=== PATIENT | male | born 1965 | race Caucasian/White ===

== ENCOUNTER 2016-11-08 09:59 | Emergency (ER) | payer OTHER, BC ==
[~2016-11-08] VITALS: Ht 185.4 cm; Wt 119.7 kg
[~2016-11-08 09:59] MED LIST: ASPI81TA28 PO; B-CO-34 PO; CALC1CAP36 PO; CRS10 PO; INSUINJ12 SC; LBT100 PO; LSX80 PO; NVLGI SC; PHS667 PO; TICA1TAB PO
[2016-11-08 10:12] VITALS: TEMP 36.9; Ht 185.4 cm; Wt 119.7 kg
[2016-11-08] MEDS ORDERED: INSPMPNVLG (10:49)
[2016-11-08] MEDS ORDERED: FURO80TA63 PO (10:49)
--- NOTE | 2016-11-08 11:02 | DIAGNOSTIC IMAGING REPORT ---
RIGHT FOOT 3 VIEWS HISTORY: Right foot pain. COMPARISON: None. FINDINGS: Fracture within the anterior to mid calcaneus which demonstrates inferior displacement of the fragment measuring up to 5 mm. This favors a subacute/healing fracture. The fracture is likely comminuted. Soft tissue swelling within the hindfoot. The Lisfranc joint is intact. Vascular calcifications are noted. Mild dorsal forefoot soft tissue swelling. Small focal erosion within the head of the proximal phalanx of the first toe and head of the third metatarsal demonstrating sclerotic and overhanging edges. Therefore, this is consistent with gouty arthritis. No radiopaque foreign bodies. IMPRESSION: 1. Comminuted and slightly displaced anterior to mid calcaneal fracture. This is age indeterminate but may represent a subacute/partial healing fracture. 2. Focal erosions at the first toe and head of the third metatarsal consistent with gouty arthritis. Electronically signed by: Dmitri Abdalla M.D. 11/08/2016 11:00 AM Dictated Date/Time: 11/08/2016 10:57 AM
--- NOTE | 2016-11-08 11:33 | DIAGNOSTIC IMAGING REPORT ---
AP PELVIS AND RIGHT HIP 4 VIEWS CLINICAL HISTORY: Right hip pain COMPARISON STUDY: No previous studies for comparison. FINDINGS: There are vascular calcifications present. There are no acute fractures. There are no dislocations. There are bilateral femoral head neck junction bumps. This finding has been reported in femoral acetabular impingement syndrome. There are no erosive or destructive changes. IMPRESSION: 1. No acute fractures. No destructive lesions are visualized. 2. Femoral head neck junction bumps. This finding has been reported in femoral acetabular impingement syndrome Electronically signed by: Simone Chauhan M.D. 11/08/2016 11:32 AM Dictated Date/Time: 11/08/2016 11:30 AM
--- NOTE | 2016-11-08 11:54 | EMERGENCY ROOM VISIT NOTE ---
History First contact with patient: 10:43 Chief Complaint: FOOT PAIN Stated Complaint: SWELLING, PAIN TO RIGHT FOOT History of Present Illness The patient is a 51 year old male who presents to the Emergency Room via private vehicle coming by with complaints of "swelling, pain to right foot ". The patient states that last night, around 1 AM/midnight he took 2 steps, and heard a loud crack in his right heel region. He has diabetes, as well as neuropathy and is unsure if he has broken his foot. He also participates in dialysis 3 times a week, with his next episode being tomorrow 5 AM. He also has chronic pain in the right hip and right groin. He does perform lots of walking and is a assistant track and field coach. He has been seeing a chiropractor with some relief. He denies any chest pain, shortness of breath, fevers or chills. He denies any history of blood clot. He does note some swelling in the right leg. Review of Systems A complete 10-point Review of Systems was discussed with the patient, with pertinent positives and negatives listed in the History of Present Illness. All remaining Review of Systems questions can be considered negative unless otherwise specified. Past Medical/Surgical History Diabetes, dialysis, Family History No pertinent. Social History Smoking Status: Never Smoker Marital Status: Housing Status: lives with family Patient lives in [facility]. Current/Historical Medications Scheduled Aspirin (Aspirin Ec), 81 MG PO DAILY Calcitriol (Calcitriol), 0.25 MCG PO Q2D Calcium Acetate (Phoslo 667 Mg), 1,334 MG PO TIDM Furosemide (Lasix), 1 TAB PO DAILY Insulin Aspart (novoLOG INSULIN PUMP ), 1 EA N/A UD Labetalol HCl (Labetalol HCl), 200 MG PO BID Rosuvastatin Calcium (Crestor), 10 MG PO DAILY Physical Exam Vital Signs Date Time Temp Pulse Resp B/P (MAP) Pulse Ox O2 Delivery O2 Flow Rate FiO2 11/08/16 12:24 70 16 93 Room Air 11/08/16 10:23 72 16 179/83 11/08/16 10:12 36.9 75 18 148/80 95 Room Air Physical Exam VITAL SIGNS - Vital signs and nursing notes were reviewed. Patient is afebrile , blood pressure 148/80, non-tachycardic and saturating well on room air 95%. GENERAL -51-year-old male appearing his stated age who is in no acute distress. Communicates well with provider and answers questions appropriately. SKIN - Without rashes. Evidence of surgical change in the right bicep region. HEAD - NC/AT. LUNGS - Chest wall symmetric without accessory muscle use, intercostals retractions, or central cyanosis. Normal vesicular breath sounds CTA B/L. No wheezes, rales, or rhonchi appreciated. CARDIAC - RRR with S1/S2. No murmur, rubs, or gallops appreciated. ABDOMEN - Abdominal contour without pulsations or visible masses. BS normoactive all four quadrants. No tenderness, palpable masses, hepatosplenomegaly, or ascites noted. No hernia in the right inguinal canal noted. EXTREMITIES - No clubbing or peripheral cyanosis. No pretibial edema present. Tenderness to palpation overlying the calcaneal region. Slight edema noted of the right lower extremity. Decreased neurologic sensation, chronic. He is vascularly intact. +5/5 strength noted in UE/LE bilaterally. Medical Decision & Procedures ER Provider Diagnostic Interpretation: BILATERAL LOWER EXTREMITY VENOUS DOPPLER CLINICAL HISTORY: Right calf edema. Pain. COMPARISON STUDY: Bilateral lower extremity venous Doppler September 01 2013. TECHNIQUE: Sonography of the deep venous system of the bilateral lower extremities was performed. Compression and augmentation were evaluated. FINDINGS: The bilateral common femoral, superficial femoral and popliteal veins were compressible. Augmentation was normal. Flow was shown within the deep calf vessels. Note was made of right calf subcutaneous edema. IMPRESSION: No evidence of deep venous thrombus within the bilateral lower extremities. Electronically signed by: Estrada Acosta M.D. 11/08/2016 11:55 AM Dictated Date/Time: 11/08/2016 11:54 AM AP PELVIS AND RIGHT HIP 4 VIEWS CLINICAL HISTORY: Right hip pain COMPARISON STUDY: No previous studies for comparison. FINDINGS: There are vascular calcifications present. There are no acute fractures. There are no dislocations. There are bilateral femoral head neck junction bumps. This finding has been reported in femoral acetabular impingement syndrome. There are no erosive or destructive changes. IMPRESSION: 1. No acute fractures. No destructive lesions are visualized. 2. Femoral head neck junction bumps. This finding has been reported in femoral acetabular impingement syndrome Electronically signed by: Simone Chauhan M.D. 11/08/2016 11:32 AM Dictated Date/Time: 11/08/2016 11:30 AM RIGHT FOOT 3 VIEWS HISTORY: Right foot pain. COMPARISON: None. FINDINGS: Fracture within the anterior to mid calcaneus which demonstrates inferior displacement of the fragment measuring up to 5 mm. This favors a subacute/healing fracture. The fracture is likely comminuted. Soft tissue swelling within the hindfoot. The Lisfranc joint is intact. Vascular calcifications are noted. Mild dorsal forefoot soft tissue swelling. Small focal erosion within the head of the proximal phalanx of the first toe and head of the third metatarsal demonstrating sclerotic and overhanging edges. Therefore, this is consistent with gouty arthritis. No radiopaque foreign bodies. IMPRESSION: 1. Comminuted and slightly displaced anterior to mid calcaneal fracture. This is age indeterminate but may represent a subacute/partial healing fracture. 2. Focal erosions at the first toe and head of the third metatarsal consistent with gouty arthritis. Electronically signed by: Dmitri Abdalla M.D. 11/08/2016 11:00 AM Dictated Date/Time: 11/08/2016 10:57 AM Medical Decision Patient was seen and evaluated as above. After obtaining a thorough history and physical examination radiographs radiographs of the hip, foot and ultrasound of the legs to rule out DVT. Ultrasound negative. Hip reveals concerning finding for femoral acetabular impingement syndrome. No evidence of fracture. Foot reveals calcaneal fracture. The patient is on dialysis, and travels [address] He attends dialysis 3 times a week. I discussed the case with the attending physician, and subsequent to Dr. Mcgregor, who recommended that I have the patient placed in a posterior short leg, make him nonweightbearing and follow-up with him in his office. He does not appear surgical at this time. Patient was offered for us to call for services in regard to transportation to his dialysis. He at this time wishes to go home, make a few phone calls himself to see if he can arrange this. He is to call here feel any difficulties. At this time he appears stable for discharge, is nonweightbearing with crutches, was educated upon use, has excellent fit of the splint and is discharged home in good condition. He was educated upon worrisome symptoms which to return, and had questions answered prior to discharge. Patient was offered prescription strength pain medication, but declined noting that he would take ibuprofen. I informed him that this can harm the kidneys further, and discouraged its use. In the evaluation and treatment of this patient, the following differential diagnoses were considered: Hip Fracture, Hip Dislocation, Greater Trochanteric Bursitis, Musculoskeletal Pain, Lumbar Radiculopathy, Ankle Fracture, Ankle Sprain, Distal Fibula Fracture, Distal Tibia Fracture, Foot Fracture, Maisonneuve Fracture. Impression Primary Impression: Foot pain Additional Impressions: Femoral acetabular impingement Right calcaneal fracture Departure Information Dispostion Home / Self-Care Condition GOOD Referrals Drake Ann M.D. (PCP) Elier Mcgregor, DO Patient Instructions My [facility] Additional Instructions You have been treated in the Emergency Department for a right hip and right foot injury. For pain: - Regular strength (325mg/tab) Tylenol (acetaminophen) 2 tabs every 4-6 hours as needed. Do not exceed 12 tablets in a 24 hour period. Avoid taking more than 3 grams (3000 mg) of Tylenol per day. This includes any other sources of acetaminophen you may take on a regular basis. If this is a recent injury (<24 hrs), ice can be applied to the area of pain for the first 3 days to help decrease pain and inflammation. You have been provided the number for an Orthopaedic Surgeon. You should call this number as soon as possible to establish a follow-up visit from today's Emergency Department visit. Keep the ankle brace/splint in place until cleared by Orthopedics. Use the crutches you have been provided to keep ALL weight off of the ankle until weight bearing is tolerable. Return to the Emergency Department if your current symptoms worsen despite treatment course outlined above, or if you develop any of the following symptoms : intractable pain despite aforementioned treatment course or new onset of numbness or tingling of the foot. Please return to the emergency department with any new/concerning symptoms. If you have any difficulty arranging transportation to dialysis please call and ask for a correctional counselor/case manager.[phone] Problem Qualifiers
[2016-11-08 13:02] VITALS: BP 165/99; PULSE 68; O2SAT 97
== END 2016-11-08 13:02 | disposition home or self-care (01) ==
LOC: C.EDB 10:01 → C.EDA 13:02
DX: S92.001A Unspecified fracture of right calcaneus, initial encounter for closed fracture (principal); X58.XXXA Exposure to other specified factors, initial encounter; M25.859 Other specified joint disorders, unspecified hip; Z79.4 Long term (current) use of insulin; Z79.82 Long term (current) use of aspirin; Z79.899 Other long term (current) drug therapy

== ENCOUNTER → 2017-01-15 | Outpatient (CLI) | payer OTHER, BC ==
[~2017-01-15] MED LIST changes: -B-CO-34 PO; +FURO80TA63 PO; +INSPMPNVLG; -INSUINJ12 SC; -LSX80 PO; -NVLGI SC; -TICA1TAB PO
--- NOTE | 2017-01-15 11:25 | DIAGNOSTIC IMAGING REPORT ---
ULTRASOUND RIGHT LOWER EXTREMITY VENOUS CLINICAL HISTORY: Right leg swelling. Recent surgery. COMPARISON STUDY: Right lower extremity venous ultrasound dated 11/08/2016. TECHNIQUE: Real-time, grayscale, and color Doppler sonography of the deep veins of the right lower extremity was performed from the inguinal crease to the calf. Compression and augmentation were utilized. FINDINGS: There is no sonographic evidence of deep venous thrombosis identified in the right lower extremity. The common femoral, superficial femoral, and popliteal veins are patent and normally compressible. The greater saphenous vein and the profunda femoris vein at the junction with the common femoral vein are clear. The visualized calf veins are patent. Subcutaneous soft tissue edema is seen in the calf. IMPRESSION: There is no sonographic evidence of deep venous thrombosis identified in the right lower extremity. Electronically signed by: Geovanny Frye M.D. 01/15/2017 11:24 AM Dictated Date/Time: 01/15/2017 11:23 AM
== END | disposition home or self-care (01) ==
LOC: C.ULTR 09:59
PROVIDERS: ATTEND Physician Assistant
DX: Z98.890 Other specified postprocedural states (principal)

== ENCOUNTER 2020-10-24 18:55 | Inpatient (IN) ==
[2020-10-24] MEDS ORDERED: ONDANSETRON INJ 2 MG/ML 2 ML VIAL IV STA (21:19)
[2020-10-24] MEDS ORDERED: HYOSCYAMINE SULFATE 0.125 MG TAB SL STA (21:19)
--- NOTE | 2020-10-24 21:26 | Emergency Department Note ---
History of Present Illness General Chief complaint: Illness Stated complaint: VOMITING, NAUSEA, DIARRHEA Time Seen by Provider: 10/24/20 21:08 Source: patient History of Present Illness Provider complaint: Abdominal pain Onset (ago): week(s) Location: abdomen Severity: severe Pain Consistency: + constant Maximum Pain Intensity: 10 Quality: + other (Cramping) Relieved By: + none Associated symptoms: + nausea/vomiting (Nausea without vomiting); no chest pain, no cough, no fever/chills or no shortness of breath This is a 55-year-old male who presents with abdominal pain for the past week. He describes it as a pressure cramping pain. He rates it a 10 out of 10 in [facility]. He states is located in the lower abdomen. No modifying factors. He does state he has diarrhea with it. He is going to the bathroom every 2-3 hours. Initially he was having diarrhea more often but it has slowed down. It is watery without blood. He was vomiting previously but stopped vomiting 2 days ago. He has been nauseated and trying to induce himself to vomit. He denies any fever, cough or cold symptoms, chest pain, or shortness of breath. He has had the Covid vaccination. He did have dialysis today and feels like he is losing weight. He has not eaten over the past 2 days because he is so nauseated. He does get dialyzed 3 times a week. He does make some urine and has been making some urine since his illness started. Home Medications Medication Instructions Recorded Confirmed Type aspirin 81 mg tablet,delayed 81 mg PO DAILY 11/18/18 10/24/20 History release (Adult Aspirin Regimen) calcitriol 0.25 mcg capsule 0.25 mcg PO Q OTHER DAY cap 11/18/18 10/24/20 History cinacalcet 90 mg tablet (Sensipar) 90 mg PO DAILY 03/24/19 10/24/20 History furosemide 80 mg tablet (Lasix) 80 mg PO BID #180 tab 05/25/19 10/24/20 Rx labetalol 100 mg tablet 100 mg PO BID #180 tab 12/28/19 10/24/20 Rx insulin aspart U-100 100 unit/mL 70 unit CONTINUOUS SUBCUTANEOUS 01/11/20 10/24/20 Rx subcutaneous solution (Novolog INFUSION DAILY 90 Days #63 ml U-100 Insulin aspart) rosuvastatin 10 mg tablet 10 mg PO DAILY #90 tab 08/19/20 10/24/20 Rx clopidogrel 75 mg tablet 75 mg PO DAILY 10/23/20 10/24/20 History ondansetron HCl 4 mg tablet 4 mg PO Q6H PRN #10 tab 10/23/20 10/24/20 Rx (Zofran) sevelamer carbonate 800 mg tablet 2,400 mg PO ACHS 10/23/20 10/24/20 History Allergies Allergy/AdvReac Type Severity Reaction Status Date / Time No Known Allergies Allergy Unverified 10/24/20 23:09 Past Med/Surg History Medical History Acquired claw toe of left foot Acquired claw toe of right foot Anemia CAD (coronary artery disease) CAD (coronary atherosclerotic disease) CHF (congestive heart failure) Decreased sensation of foot Diabetes 1.5, 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, uncontrolled Diabetic neuropathy associated with secondary diabetes mellitus ESRD (end stage renal disease) on dialysis Foot ulcer, left Foot ulcer, right Hallux valgus (acquired), right foot HTN (hypertension) HTN, goal to be determined Hyperlipidemia Insulin pump in place Surgical History H/O eye surgery History of cataract surgery History of thoracic surgery S/P arteriovenous (AV) fistula creation S/P coronary artery stent placement Status post right foot surgery Family History Mother History of hip replacement Carpal tunnel syndrome Father Myocardial infarction Cardiac arrest History of hernia repair Stroke Hypertension Dyslipidemia A-fib Brother Hypertension Social History Smoking Status: Never smoker Second Hand Exposure: No; Do You Dip or Chew Tobacco: No; Tobacco Cessation Education Requested by Patient: No Hx Alcohol Use: Yes Alcohol type: beer Hx Substance Use: No Preferred Language: French Communication Ability: Effective Visual Impairment: Limited Hearing Ability: Normal Glass Glazier Required: No Beliefs That Will Affect Care: None marital status: Current Living Situation: Spouse current occupational status: retired and disabled Other Information That Helps Us Care for You: No Feels Safe at Home: Yes Safety Concerns: Feels Safe At This Time Assistive Devices: None Review of Systems See HPI for pertinent positives & negatives. and A total of 10 systems reviewed and were otherwise negative Physical Exam Vital Signs Vital Signs - 24 hr 10/24/20 19:26 10/24/20 21:54 10/24/20 22:00 Temperature 36.6 C Temperature Source Temporal Artery Scan Pulse Rate 76 70 70 Pulse Rate [Finger] Pulse Rate from SpO2 Sensor Respiratory Rate 24 21 21 Respiratory Effort / Characteristics Respiratory Depth Normal Blood Pressure 121/72 Blood Pressure [Left Arm] Blood Pressure Mean 88 Blood Pressure Mean [Left Arm] Pulse Oximetry 96 Oxygen Delivery Method Room Air Room Air Room Air Sepsis New/Unexplained Change in Mental Status N/A Sepsis Action Taken by Nursing No Action Required 10/24/20 22:10 10/24/20 22:29 Temperature Temperature Source Pulse Rate 72 Pulse Rate [Finger] 78 Pulse Rate from SpO2 Sensor 79 Respiratory Rate 18 24 Respiratory Effort / Characteristics Non-Labored Spontaneous Respiratory Depth Normal Blood Pressure Blood Pressure [Left Arm] 110/60 Blood Pressure Mean Blood Pressure Mean [Left Arm] 76 Pulse Oximetry 91 Oxygen Delivery Method Room Air Room Air Sepsis New/Unexplained Change in Mental Status Sepsis Action Taken by Nursing Constitutional: Vital signs reviewed. Eyes: Pupils are equal round reactive to light. Conjunctiva are noninjected. ENT: Pharynx is clear without erythema or exudate. Mucous membranes are dry. Neck supple without meningeal signs. Respiratory: Clear to auscultation bilaterally. Breath sounds are equal b ilaterally. Cardiovascular: Regular rate and rhythm. No rubs or gallops. GI: Soft, nondistended and nontender. Bowel sounds are present. Musculoskeletal: No peripheral edema. No lower extremity tenderness. Integumentary: No cyanosis. or jaundice. Neurological: The patient is awake and alert. No focal deficits. Psychiatric: Anxious. Course Administered Medications Acetaminophen (Acetaminophen 325 Mg Tab) 650 mg PO Q4H PRN PRN Reason: pain/fever Stop: 11/24/20 04:19 Last Admin: 10/25/20 09:41 Dose: 650 mg Documented by: [id number] Aspirin (Aspirin 81 Mg Ectab) 81 mg PO DAILY [facility] Stop: 11/24/20 08:59 Last Admin: 10/26/20 18:27 Dose: 81 mg Documented by: [id number] Admin: 10/25/20 09:42 Dose: 81 mg Documented by: [id number] Calcitriol (Calcitriol 0.25 Mcg Capsule) 0.25 mcg PO Q2D@0900 [facility] Stop: 11/25/20 08:59 Last Admin: 10/26/20 18:26 Dose: Not Given Documented by: [id number] Cinacalcet (Cinacalcet Hcl 90 Mg Tab) 90 mg PO DAILY [facility] Stop: 11/24/20 08:59 Last Admin: 10/26/20 18:30 Dose: 90 mg Documented by: [id number] Admin: 10/25/20 11:37 Dose: Not Given Documented by: [id number] Ciprofloxacin (Ciprofloxacin 500 Mg Tab) 500 mg PO DAILY [facility]; Protocol Stop: 11/05/20 12:44 Last Admin: 10/26/20 18:29 Dose: 500 mg Documented by: [id number] Clopidogrel Bisulfate (Clopidogrel Bisulfate 75 Mg Tab) 75 mg PO DAILY [facility] Stop: 11/24/20 08:59 Last Admin: 10/25/20 09:43 Dose: Not Given Documented by: [id number] Furosemide (Furosemide 80 Mg Tab) 80 mg PO BID17 [facility] Stop: 11/24/20 08:59 Last Admin: 10/26/20 18:29 Dose: 80 mg Documented by: [id number] Admin: 10/26/20 09:21 Dose: Not Given Documented by: [id number] Admin: 10/25/20 17:53 Dose: Not Given Documented by: [id number] Admin: 10/25/20 09:42 Dose: 80 mg Documented by: [id number] Hydromorphone HCl (Hydromorphone Inj 0.5 Mg/0.5 Ml Syr) 0.2 mg IV Q6H PRN PRN Reason: Pain Stop: 11/08/20 15:08 Last Admin: 10/25/20 23:25 Dose: 0.2 mg Documented by: [id number] Admin: 10/25/20 15:41 Dose: 0.2 mg Documented by: [id number] Insulin Aspart (Novolog Insulin Pump) 1 ea N/A Q6 [facility]; Protocol Stop: 11/25/20 05:59 Last Admin: 10/26/20 18:32 Dose: 1 ea Documented by: [id number] Admin: 10/26/20 12:22 Dose: 1 ea Documented by: [id number] Admin: 10/26/20 05:52 Dose: Not Given Documented by: [id number] Cosigned by: [id number] Labetalol HCl (Labetalol Hcl 100 Mg Tab) 100 mg PO BID [facility] Stop: 11/24/20 08:59 Last Admin: 10/26/20 09:21 Dose: Not Given Documented by: [id number] Admin: 10/25/20 20:44 Dose: Not Given Documented by: [id number] Admin: 10/25/20 09:43 Dose: 100 mg Documented by: [id number] Metronidazole (Metronidazole 500 Mg Tab) 500 mg PO TID [facility] Stop: 11/05/20 13:59 Last Admin: 10/26/20 18:29 Dose: 500 mg Documented by: [id number] Rosuvastatin Calcium (Rosuvastatin Calcium 10 Mg Tab) 10 mg PO DAILY [facility] Stop: 11/24/20 08:59 Last Admin: 10/26/20 18:29 Dose: 10 mg Documented by: [id number] Admin: 10/25/20 09:43 Dose: 10 mg Documented by: [id number] Sevelamer HCl (Sevelamer Hcl 800 Mg Tablet) 2,400 mg PO ACHS [facility] Stop: 11/24/20 07:29 Last Admin: 10/26/20 18:27 Dose: Not Given Documented by: [id number] Admin: 10/26/20 18:26 Dose: Not Given Documented by: [id number] Admin: 10/26/20 08:41 Dose: Not Given Documented by: [id number] Admin: 10/25/20 20:45 Dose: Not Given Documented by: [id number] Admin: 10/25/20 17:50 Dose: Not Given Documented by: [id number] Admin: 10/25/20 11:38 Dose: Not Given Documented by: [id number] Admin: 10/25/20 11:37 Dose: Not Given Documented by: [id number] Discontinued Medications Fentanyl Citrate (Fentanyl Citrate 100 Mcg/2 Ml Vial) Confirm Administered Dose 100 mcg .ROUTE .STK-MED ONE Stop: 10/26/20 10:32 Last Admin: 10/26/20 12:03 Dose: Not Given Documented by: [id number] Hydromorphone HCl (Hydromorphone Inj 0.5 Mg/0.5 Ml Syr) 0.5 mg IV NOW STA Stop: 10/24/20 22:31 Last Admin: 10/24/20 22:32 Dose: 0.5 mg Documented by: [id number] Hyoscyamine (Hyoscyamine Sulfate 0.125 Mg Tab) 0.125 mg SL NOW STA Stop: 10/24/20 21:20 Last Admin: 10/24/20 21:45 Dose: 0.125 mg Documented by: [id number] Sodium Chloride (Nss 1000ml) 250 mls @ 999 mls/hr IV .Q16M ONE Stop: 10/24/20 23:25 Last Infusion: 10/25/20 00:20 Dose: 0 mls/hr Documented by: [id number] Admin: 10/24/20 23:21 Dose: 999 mls/hr Documented by: [id number] Insulin Aspart (Novolog Insulin Pump) 1 ea N/A [facility]; Protocol Stop: 11/24/20 11:29 Last Admin: 10/25/20 20:45 Dose: 1 ea Documented by: [id number] Admin: 10/25/20 17:50 Dose: 1 ea Documented by: [id number] Admin: 10/25/20 13:12 Dose: 1 ea Documented by: [id number] Lidocaine HCl (Lidocaine 2% 2 Ml Vial/Amp(20mg/Ml)) Confirm Administered Dose 4 ml INFIL .STK-MED ONE Stop: 10/26/20 09:56 Last Admin: 10/26/20 12:01 Dose: Not Given Documented by: [id number] Miscellaneous (Endoscopic Marker 5 Ml Syr) Confirm Administered Dose 5 ml TOP .STK-MED ONE Stop: 10/26/20 10:27 Last Admin: 10/26/20 12:02 Dose: Not Given Documented by: [id number] Ondansetron HCl (Ondansetron Inj 2 Mg/Ml 2 Ml Vial) 4 mg IV NOW STA Stop: 10/24/20 21:20 Last Admin: 10/24/20 21:45 Dose: 4 mg Documented by: [id number] Ondansetron HCl (Ondansetron Inj 2 Mg/Ml 2 Ml Vial) Confirm Administered Dose 4 mg .ROUTE .STK-MED ONE Stop: 10/26/20 10:32 Last Admin: 10/26/20 12:04 Dose: Not Given Documented by: [id number] Phenylephrine HCl (Phenylephrine 100mcg/Ml 5ml Syr) Confirm Administered Dose 100 mcg .ROUTE .STK-MED ONE Stop: 10/26/20 10:32 Last Admin: 10/26/20 12:05 Dose: Not Given Documented by: [id number] Polyethylene Glycol/Electrolytes (Lavage Solution 4000ml) 8 dose PO UD [facility] Stop: 10/25/20 23:59 Last Admin: 10/25/20 14:49 Dose: 8 dose Documented by: [id number] Propofol (Propofol Iv Emulsion 10 Mg/Ml 20 Ml Vial) Confirm Administered Dose 400 mg IV .STK-MED ONE Stop: 10/26/20 09:56 Last Admin: 10/26/20 12:01 Dose: Not Given Documented by: [id number] Medical Decision Making Differential Diagnosis Acute gastroenteritis, foodborne illness, electrolyte abnormality, colitis, colon mass Medical Records Attestation: I reviewed the patient's medical records. I did perform a limited focused review of portions of the patient's old chart on the electronic medical record. The patient was seen here yesterday for the same symptoms. He had a CT of the abdomen which showed focal thickening of the proximal transverse colon which is concerning for focal colitis versus a colonic mass. He had nondilated loops of bowel with fluid in them consistent with a gastroenteritis. Stool cultures are negative and C. difficile testing was negative as well. Home Medications Current Medication List: was personally reviewed by me Laboratory Data Attestation: I reviewed the patient's lab results. Result diagrams: 10/26/20 07:39 10/26/20 07:39 Lab Results 10/24/20 10/24/20 10/24/20 Range/Units 21:35 21:35 23:13 WBC 16.98 H (4.8-10.8) K/uL RBC 4.04 L (4.7-6.1) M/uL Hgb 12.3 L (14.0-18.0) g/dL Hct 38.9 L (42-52) % MCV 96.3 (80-100) fL MCH 30.4 (25-34) pg MCHC 31.6 L (32-36) g/dL RDW Std Deviation 58.9 H (36.4-46.3) fL RDW Coeff of Tl 16.7 H (11.5-14.5) % Plt Count 353 (130-400) K/uL MPV 9.4 (7.4-10.4) fL Immature Gran % (Auto) 0.7 % Neut % (Auto) 82.3 % Lymph % (Auto) 5.3 % Morrow % (Auto) 11.2 % Eos % (Auto) 0.4 % Baso % (Auto) 0.1 % Neut # (Auto) 13.97 H (1.4-6.5) K/uL Lymph # (Auto) 0.90 L (1.2-3.4) K/uL Morrow # (Auto) 1.91 H (0.11-0.59) K/uL Eos # (Auto) 0.07 (0-0.5) K/uL Baso # (Auto) 0.01 (0-0.2) K/uL Immature Gran # (Auto) 0.12 H (0.00-0.02) K/uL Sodium 134 L (136-145) mmol/L Potassium 4.1 (3.5-5.1) mmol/L Chloride 95 L (98-107) mmol/L Carbon Dioxide 30 (21-32) mmol/L Anion Gap 9.0 (3-11) BUN 22 H (7-18) mg/dl Creatinine 6.74 H* D (0.6-1.4) mg/dl Est Cr Clr Drug Dosing Not Reportable Est GFR ( Amer) 9.7 ml/min Est GFR (Non-Af Amer) 8.4 ml/min BUN/Creatinine Ratio 3.3 L (10-20) Glucose 159 H (70-99) mg/dl POC Glucose (70-99) mg/dl Calcium 9.9 (8.5-10.1) mg/dl Total Bilirubin 0.5 (0.2-1) mg/dl AST 24 (15-37) U/L ALT 13 (12-78) U/L Alkaline Phosphatase 91 (45-117) U/L Total Protein 7.5 (6.4-8.2) gm/dl Albumin 2.7 L (3.4-5.0) gm/dl Globulin 4.8 H (2.5-4.0) gm/dl Albumin/Globulin Ratio 0.6 L (0.9-2) Lipase 28 L (73-393) U/L COVID-19 Eval Order Covid19 IDNow [facility] SARS-CoV-2, RNA, NAAT (NEGATIVE) 10/24/20 10/25/20 Range/Units 23:13 00:33 WBC (4.8-10.8) K/uL RBC (4.7-6.1) M/uL Hgb (14.0-18.0) g/dL Hct (42-52) % MCV (80-100) fL MCH (25-34) pg MCHC (32-36) g/dL RDW Std Deviation (36.4-46.3) fL RDW Coeff of Tl (11.5-14.5) % Plt Count (130-400) K/uL MPV (7.4-10.4) fL Immature Gran % (Auto) % Neut % (Auto) % Lymph % (Auto) % Morrow % (Auto) % Eos % (Auto) % Baso % (Auto) % Neut # (Auto) (1.4-6.5) K/uL Lymph # (Auto) (1.2-3.4) K/uL Morrow # (Auto) (0.11-0.59) K/uL Eos # (Auto) (0-0.5) K/uL Baso # (Auto) (0-0.2) K/uL Immature Gran # (Auto) (0.00-0.02) K/uL Sodium (136-145) mmol/L Potassium (3.5-5.1) mmol/L Chloride (98-107) mmol/L Carbon Dioxide (21-32) mmol/L Anion Gap (3-11) BUN (7-18) mg/dl Creatinine (0.6-1.4) mg/dl Est Cr Clr Drug Dosing Est GFR ( Amer) ml/min Est GFR (Non-Af Amer) ml/min BUN/Creatinine Ratio (10-20) Glucose (70-99) mg/dl POC Glucose 193 H (70-99) mg/dl Calcium (8.5-10.1) mg/dl Total Bilirubin (0.2-1) mg/dl AST (15-37) U/L ALT (12-78) U/L Alkaline Phosphatase (45-117) U/L Total Protein (6.4-8.2) gm/dl Albumin (3.4-5.0) gm/dl Globulin (2.5-4.0) gm/dl Albumin/Globulin Ratio (0.9-2) Lipase (73-393) U/L COVID-19 Eval Order SARS-CoV-2, RNA, NAAT NEGATIVE (NEGATIVE) Imaging Data Attestation: I personally reviewed and interpreted this imaging study as follows: My Impression: Acute abdominal series x-rays per my interpretation shows no acute cardiopulmonary process. There is no evidence of free air or bowel obstruction. MDM Narrative I did evaluate the patient as noted above. The patient is presenting with persistent symptoms. He was seen here yesterday for the same symptoms and had a CT of the abdomen pelvis, blood work and stool tests. His CT was consistent with a enteritis. He is no longer vomiting but still nauseated. On examination he has no tenderness to his abdomen to suggest an acute surgical process. IV access was established. I did treat him with IV Zofran and Levsin sublingually. He was given a small amount of fluids as he does appear dehydrated and has not eaten anything over the past 2 days. I did order and personally reviewed the images of the patient's abdominal and chest x-rays as described above. There is no evidence of free air or acute process. I did order and review the patient's blood work as noted in the electronic medical record. His white blood cell count is still elevated although slightly higher today. Hemoglobin is 12. Electrolytes show a sodium of 134. His creatinine is 6.74 with a potassium of 4.1. Lipase and LFTs are unremarkable. I reassessed the patient. I did discuss the test results with the patient and his . He stated that the Levsin did nothing for his pain and so he was given Dilaudid 0.5 mg IV. On reassessment he is feeling much better. He became slightly hypoventilatory and so he is placed on oxygen briefly. 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 The Covid test came back negative. On reassessment he is awake and states he wants to go home. He was sitting up and taken off of oxygen. He drank diet Sprite. He drank this but fell asleep again and his O2 saturations dropped slightly and so he was kept on the monitor and oxygen for some time. He did not improve and so was hospitalized. Impression & Plan Acute dehydration, ESRD (end stage renal disease), Enteritis, Abdominal pain, lower Discharge Plan Visit Data Chief Complaint: Illness Stated Complaint: VOMITING, NAUSEA, DIARRHEA ED Provider: Neal Holley Discharge Problem: Acute dehydration, ESRD (end stage renal disease), Enteritis, Abdominal pain, lower Patient Disposition: Being Evaluated by Hospitalist Condition: Good Discharge Instructions Interventions: ED Discharge Assessment Last Done: 10/25/20 04:10
[2020-10-24 22:13] LABS: Basophils # (auto) 0.01 K/uL (0-0.2); Basophils % (auto) 0.1 %; Eosinophils # (auto) 0.07 K/uL (0-0.5); Eosinophils % (auto) 0.4 %; Hematocrit (blood only) 38.9 % (42-52); Hemoglobin 12.3 g/dL (14.0-18.0); Immature Granulocytes # (auto) 0.12 K/uL (0.00-0.02); Immature Granulocytes % (auto) 0.7 %; Lymphocytes % (auto) 5.3 %; Mean Corpuscular Hemoglobin 30.4 pg (25-34); Mean Corpuscular Hgb Conc 31.6 g/dL (32-36); Mean Corpuscular Volume 96.3 fL (80-100); Mean Platelet Volume 9.4 fL (7.4-10.4); Monocytes # (auto) 1.91 K/uL (0.11-0.59); Monocytes % (auto) 11.2 %; Neutrophils # (auto) 13.97 K/uL (1.4-6.5); Neutrophils % (auto) 82.3 %; Platelet Count 353 K/uL (130-400); RDW Coefficient of Variation 16.7 % (11.5-14.5); RDW Standard Deviation 58.9 fL (36.4-46.3); Red Blood Count 4.04 M/uL (4.7-6.1); White Blood Count 16.98 K/uL (4.8-10.8)
[2020-10-24 22:28] LABS: Alanine Aminotransferase 13 U/L (12-78); Albumin Globulin Ratio 0.6 (0.9-2); Albumin Level 2.7 gm/dl (3.4-5.0); Alkaline Phosphatase 91 U/L (45-117); Aspartate Aminotransferase 24 U/L (15-37); BUN Creatinine Ratio 3.3 (10-20); Bilirubin,Total 0.5 mg/dl (0.2-1); Blood Urea Nitrogen 22 mg/dl (7-18); Calcium 9.9 mg/dl (8.5-10.1); Carbon Dioxide 30 mmol/L (21-32); Chloride 95 mmol/L (98-107); Est GFR (African American) 9.7 ml/min; Est GFR (Non-African American) 8.4 ml/min; Globulin 4.8 gm/dl (2.5-4.0); Glucose 159 mg/dl (70-99); Lipase 28 U/L (73-393); Potassium 4.1 mmol/L (3.5-5.1); Sodium 134 mmol/L (136-145); Total Protein 7.5 gm/dl (6.4-8.2)
[2020-10-24] MEDS ORDERED: HYDROmorphone INJ 0.5 MG/0.5 ML SYR IV STA (22:30)
[2020-10-24] MEDS ORDERED: SODIUM CHLORIDE 0.9% 1000ML 250 ML IV ONE (23:10)
--- NOTE | 2020-10-25 02:27 | History & Physical Report ---
Date of Service October 25, 2020 Assessment & Plan (1) Abdominal pain: Plan: 55 yo M with Dm1, HFrEF (40%), HTN, HLD, CAD admitted for workup of worsening abd pain/N/V and new hypoxia. 1. Abdominal Pain/N/V - CT abd wo con repeat pending. film from 10/24 showing colitis vs colonic mass? unable to use contrast due to ESRD. if worsening colitis on CT can initiate ABx. - possible gastroparesis 2/2 DM1 - GI consult for gastroparesis/colonic mass workup - zofran, compazine for N/V - gentle rehydration - stool culture negative, cdiff negative. stool ova+parasite pending. - patient is one of multiple associated with recent camping at [address] [place] [address] seen in ER who have had profuse watery diarrhea 2. Hypoxia - aspiration with vomiting? - cxr demonstrating some basilar opacity, unsure if aspiration pneumonitis vs. atelectasis - Chest CT wo con pending - satting 95% on 2L NC ESRD - MWF dialysis - nephro consult - cont sevelamer, cinacalcet, calcitriol DM1 - insulin pump in place - pharmacy glycemic consult HTN - cont labetalol, consider switching to metoprolol CAD - cont statin, aspirin, plavix CHF - continue lasix, see above for metoprolol and CHF medication optimization dvt ppx: lovenox fen/gi: NPO with sips and chips, famotidine. advance diet as tolerated Code status: full code dispo: med/surg (2) Colitis: (3) Diarrhea: (4) Insulin pump in place: (5) HTN (hypertension): (6) CAD (coronary artery disease): (7) ESRD (end stage renal disease): (8) Congestive heart failure: History of Present Illness Primary Care Provider: SYEDA Gonzalez 55 yo M returning to ER after being here yesterday for worsening sx of N/V/D. states it's been going on for 1-1.5 weeks. Was in ER yesterday, had labs and CT abd done showing some colitis, sent home after having zofran and stool sample taken. Today says all symptoms have been worse. 3 large "blow out" episodes of watery diarrhea while in ER, denies bloody stool, melena. Was at [employer] camp in [address] [place] [address] over the weekend where he drank bottled water, but says the symptoms preceded that trip. denies any SOB but does have to take small bursts of fast breaths to breathe through the pain. Describes pain as more of an abdominal discomfort located in lower abdomen, achy, feeling of needing to go to bathroom but not being able to. Mostly has been nauseous without vomiting at this point as he hasn't really eaten anything in 2 days. Denies fever/chills/night sweats. Allergies Allergy/AdvReac Type Severity Reaction Status Date / Time No Known Allergies Allergy Unverified 10/24/20 23:09 Home Medications Medication Instructions Recorded Confirmed Type aspirin 81 mg tablet,delayed 81 mg PO DAILY 11/18/18 10/24/20 History release (Adult Aspirin Regimen) calcitriol 0.25 mcg capsule 0.25 mcg PO Q OTHER DAY cap 11/18/18 10/24/20 History cinacalcet 90 mg tablet (Sensipar) 90 mg PO DAILY 03/24/19 10/24/20 History furosemide 80 mg tablet (Lasix) 80 mg PO BID #180 tab 05/25/19 10/24/20 Rx labetalol 100 mg tablet 100 mg PO BID #180 tab 12/28/19 10/24/20 Rx insulin aspart U-100 100 unit/mL 70 unit CONTINUOUS SUBCUTANEOUS 01/11/20 10/24/20 Rx subcutaneous solution (Novolog INFUSION DAILY 90 Days #63 ml U-100 Insulin aspart) rosuvastatin 10 mg tablet 10 mg PO DAILY #90 tab 08/19/20 10/24/20 Rx clopidogrel 75 mg tablet 75 mg PO DAILY 10/23/20 10/24/20 History ondansetron HCl 4 mg tablet 4 mg PO Q6H PRN #10 tab 10/23/20 10/24/20 Rx (Zofran) sevelamer carbonate 800 mg tablet 2,400 mg PO ACHS 10/23/20 10/24/20 History Past Med/Surg History Medical History Acquired claw toe of left foot Acquired claw toe of right foot Anemia CAD (coronary artery disease) CAD (coronary atherosclerotic disease) CHF (congestive heart failure) Decreased sensation of foot Diabetes 1.5, 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, uncontrolled Diabetic neuropathy associated with secondary diabetes mellitus ESRD (end stage renal disease) on dialysis Foot ulcer, left Foot ulcer, right Hallux valgus (acquired), right foot HTN (hypertension) HTN, goal to be determined Hyperlipidemia Insulin pump in place Surgical History H/O eye surgery History of cataract surgery History of thoracic surgery S/P arteriovenous (AV) fistula creation S/P coronary artery stent placement Status post right foot surgery Family History Mother History of hip replacement Carpal tunnel syndrome Father Myocardial infarction Cardiac arrest History of hernia repair Stroke Hypertension Dyslipidemia A-fib Brother Hypertension Social History Smoking Status: Never smoker Second Hand Exposure: No; Do You Dip or Chew Tobacco: No; Tobacco Cessation Education Requested by Patient: No Hx Alcohol Use: Yes Alcohol type: beer Hx Substance Use: No Preferred Language: Irish Communication Ability: Effective Visual Impairment: Limited Hearing Ability: Normal Animal Surgeon Required: No Beliefs That Will Affect Care: None marital status: Current Living Situation: Spouse current occupational status: retired and disabled Other Information That Helps Us Care for You: No Feels Safe at Home: Yes Safety Concerns: Feels Safe At This Time Assistive Devices: Cane Review of Systems Review of Systems: All systems reviewed & are unremarkable except as noted in Subjective Physical Exam Physical Exam: Constitutional: obese, in no apparent distress, sitting comfortably in bed. Eyes: EOMI, pupils equal and reactive bilaterally, no scleral icterus Cardiac: RRR, no murmurs, gallops or rubs. Normal S1, S2 Pulm: CTA BL, no wheezes, rhonchi, crackles or rubs, moving air well throughout both lungs Abd: soft, distended, normal bowel sounds,diffusely tender. Extremities: 2+ peripheral pulses, no edema Neuro: no focal deficits, moving all 4 limbs, A&Ox3 Results & Data Results & Data ([facility]) Vital Signs (Past 12 Hours) Vital Signs Temp Pulse Pulse Resp BP BP Pulse Ox 10/25/20 01:00 68 26 H 138/74 93 10/25/20 00:30 77 25 H 128/61 100 10/25/20 00:00 83 108/55 L 81 L 10/24/20 23:30 70 27 H 127/64 96 10/24/20 22:29 78 24 110/60 91 10/24/20 22:10 72 18 10/24/20 22:00 70 21 10/24/20 21:54 70 21 10/24/20 19:26 36.6 C 76 24 121/72 96 Laboratory Results Laboratory Results WBC 16.98 K/uL (4.8-10.8) H 10/24/20 21:35 RBC 4.04 M/uL (4.7-6.1) L 10/24/20 21:35 Hgb 12.3 g/dL (14.0-18.0) L 10/24/20 21:35 Hct 38.9 % (42-52) L 10/24/20 21:35 MCV 96.3 fL (80-100) 10/24/20 21:35 MCH 30.4 pg (25-34) 10/24/20 21:35 MCHC 31.6 g/dL (32-36) L 10/24/20 21:35 RDW Std Deviation 58.9 fL (36.4-46.3) H 10/24/20 21:35 RDW Coeff of Tl 16.7 % (11.5-14.5) H 10/24/20 21:35 Plt Count 353 K/uL (130-400) 10/24/20 21:35 MPV 9.4 fL (7.4-10.4) 10/24/20 21:35 Immature Gran % (Auto) 0.7 % 10/24/20 21:35 Neut % (Auto) 82.3 % 10/24/20 21:35 Lymph % (Auto) 5.3 % 10/24/20 21:35 [place] % (Auto) 11.2 % 10/24/20 21:35 Eos % (Auto) 0.4 % 10/24/20 21:35 Baso % (Auto) 0.1 % 10/24/20 21:35 Neut # (Auto) 13.97 K/uL (1.4-6.5) H 10/24/20 21:35 Lymph # (Auto) 0.90 K/uL (1.2-3.4) L 10/24/20 21:35 [place] # (Auto) 1.91 K/uL (0.11-0.59) H 10/24/20 21:35 Eos # (Auto) 0.07 K/uL (0-0.5) 10/24/20 21:35 Baso # (Auto) 0.01 K/uL (0-0.2) 10/24/20 21:35 Immature Gran # (Auto) 0.12 K/uL (0.00-0.02) H 10/24/20 21:35 Sodium 134 mmol/L (136-145) L 10/24/20 21:35 Potassium 4.1 mmol/L (3.5-5.1) 10/24/20 21:35 Chloride 95 mmol/L (98-107) L 10/24/20 21:35 Carbon Dioxide 30 mmol/L (21-32) 10/24/20 21:35 Anion Gap 9.0 (3-11) 10/24/20 21:35 BUN 22 mg/dl (7-18) H 10/24/20 21:35 Creatinine 6.74 mg/dl (0.6-1.4) H* D 10/24/20 21:35 Est Cr Clr Drug Dosing Not Reportable 10/24/20 21:35 Est GFR ( Amer) 9.7 ml/min 10/24/20 21:35 Est GFR (Non-Af Amer) 8.4 ml/min 10/24/20 21:35 BUN/Creatinine Ratio 3.3 (10-20) L 10/24/20 21:35 Glucose 159 mg/dl (70-99) H 10/24/20 21:35 POC Glucose 193 mg/dl (70-99) H 10/25/20 00:33 Calcium 9.9 mg/dl (8.5-10.1) 10/24/20 21:35 Total Bilirubin 0.5 mg/dl (0.2-1) 10/24/20 21:35 AST 24 U/L (15-37) 10/24/20 21:35 ALT 13 U/L (12-78) 10/24/20 21:35 Alkaline Phosphatase 91 U/L (45-117) 10/24/20 21:35 Total Protein 7.5 gm/dl (6.4-8.2) 10/24/20 21:35 Albumin 2.7 gm/dl (3.4-5.0) L 10/24/20 21:35 Globulin 4.8 gm/dl (2.5-4.0) H 10/24/20 21:35 Albumin/Globulin Ratio 0.6 (0.9-2) L 10/24/20 21:35 Lipase 28 U/L (73-393) L 10/24/20 21:35 COVID-19 Eval Order Covid19 [facility] 10/24/20 23:13 SARS-CoV-2, RNA, NAAT NEGATIVE (NEGATIVE) 10/24/20 23:13 Supervising Physician Co-Signing Physician Notes Attending addendum: I have physically seen this patient, have supervised the medical residents activities, and agree with the H&P unless as otherwise noted. Assessment and Plan: Abdominal pain/nausea/vomiting- Second ED visit in [address] pending to compare to 10/24 which showed colitis versus colonic mass Symptoms worsening Suspect underlying gastroparesis associated with diabetes mellitus as a factor Stool culture and C. difficile negative from 10/24 Send stool for O&P Patient was at a gathering over the weekend with recent camping at [address] Therefore, likely a viral process and/or issue with ova and parasites Hold on more aggressive treatment until repeat CT results back ESRD on HD- Status post dialysis earlier in the day Dialysis Saturday Consult nephrology Remaining orders and notations as noted Resident Activity Tracking Resident Involvement: Resident Care Provided Care Provided: Adult Hospital Medicine (1) Diarrhea Diarrhea type: unspecified type Qualified Code(s): R19.7 - Diarrhea, unspecified (2) Abdominal pain Abdominal location: generalized Qualified Code(s): R10.84 - Generalized abdominal pain
[2020-10-25] MEDS ORDERED: ALUMINUM/MAGNESIUM SUSP 30 ML UDC PO PRN (04:20)
[2020-10-25] MEDS ORDERED: MAGNESIUM HYDROXIDE SUSP 30 ML UDC PO PRN (04:20)
[2020-10-25] MEDS ORDERED: ACETAMINOPHEN 325 MG TAB PO PRN (04:20)
[2020-10-25] MEDS ORDERED: ONDANSETRON 4 MG OD TAB PO PRN (04:28)
[2020-10-25 05:20] LABS: Basophils # (auto) 0.03 K/uL (0-0.2); Basophils % (auto) 0.2 %; Eosinophils # (auto) 0.11 K/uL (0-0.5); Eosinophils % (auto) 0.6 %; Hematocrit (blood only) 39.4 % (42-52); Hemoglobin 12.3 g/dL (14.0-18.0); Immature Granulocytes # (auto) 0.09 K/uL (0.00-0.02); Immature Granulocytes % (auto) 0.5 %; Lymphocytes % (auto) 6.2 %; Mean Corpuscular Hemoglobin 30.1 pg (25-34); Mean Corpuscular Hgb Conc 31.2 g/dL (32-36); Mean Corpuscular Volume 96.3 fL (80-100); Mean Platelet Volume 9.5 fL (7.4-10.4); Monocytes # (auto) 1.88 K/uL (0.11-0.59); Monocytes % (auto) 9.7 %; Neutrophils # (auto) 16.14 K/uL (1.4-6.5); Neutrophils % (auto) 82.8 %; Platelet Count 354 K/uL (130-400); RDW Coefficient of Variation 16.8 % (11.5-14.5); RDW Standard Deviation 59.7 fL (36.4-46.3); Red Blood Count 4.09 M/uL (4.7-6.1); White Blood Count 19.45 K/uL (4.8-10.8)
[2020-10-25 06:11] LABS: Albumin Globulin Ratio 0.5 (0.9-2); Albumin Level 2.7 gm/dl (3.4-5.0); BUN Creatinine Ratio 3.7 (10-20); Bilirubin,Total 0.5 mg/dl (0.2-1); C Reactive Protein 21.9 mg/dl (0-0.29); Calcium 9.7 mg/dl (8.5-10.1); Creatinine Clr Calc Pharmacy 15.4 ml/min; Est GFR (Non-African American) 7.7 ml/min; Globulin 5.1 gm/dl (2.5-4.0); Potassium 4.4 mmol/L (3.5-5.1); Total Protein 7.8 gm/dl (6.4-8.2)
[2020-10-25] MEDS ORDERED: INSULIN ASPART PER UNIT SC SCH (09:00)
--- NOTE | 2020-10-25 09:09 | CT Scan Report ---
CT SCAN OF THE CHEST, ABDOMEN, AND PELVIS WITHOUT IV CONTRAST CLINICAL HISTORY: Hypoxia. Nausea and vomiting. Lower abdominal pain. COMPARISON STUDY: Chest x-ray and abdominal radiograph dated 10/24/2020. Abdominal CT dated 10/23/2020 . TECHNIQUE: Unenhanced CT scan of the chest, abdomen, and pelvis was performed from the thoracic inlet to the proximal femora. Images are reviewed in the axial, sagittal, and coronal planes. IV contrast was not administered as per the referring clinician. Note that the examination was performed in subop timal fashion without oral and IV contrast. A dose lowering technique was utilized adhering to the p rinciples of MARK. CT DOSE: 2447.45 mGy.cm FINDINGS: CHEST: Thyroid: Imaged portions of the thyroid gland are normal in size and attenuation. Thoracic aorta: There is atherosclerotic calcification of the thoracic aorta, which is normal in delmar suzan and demonstrates standard 3-vessel arch anatomy. Heart: The heart is enlarged and without pericardial effusion. The coronary arteries are densely calc ified. Lungs and pleural spaces: There is no airspace consolidation or pleural effusion. The trachea and noreen tral airways are clear. Scarring/atelectasis is noted at the lung bases. There are scattered calcifie d granulomas. A 5 mm right upper lobe pulmonary nodule is seen image 119. A 3 mm right middle lobe pu lmonary nodule is seen on image #124, and a 3 mm left upper lobe pulmonary nodule is seen on image #1 16. A 3 mm right lower lobe pulmonary nodule is seen on image #148. Mediastinum: There is no mediastinal lymphadenopathy. Vielka: Not well assessed without IV contrast. Axillae: There is no axillary lymphadenopathy. Bony thorax: The skeletal structures are osteopenic. No lytic or blastic lesions are identified. ABDOMEN AND PELVIS: Liver: The unenhanced liver is normal in size, contour, and attenuation. There is no intrahepatic guy iary ductal dilatation. A 12 mm left lobe hypodensity on image #59 is unchanged. This likely represen ts a hemangioma but cannot be characterized on today's examination. Gallbladder: Vicariously excreted contrast fills the gallbladder. Spleen: Normal in size and attenuation. Pancreas: The unenhanced pancreas is moderately atrophic and grossly unremarkable. Adrenal glands: Unremarkable. Kidneys: The unenhanced kidneys are atrophic and without hydronephrosis. There are extensive bilatera l renovascular calcifications. No renal calculi are clearly identified. A 10 mm exophytic cyst arises from the left lower pole. Abdominal vasculature: The abdominal aorta is normal in course and caliber noting advanced atheroscle rotic calcification. Bowel: Focal narrowing of the transverse colon on image #113 is unchanged. Submucosal fat deposition throughout the colon is nonspecific but has been described in the setting of chronic inflammation. Th ere is no high-grade bowel obstruction. There are mildly distended and gas-filled loops of proximal j ejunum in the upper abdomen which measure up to 3.4 cm. No transition point is identified. The append ix is well-visualized and normal. Peritoneum: There is no intraperitoneal free air or abdominal ascites. Lymphadenopathy: None. Pelvic viscera: The prostate gland is enlarged and heterogeneous noting median lobe hypertrophy. The bladder is decompressed and not evaluated. Excreted IV contrast is present within the bladder lumen. Skeletal structures: The skeletal structures are osteopenic. There is mild lumbosacral spondylosis. B ilateral pars defects are noted at L5. A large posterior disc bulge is seen at L4-L5. No lytic or brown stic lesions are seen. IMPRESSION: 1. Cardiomegaly with no acute cardiopulmonary abnormality. 2. Scattered pulmonary nodules measure up to 5 mm. These are nonspecific and can be followed as per t he Fleischner criteria. See below. 3. No acute infectious or inflammatory findings are identified in the abdomen or pelvis. 4. Focal narrowing is again seen in the transverse colon. This is nonspecific and may be related to s tricture. An underlying mass lesion is not excluded and follow-up with colonoscopy is recommended. 5. There are mildly distended and gas-filled loops of proximal jejunum. This is a nonspecific finding and may represent mild ileus. Low-grade obstruction is considered less likely and clinical correlati on will be required. Consider follow-up KUB in 1-2 days time for reassessment. 6. Advanced atherosclerotic vascular disease. 7. Additional findings as above. Please refer to below summary of Fleischner criteria recommendations for follow-up of incidental CT n odules (Jeffrey Patten, Guidelines for management of small pulmonary nodules detected on CT scans: A sta tement from the Fleischner Society, Radiology 237: [id number].) SOLID NODULES Solitary nodule size: <6 mm * low risk patients: no follow-up needed * high risk patients: optional CT at 12 months Solitary nodule size: 6-8 mm * low risk patients: follow-up at 6-12 months, then consider further follow-up at 18-24 months * high risk patients: initial follow-up CT at 6-12 months and then at 18-24 months if no change Solitary nodule size: >8 mm * either low or high risk patients - consider follow-up CT at 3 months, and/or CT-PET, and/or biopsy Multiple nodules size: <6 mm * low risk patients: no routine follow-up * high risk patients: optional CT at 12 months Multiple nodules size: 6-8 mm * low risk patients: follow-up at 3-6 months, then consider further follow-up at 18-24 months * high risk patients: follow-up at 3-6 months, then at 18-24 months if no change Multiple nodules size: >8 mm * low risk patients: follow-up at 3-6 months, then consider further follow-up at 18-24 months * high risk patients: follow-up at 3-6 months, then at 18-24 months if no change Note: newly detected indeterminate nodule in persons 35 years of age or older. * low risk patients: minimal or absent history of smoking and/or other known risk factors * high risk patients: history of smoking or of other known risk factors (e.g. first degree relative with lung cancer, or exposure to asbestos, radon, uranium) * if a nodule up to 8 mm is partly solid or is ground glass further follow-up is required after 24 m onths to exclude possible slow growing adenocarcinoma (PRINCE) SUBSOLID NODULES Solitary pure ground-glass nodule * nodule size <6 mm - no CT follow-up required * nodule size >=6 mm - follow-up CT at 6-12 months, then every 2 years until 5 years Solitary part-solid nodule * nodule size <6 mm - no CT follow-up required * nodule size >=6 mm - follow-up CT at 3-6 months. If unchanged, and solid component remains <6 mm, then annual follow-up for 5 years Multiple subsolid nodules * nodule size <6 mm - follow-up CT at 3-6 months, consider further follow-up at 2 and 4 years if sta ble * nodule size >=6 mm - follow-up CT at 3-6 months, subsequent management based on the most suspiciou s nodule(s) ACT 112: Negative or not required by law. Electronically signed by: Geovanny Frye M.D. 10/25/2020 9:07 AM
[2020-10-25] MEDS ORDERED: LAVAGE SOLUTION 4000ML PO SCH (09:30)
--- NOTE | 2020-10-25 09:35 | Gastrointestinal Consultation ---
Date of Consultation October 25, 2020 Assessment & Plan (1) Nausea: EGD tomorrow. If no abnormalities on endoscopy, then would consider gastric emptying study. (2) Diarrhea: C-diff was (-). (3) Abdominal pain: See abnormal CT dx for plan. (4) Abnormal CT of the abdomen: Colonoscopy planned for tomorrow. Slow golytely prep starting now. Antiemetics (has ondansetron on board). Will hold the Plavix until colonoscopy. Pt tells me that he last took this on Saturday (to nauseated to take his meds). (5) Leukocytosis: C-diff and GI path w/o cause of leukocytosis. Consider blood cx, w/u for infection from other source. Consider empiric antibiotics. Supervising Physician Co-Signing Physician Notes I saw and evaluated the patient this afternoon. He presented with nausea and vomiting and was found to have a suspicious appearing stricture within his colon on CT scan. The patient does have a history of colonic polyps and last had a colonoscopy approximately 5 to 6 years ago. The patient is presently on dialysis for renal failure and undergoing evaluation for renal transplantation. The patient is passing some stool and flatus and due for dialysis tomorrow. Physical examination Patient fatigued looking, slightly overweight, no scleral icterus Mild abdominal distention without rebound or peritoneal signs Impression: Patient presents with a suspicious appearing region in his transverse colon on CT scan. As the CT is without IV contrast it does have somewhat limited value. Would recommend correlation with colonoscopy to be scheduled tomorrow pending the patient's renal function and dialysis treatment. As the patient is presently having bowel movements and passage of flatus a bowel preparation can be given. Plan Colonoscopy scheduled for tomorrow Colyte bowel preparation to be written Please call with any questions or concerns History of Present Illness Reason for Consultation: intractable n/v, gastroparesis? Requesting Physician: Dr. Wynn Attending Physician: Andi Hemphill MD History of Present Illness Mr. Jayce Terry is a 55 yr old male pt of Radha Alan NP with a hx of ESRD on dialysis, DM 1.5 on insulin, CAD, CHF, HTN who presented to the ED on 10/24 for abdominal pain, nausea, vomiting diarrhea. GI is consulted for these issues. 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 He reports that the vomiting began intermittently, occurring every 1-2 days a few months ago, typically consisting of very acidic liquid though occasionally throwing up the food from his most recent meal. Moderately severe central lower abdomen cramping pain and well as persistent nausea and diarrhea began about 1 1/2 weeks ago. He has had a poor po intake. His most recent formed BM was last Saturday. He has had up to 10 liquid BMs/day. He has had very poor po intake and has lost about 10lbs this week. His most recent emesis was 3 days ago. He denies any other symptoms of illness such as sore throat, joint pain, body aches. On arrival CTAP w/o contrast suggested a transverse colon narrowing and mild jejunal distention. Allergies Allergy/AdvReac Type Severity Reaction Status Date / Time No Known Allergies Allergy Unverified 10/24/20 23:09 Home Medications Medication Instructions Recorded Confirmed Type aspirin 81 mg tablet,delayed 81 mg PO DAILY 11/18/18 10/24/20 History release (Adult Aspirin Regimen) calcitriol 0.25 mcg capsule 0.25 mcg PO Q OTHER DAY cap 11/18/18 10/24/20 History cinacalcet 90 mg tablet (Sensipar) 90 mg PO DAILY 03/24/19 10/24/20 History furosemide 80 mg tablet (Lasix) 80 mg PO BID #180 tab 05/25/19 10/24/20 Rx labetalol 100 mg tablet 100 mg PO BID #180 tab 12/28/19 10/24/20 Rx insulin aspart U-100 100 unit/mL 70 unit CONTINUOUS SUBCUTANEOUS 01/11/20 10/24/20 Rx subcutaneous solution (Novolog INFUSION DAILY 90 Days #63 ml U-100 Insulin aspart) rosuvastatin 10 mg tablet 10 mg PO DAILY #90 tab 08/19/20 10/24/20 Rx clopidogrel 75 mg tablet 75 mg PO DAILY 10/23/20 10/24/20 History ondansetron HCl 4 mg tablet 4 mg PO Q6H PRN #10 tab 10/23/20 10/24/20 Rx (Zofran) sevelamer carbonate 800 mg tablet 2,400 mg PO ACHS 10/23/20 10/24/20 History Patient History Medical History Acquired claw toe of left foot Acquired claw toe of right foot Anemia CAD (coronary artery disease) CAD (coronary atherosclerotic disease) CHF (congestive heart failure) Decreased sensation of foot Diabetes 1.5, 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, uncontrolled Diabetic neuropathy associated with secondary diabetes mellitus ESRD (end stage renal disease) on dialysis Foot ulcer, left Foot ulcer, right Hallux valgus (acquired), right foot HTN (hypertension) HTN, goal to be determined Hyperlipidemia Insulin pump in place Surgical History H/O eye surgery History of cataract surgery History of thoracic surgery S/P arteriovenous (AV) fistula creation S/P coronary artery stent placement Status post right foot surgery Family History Mother History of hip replacement Carpal tunnel syndrome Father Myocardial infarction Cardiac arrest History of hernia repair Stroke Hypertension Dyslipidemia A-fib Brother Hypertension Social History Smoking Status: Never smoker Second Hand Exposure: No; Do You Dip or Chew Tobacco: No; Tobacco Cessation Education Requested by Patient: No Hx Alcohol Use: Yes Alcohol type: beer Hx Substance Use: No Preferred Language: Citizen Of [place] Communication Ability: Effective Visual Impairment: Limited Hearing Ability: Normal Utilization Management Rn Required: No Beliefs That Will Affect Care: None marital status: Current Living Situation: Spouse current occupational status: retired and disabled Other Information That Helps Us Care for You: No Feels Safe at Home: Yes Safety Concerns: Feels Safe At This Time Assistive Devices: Cane Review of Systems Review of Systems: ROS: Gen: + weakness, + chills, + weight loss; no fevers, no dizziness Eyes: No eye redness, or pain, no recent vision changes Resp: No SOB, no cough Cardio: No palpitations/irregular beats, no chest pain GI: + see HPI, otherwise (-) : Denies pain on urination Skin: No jaundice, itching or new rashes Physical Exam Physical Exam: Initially sitting up in bed. AAO, very cooperative, good eye contact. Constitutional: WD/WN, vitals as above Eyes: PERRL, conjunctivae normal, anicteric sclerae ENMT: external ear and nose normal, oropharynx normal Neck: trachea midline, no thyromegaly Respiratory: normal respiratory effort, lungs clear to auscultation Cardiovascular: RRR, no murmur, no edema RRR, no murmur; trace bilat lower leg edema Gastrointestinal (Abdomen): mild suprapubic tenderness with firm palpation; no distention; BS are present throughout Skin: mid lower leg redness/dull skin, otherwise normal w/o any ulcers, rashes or jaundice Neurologic: PERRL, EOMI, accommodation nl, no face palsy, no dysarthria Psychiatric: A+Ox3, euthymic affect Lymphatic: no cervical or axillary lymphadenopathy Results & Data ([facility]) Vital Signs (Past 12 Hours) Vital Signs Temp Pulse Pulse Resp BP BP Pulse Ox 10/25/20 08:54 36.6 C 66 16 112/67 97 10/25/20 04:10 36.7 C 70 16 124/70 98 10/25/20 04:05 36.7 C 70 16 124/70 98 10/25/20 03:00 62 22 127/56 L 99 10/25/20 02:30 66 16 136/62 92 10/25/20 02:00 67 17 134/62 75 L 10/25/20 01:30 66 20 145/74 H 92 10/25/20 01:00 68 26 H 138/74 93 10/25/20 00:30 77 25 H 128/61 100 10/25/20 00:00 83 108/55 L 81 L 10/24/20 23:30 70 27 H 127/64 96 10/24/20 22:29 78 24 110/60 91 10/24/20 22:10 72 18 10/24/20 22:00 70 21 10/24/20 21:54 70 21 Laboratory Results WBC 19, Hb 12.3, Hct 39.4, Plts 354, Na 133, K 4.4, Cl 96, CO2 31, BUN 26, Cr 7.2, glucose 150 C-diff (-) on 10/23/20. Diagnostic Findings CTAP non contrast (10/25/20): 1. Cardiomegaly with no acute cardiopulmonary abnormality. 2. Scattered pulmonary nodules measure up to 5 mm. These are nonspecific and can be followed as per the Fleischner criteria. See below. 3. No acute infectious or inflammatory findings are identified in the abdomen or pelvis. 4. Focal narrowing is again seen in the transverse colon. This is nonspecific and may be related to stricture. An underlying mass lesion is not excluded and follow-up with colonoscopy is recommended. 5. There are mildly distended and gas-filled loops of proximal jejunum. This is a nonspecific finding and may represent mild ileus. Low-grade obstruction is considered less likely and clinical correlation will be required. Consider follow-up KUB in 1-2 days time for reassessment. 6. Advanced atherosclerotic vascular disease. CTAP with IV contrast on 10/23/20: 1. There appears to be focal thickening within the proximal transverse colon measuring 4 cm in length. This raises the possibility of a focal colitis versus a colonic mass. Follow-up nonemergent colonoscopy recommended for further evalua tion. 2. Submucosal fat deposition within the proximal colon suggestive of chronic inflammatory change. 3. Normal appendix. 4. Fluid-filled nondilated loops of large or small bowel seen throughout the abdomen. This can be seen in the setting of a diarrheal illness/gastroenteritis. 5. Moderate bilateral renal atrophy. No hydronephrosis. (1) Diarrhea Diarrhea type: unspecified type Qualified Code(s): R19.7 - Diarrhea, unspecified (2) Abdominal pain Abdominal location: generalized Qualified Code(s): R10.84 - Generalized abdominal pain
[2020-10-25] MEDS: SEVELAMER HCL 800 MG TABLET PO SCH ×5 (09:41→20:45)
[2020-10-25] MEDS: FUROSEMIDE 80 MG TAB PO SCH ×2 (09:42→17:53)
[2020-10-25] MEDS: ASPIRIN 81 MG ECTAB PO SCH (09:42)
[2020-10-25] MEDS: CLOPIDOGREL BISULFATE 75 MG TAB PO SCH (09:43)
[2020-10-25] MEDS: ROSUVASTATIN CALCIUM 10 MG TAB PO SCH (09:43)
[2020-10-25] MEDS: LABETALOL HCL 100 MG TAB PO SCH ×2 (09:43→20:44)
--- NOTE | 2020-10-25 09:43 | XRay Report ---
PA CHEST WITH ABDOMINAL SERIES CLINICAL HISTORY: Generalized abdominal pain. FINDINGS: A PA chest radiograph is compared to study dated 08/31/2013. The heart is enlarged noting atherosclero tic calcification of the thoracic aorta. The pulmonary vasculature is noncongested. A coronary artery stent is suggested. Chronic interstitial thickening is similar to previous. There is bibasilar scarr ing/atelectasis. No airspace consolidation or large pleural effusion is identified. No pneumothorax i s seen. The skeletal structures are osteopenic. The bony thorax is grossly intact. Supine and erect abdominal radiographs are correlated with abdominal CT dated 10/23/2020. There is a n onobstructed abdominal bowel gas pattern. No evidence of intraperitoneal free air is seen. There are no abnormal abdominal calcifications. There is advanced atherosclerotic calcification of the abdomina l aorta at its major branches. Vascular calcifications are also seen in the pelvis. The lumbosacral s pine and bony pelvis appear intact. There is mild lumbosacral spondylosis. IMPRESSION: 1. Cardiomegaly with no active disease in the chest. 2. Nonobstructed abdominal bowel gas pattern. ACT 112: Negative or not required by law. Electronically signed by: Geovanny Frye M.D. 10/25/2020 9:42 AM
[2020-10-25] MEDS ORDERED: PHARMACY GLYCEMIC MGMT CONSULT PRN (09:53)
[2020-10-25] MEDS ORDERED: CARBOHYDRATES FOR HYPOGLYCEMIA PO PRN (10:00)
[2020-10-25] MEDS ORDERED: INSULIN ASPART 100 UNITS/ML VIAL SC PRN (10:00)
[2020-10-25] MEDS ORDERED: GLUCAGON FOR INJ 1 MG VIAL SQ PRN (10:00)
[2020-10-25] MEDS ORDERED: GLUCOSE 10 TABS/TUBE PO PRN (10:00)
[2020-10-25] MEDS ORDERED: DEXTROSE 50% 50 ML SYRINGE IV PRN (10:00)
[2020-10-25] MEDS ORDERED: GLUCOSE 40% GEL 15 GM TUBE PO PRN (10:00)
[2020-10-25] MEDS: CINACALCET HCL 90 MG TAB PO SCH (11:37)
--- NOTE | 2020-10-25 13:11 | Nephrology Consultation ---
Date of Consultation October 25, 2020 Assessment & Plan (1) ESRD (end stage renal disease): HD MWF. Rx: 4 hours 200 optiflux, 450/800, 2K. AVF has been functioning well. EDW 120 kg. Jayce left HD at 117 kg following his last treatment. Tolerating HD well. Will plan for HD tomorrow per MWF schedule coordinated with colonoscopy. Medications appropriate for kidney dysfunction. BP and volume status acceptable. Metabolic profile normal. Calcitriol for sPTH. Sevelamer QA while taking PO. (2) Abnormal CT of the abdomen: Colonoscopy planned for tomorrow. Golytely prep per GI. GI consult reviewed. (3) Abdominal pain, lower: Symptoms persist. (4) Diabetes type 1, controlled: History of Present Illness Reason for Consultation: ESRD on HD Requesting Physician: Andi Hemphill MD Attending Physician: Andi Hemphill MD History of Present Illness Mr. Jayce Terry is a 55-year-old male with ESRD due to presumed diabetic nephropathy. He is on maintenance HD at [facility]. Jayce was a patient of Dr. Parham but recently transitioned over to my care. He is in the process of being evaluated for kidney transplant. Medical history notable for obesity, DMI, hypertension, calcaneal fracture, presumed SHAHEEN untreated, and CAD. Jayce presented to the ER on Saturday with lower GI discomfort and significant abdominal bloating. He has had ~1.5 weeks of symptoms including poor appetite, intermittent vomiting and watery diarrhea. He has experienced persistent lower abdominal discomfort. He denies melena or hematochezia. Oral intake has been poor. Jayce was discharged home and completed his outpatient HD treatment on Saturday without complications. Net UF 2.6 L. Jayce left dialysis ~3 kg below his EDW. He has been losing weight for several weeks. Initially, weight loss was intentional but more recently unintentional weight loss has persisted. GI evaluation complcated today. CT reviewed. Scheduled for colonoscopy tomorrow. Allergies Allergy/AdvReac Type Severity Reaction Status Date / Time No Known Allergies Allergy Unverified 10/24/20 23:09 Home Medications Medication Instructions Recorded Confirmed Type aspirin 81 mg tablet,delayed 81 mg PO DAILY 11/18/18 10/24/20 History release (Adult Aspirin Regimen) calcitriol 0.25 mcg capsule 0.25 mcg PO Q OTHER DAY cap 11/18/18 10/24/20 History cinacalcet 90 mg tablet (Sensipar) 90 mg PO DAILY 03/24/19 10/24/20 History furosemide 80 mg tablet (Lasix) 80 mg PO BID #180 tab 05/25/19 10/24/20 Rx labetalol 100 mg tablet 100 mg PO BID #180 tab 12/28/19 10/24/20 Rx insulin aspart U-100 100 unit/mL 70 unit CONTINUOUS SUBCUTANEOUS 01/11/20 10/24/20 Rx subcutaneous solution (Novolog INFUSION DAILY 90 Days #63 ml U-100 Insulin aspart) rosuvastatin 10 mg tablet 10 mg PO DAILY #90 tab 08/19/20 10/24/20 Rx clopidogrel 75 mg tablet 75 mg PO DAILY 10/23/20 10/24/20 History ondansetron HCl 4 mg tablet 4 mg PO Q6H PRN #10 tab 10/23/20 10/24/20 Rx (Zofran) sevelamer carbonate 800 mg tablet 2,400 mg PO ACHS 10/23/20 10/24/20 History Patient History Medical History Acquired claw toe of left foot Acquired claw toe of right foot Anemia CAD (coronary artery disease) CAD (coronary atherosclerotic disease) CHF (congestive heart failure) Decreased sensation of foot Diabetes 1.5, 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, uncontrolled Diabetic neuropathy associated with secondary diabetes mellitus ESRD (end stage renal disease) on dialysis Foot ulcer, left Foot ulcer, right Hallux valgus (acquired), right foot HTN (hypertension) HTN, goal to be determined Hyperlipidemia Insulin pump in place Surgical History H/O eye surgery History of cataract surgery History of thoracic surgery S/P arteriovenous (AV) fistula creation S/P coronary artery stent placement Status post right foot surgery Family History Mother History of hip replacement Carpal tunnel syndrome Father Myocardial infarction Cardiac arrest History of hernia repair Stroke Hypertension Dyslipidemia A-fib Brother Hypertension Social History Smoking Status: Never smoker Second Hand Exposure: No; Do You Dip or Chew Tobacco: No; Tobacco Cessation Education Requested by Patient: No Hx Alcohol Use: Yes Alcohol type: beer Hx Substance Use: No Preferred Language: [place] Communication Ability: Effective Visual Impairment: Limited Hearing Ability: Normal Resort Manager Required: No Beliefs That Will Affect Care: None marital status: Current Living Situation: Spouse current occupational status: retired and disabled Other Information That Helps Us Care for You: No Feels Safe at Home: Yes Safety Concerns: Feels Safe At This Time Assistive Devices: Cane Review of Systems Review of Systems: All systems reviewed & are unremarkable except as noted in HPI & below Physical Exam Constitutional: well developed; no acute distress Eyes: no scleral abnormality and no corneal abnormality ENMT: Mouth: no oral mucosal abnormality and oral mucous membranes not dry Neck: normal visual inspection and trachea midline Respiratory: normal respiratory effort Auscultation: lungs clear to auscultation bilaterally Cardiovascular: Rate/Rhythm: regular rate Heart Sounds: normal S1, normal S2 and + murmur Extremities: + AV fistula; no edema Musculoskeletal: Extremities: no cyanosis and no clubbing Skin: normal turgor; no lesions Neurologic: Motor/Sensory: no tremor and no asterixis Psychiatric: Orientation: alert and oriented x 3 Results & Data ([facility]) Vital Signs (Past 12 Hours) Vital Signs Temp Pulse Pulse Resp BP BP Pulse Ox 10/25/20 08:54 36.6 C 66 16 112/67 97 10/25/20 04:10 36.7 C 70 16 124/70 98 10/25/20 04:05 36.7 C 70 16 124/70 98 10/25/20 03:00 62 22 127/56 L 99 10/25/20 02:30 66 16 136/62 92 10/25/20 02:00 67 17 134/62 75 L 10/25/20 01:30 66 20 145/74 H 92 Laboratory Results Laboratory Results - last 24 hr 10/24/20 10/24/20 10/24/20 21:35 21:35 23:13 WBC 16.98 H RBC 4.04 L Hgb 12.3 L Hct 38.9 L MCV 96.3 MCH 30.4 MCHC 31.6 L RDW Std Deviation 58.9 H RDW Coeff of Tl 16.7 H Plt Count 353 MPV 9.4 Immature Gran % (Auto) 0.7 Neut % (Auto) 82.3 Lymph % (Auto) 5.3 [place] % (Auto) 11.2 Eos % (Auto) 0.4 Baso % (Auto) 0.1 Neut # (Auto) 13.97 H Lymph # (Auto) 0.90 L [place] # (Auto) 1.91 H Eos # (Auto) 0.07 Baso # (Auto) 0.01 Immature Gran # (Auto) 0.12 H Sodium 134 L Potassium 4.1 Chloride 95 L Carbon Dioxide 30 Anion Gap 9.0 BUN 22 H Creatinine 6.74 H* D Est Cr Clr Drug Dosing Not Reportable Est GFR ( Amer) 9.7 Est GFR (Non-Af Amer) 8.4 BUN/Creatinine Ratio 3.3 L Glucose 159 H POC Glucose Calcium 9.9 Total Bilirubin 0.5 AST 24 ALT 13 Alkaline Phosphatase 91 C-Reactive Protein Total Protein 7.5 Albumin 2.7 L Globulin 4.8 H Albumin/Globulin Ratio 0.6 L Lipase 28 L Nasal Screen MRSA (PCR) COVID-19 Eval Order Covid19 IDNow [facility] SARS-CoV-2, RNA, NAAT 10/24/20 10/25/20 10/25/20 23:13 00:33 05:07 WBC RBC Hgb Hct MCV MCH MCHC RDW Std Deviation RDW Coeff of Tl Plt Count MPV Immature Gran % (Auto) Neut % (Auto) Lymph % (Auto) [place] % (Auto) Eos % (Auto) Baso % (Auto) Neut # (Auto) Lymph # (Auto) [place] # (Auto) Eos # (Auto) Baso # (Auto) Immature Gran # (Auto) Sodium 133 L Potassium 4.4 Chloride 96 L Carbon Dioxide 31 Anion Gap 6.0 BUN 26 H Creatinine 7.22 H* D Est Cr Clr Drug Dosing 15.4 Est GFR ( Amer) 9.0 Est GFR (Non-Af Amer) 7.7 BUN/Creatinine Ratio 3.7 L Glucose 150 H POC Glucose 193 H Calcium 9.7 Total Bilirubin 0.5 AST 21 ALT 11 L Alkaline Phosphatase 98 C-Reactive Protein 21.90 H Total Protein 7.8 Albumin 2.7 L Globulin 5.1 H Albumin/Globulin Ratio 0.5 L Lipase Nasal Screen MRSA (PCR) COVID-19 Eval Order SARS-CoV-2, RNA, NAAT NEGATIVE 10/25/20 10/25/20 10/25/20 05:07 06:16 08:12 WBC 19.45 H RBC 4.09 L Hgb 12.3 L Hct 39.4 L MCV 96.3 MCH 30.1 MCHC 31.2 L RDW Std Deviation 59.7 H RDW Coeff of Tl 16.8 H Plt Count 354 MPV 9.5 Immature Gran % (Auto) 0.5 Neut % (Auto) 82.8 Lymph % (Auto) 6.2 [place] % (Auto) 9.7 Eos % (Auto) 0.6 Baso % (Auto) 0.2 Neut # (Auto) 16.14 H Lymph # (Auto) 1.20 [place] # (Auto) 1.88 H Eos # (Auto) 0.11 Baso # (Auto) 0.03 Immature Gran # (Auto) 0.09 H Sodium Potassium Chloride Carbon Dioxide Anion Gap BUN Creatinine Est Cr Clr Drug Dosing Est GFR ( Amer) Est GFR (Non-Af Amer) BUN/Creatinine Ratio Glucose POC Glucose 101 H Calcium Total Bilirubin AST ALT Alkaline Phosphatase C-Reactive Protein Total Protein Albumin Globulin Albumin/Globulin Ratio Lipase Nasal Screen MRSA (PCR) Negative COVID-19 Eval Order SARS-CoV-2, RNA, NAAT PG Care Time/CCT Total # of Minutes Spent Total Time Spent with Patient: Total time spent is greater than 50% in coordination of care (as documented) at patient's floor/unit and/or counseling patient: Coding Level of Care Code 40560 Inpt Consult Level 4 Diagnoses ESRD (end stage renal disease) N18.[address] of the abdomen R93.5 Abdominal pain, lower R10.30 Diabetes type 1, controlled E10.9
[2020-10-25] MEDS: NovoLOG INSULIN PUMP SCH ×3 (13:12→20:45)
--- NOTE | 2020-10-25 14:12 | Pharmacy Report ---
Pharmacy Glycemic Short Note 2 - Date of Service October 25, 2020 - Glycemic Short BSG Results (Last 24 hours): 10/24/20 10/25/20 10/25/20 21:35 00:33 05:07 Glucose 159 H 150 H POC Glucose 193 H 10/25/20 08:12 Glucose POC Glucose 101 H OUTPATIENT ANTIDIABETIC REGIMEN: * Novolog Insulin Pump * Basal: * 00:00- 1.45 units/hr * 07:30- 1.35 units/hr * 12:00- 1.45 units/hr * ICR: 6.3 * SF: 28 * ESRD will not get new A1c ASSESSMENT: * Patient admitted with intractable nausea, recent weight loss, plans for colonoscopy, HD tomorrow per schedule * Patient continues on insulin pump, per Managing Manager patient currently has 59 units in pump- contacting to bring in supplies to change, will need to transition to SQ basal/bolus if unable to obtain new supplies before change * BSGs 101-193 mg/dL continue to monitor, currently on clears PLAN FOR INPATIENT GLYCEMIC CONTROL: * Patient managing home insulin pump
[2020-10-25] MEDS: HYDROmorphone INJ 0.5 MG/0.5 ML SYR IV PRN ×2 (15:41→23:25)
[2020-10-25 17:12] LABS: Hepatitis B Surface Ab Quant 55.91 mIU/mL (>or=10mIU/mL Immune); Hepatitis B Surface Antibody Immune
--- NOTE | 2020-10-25 17:19 | Communication Note ---
Date of Service: October 25, 2020 Patient seen; chart reviewed; presentation with primarily GI symptomatologylot of nausea, abdominal pain, diarrhea CT scan abdomen:1. Cardiomegaly with no acute cardiopulmonary abnormality. 2. Scattered pulmonary nodules measure up to 5 mm. These are nonspecific and can be followed as per the Fleischner criteria. See below. 3. No acute infectious or inflammatory findings are identified in the abdomen or pelvis. 4. Focal narrowing is again seen in the transverse colon. This is nonspecific and may be related to stricture. An underlying mass lesion is not excluded and follow-up with colonoscopy is recommended. 5. There are mildly distended and gas-filled loops of proximal jejunum. This is a nonspecific finding and may represent mild ileus. Low-grade obstruction is considered less likely and clinical correlation will be required. Consider follow-up KUB in 1-2 days time for reassessment. 6. Advanced atherosclerotic vascular disease. GI input noted and appreciatednoted plan for upper and lower endoscopy tomorrow Abdomen nonacutelow-dose hydromorphone for pain Noted leukocytosis but no fever, C. difficile negative, stool studies no pathogen detected-improving; at present inclined to follow
[2020-10-25 17:23] LABS: Hepatitis B Surf Ag Rflx Conf Neg (Neg)
--- NOTE | 2020-10-25 19:56 | Billing Data ---
Date of Service October 25, 2020 Coding Level of Care Code 49886 Initial Inpt Care Lvl 3
[2020-10-26] MEDS ORDERED: Nursing to Pharmacy Communication SCH ×2 (03:45→23:00)
[2020-10-26] MEDS: NovoLOG INSULIN PUMP SCH ×4 (05:52→23:56)
--- NOTE | 2020-10-26 08:00 | Hospitalist Progress Note ---
Date of Service October 26, 2020 Assessment & Plan (1) Abdominal pain: Plan: 55 yo M with Dm1, HFrEF (40%), HTN, HLD, CAD admitted for workup of worsening abd pain/N/V and new hypoxia. 1. Abdominal Pain/N/V/Diarrhea - CT abd showing nonspecific findings such as focal narrowing transverse colon (often spasm) some dilated bowel loopsupper and lower endoscopy today Addendum: Colonoscopysevere ischemic colitisGI recommended 2 weeks Flagyl plus Cipro to prevent transmigration of bacteria EGD 2. ESRD - MWF dialysis - nephro consult - cont sevelamer, cinacalcet, calcitriol 3.DM1 - insulin pump in place - pharmacy glycemic consult 4. HTN - Pressures acceptable; At discharge consider switch to metoprolol succinateCan even be done as outpatient 5. CAD-No current angina; follow clinically - cont statin, aspirin, plavix 6. 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% with grade 2 diastolic dysfunctionclinically well compensated; follow Present on admission dvt ppx:SCDs at present (2) Diarrhea: Plan: See above (3) Insulin pump in place: Plan: Sugars acceptable; pharmacy glycemic consult in place (4) HTN (hypertension): Plan: As above (5) CAD (coronary artery disease): Plan: As above (6) ESRD (end stage renal disease): Plan: Continue Saturday dialysis (7) Congestive heart failure: Plan: Present on admission, chronic combined systolic and diastolicwell compensated; Follow clinically and as above; volume removal with dialysis Admission and Anticipated Discharge Date Admission Date: October 25, 2020 Subjective Follow-up of presentation of nausea, vomiting, abdominal paindoing better; endoscopy today Physical Exam Physical Exam: Constitutional and general: No acute distress, looks biologic age Head and face: No puffiness, atraumatic Eyes: No scleral icterus, extraocular movements normal Neck: Supple, no JVD Musculoskeletal: No acute joint swelling, no bony abnormalities Skin/dermatologic/integument: No rash, no purpura Hematologic and lymphatic: pallor +-Mild, no petechia Gastrointestinal/abdomen: Mildly distended, soft, nonacute Neurologic: Cranial nerves intact, nonfocal Psychiatry: Awake, alert, pleasant, communicative Cardiovascular: Heart rhythm regular, no rub, ESM at base soft, no gallop Respiratory: Chest movements equal, no use of accessory muscles, no adventitious sounds Extremities: No significant edema, no cyanosis Results & Data Results & Data ([facility]) Vital Signs (Past 12 Hours) Vital Signs Temp Pulse Resp BP BP Pulse Ox 10/26/20 07:15 36.8 C 71 22 105/64 93 10/25/20 22:40 37.3 C 73 24 111/63 93 10/25/20 20:43 70 113/61 Laboratory Results Laboratory Results - last 24 hr 10/25/20 10/25/20 10/25/20 08:12 15:50 20:39 POC Glucose 101 H 118 H Stool Comments Hep Bs Antigen Neg Hep Bs Antibody Immune Hep Bs Antibody, Quant 55.91 10/25/20 10/26/20 Unknown 05:46 POC Glucose 111 H Stool Comments Pending Hep Bs Antigen Hep Bs Antibody Hep Bs Antibody, Quant Diagnostic Findings Chest/Abdomen X-ray 10/24/20 21:19 PA CHEST WITH ABDOMINAL SERIES CLINICAL HISTORY: Generalized abdominal pain. FINDINGS: A PA chest radiograph is compared to study dated 08/31/2013. The heart is enlarged noting atherosclerotic calcification of the thoracic aorta. The pulmonary vasculature is noncongested. A coronary artery stent is suggested. Chronic interstitial thickening is similar to previous. There is bibasilar scarring/atelectasis. No airspace consolidation or large pleural effusion is i dentified. No pneumothorax is seen. The skeletal structures are osteopenic. The bony thorax is grossly intact. Supine and erect abdominal radiographs are correlated with abdominal CT dated 10/23/2020. There is a nonobstructed abdominal bowel gas pattern. No evidence of intraperitoneal free air is seen. There are no abnormal abdominal calcifications. There is advanced atherosclerotic calcification of the abdominal aorta at its major branches. Vascular calcifications are also seen in the pelvis. The lumbosacral spine and bony pelvis appear intact. There is mild lumbosacral spondylosis. IMPRESSION: 1. Cardiomegaly with no active disease in the chest. 2. Nonobstructed abdominal bowel gas pattern. ACT 112: Negative or not required by law. Electronically signed by: Geovanny Frye M.D. 10/25/2020 9:42 AM Abdomen/Pelvis CT 10/25/20 02:41 CT SCAN OF THE CHEST, ABDOMEN, AND PELVIS WITHOUT IV CONTRAST CLINICAL HISTORY: Hypoxia. Nausea and vomiting. Lower abdominal pain. COMPARISON STUDY: Chest x-ray and abdominal radiograph dated 10/24/2020. Abdominal CT dated 10/23/2020. TECHNIQUE: Unenhanced CT scan of the chest, abdomen, and pelvis was performed from the thoracic inlet to the proximal femora. Images are reviewed in the axial, sagittal, and coronal planes. IV contrast was not administered as per the referring clinician. Note that the examination was performed in suboptimal fashion without oral and IV contrast. A dose lowering technique was utilized adhering to the principles of ALARA. CT DOSE: 2447.45 mGy.cm FINDINGS: CHEST: Thyroid: Imaged portions of the thyroid gland are normal in size and attenuation. Thoracic aorta: There is atherosclerotic calcification of the thoracic aorta, which is normal in caliber and demonstrates standard 3-vessel arch anatomy. Heart: The heart is enlarged and without pericardial effusion. The coronary arteries are densely calcified. Lungs and pleural spaces: There is no airspace consolidation or pleural effusion. The trachea and central airways are clear. Scarring/atelectasis is noted at the lung bases. There are scattered calcified granulomas. A 5 mm right upper lobe pulmonary nodule is seen image 119. A 3 mm right middle lobe pulmonary nodule is seen on image #124, and a 3 mm left upper lobe pulmonary nodule is seen on image #116. A 3 mm right lower lobe pulmonary nodule is seen on image #148. Mediastinum: There is no mediastinal lymphadenopathy. Vielka: Not well assessed without IV contrast. Axillae: There is no axillary lymphadenopathy. Bony thorax: The skeletal structures are osteopenic. No lytic or blastic lesions are identified. ABDOMEN AND PELVIS: Liver: The unenhanced liver is normal in size, contour, and attenuation. There is no intrahepatic biliary ductal dilatation. A 12 mm left lobe hypodensity on image #59 is unchanged. This likely represents a hemangioma but cannot be characterized on today's examination. Gallbladder: Vicariously excreted contrast fills the gallbladder. Spleen: Normal in size and attenuation. Pancreas: The unenhanced pancreas is moderately atrophic and grossly unremarkable. Adrenal glands: Unremarkable. Kidneys: The unenhanced kidneys are atrophic and without hydronephrosis. There are extensive bilateral renovascular calcifications. No renal calculi are clearly identified. A 10 mm exophytic cyst arises from the left lower pole. Abdominal vasculature: The abdominal aorta is normal in course and caliber noting advanced atherosclerotic calcification. Bowel: Focal narrowing of the transverse colon on image #113 is unchanged. Submucosal fat deposition throughout the colon is nonspecific but has been described in the setting of chronic inflammation. There is no high-grade bowel obstruction. There are mildly distended and gas-filled loops of proximal jejunum in the upper abdomen which measure up to 3.4 cm. No transition point is identified. The appendix is well-visualized and normal. Peritoneum: There is no intraperitoneal free air or abdominal ascites. Lymphadenopathy: None. Pelvic viscera: The prostate gland is enlarged and heterogeneous noting median lobe hypertrophy. The bladder is decompressed and not evaluated. Excreted IV contrast is present within the bladder lumen. Skeletal structures: The skeletal structures are osteopenic. There is mild lumbosacral spondylosis. Bilateral pars defects are noted at L5. A large posterior disc bulge is seen at L4-L5. No lytic or blastic lesions are seen. IMPRESSION: 1. Cardiomegaly with no acute cardiopulmonary abnormality. 2. Scattered pulmonary nodules measure up to 5 mm. These are nonspecific and can be followed as per the Fleischner criteria. See below. 3. No acute infectious or inflammatory findings are identified in the abdomen or pelvis. 4. Focal narrowing is again seen in the transverse colon. This is nonspecific and may be related to stricture. An underlying mass lesion is not excluded and follow-up with colonoscopy is recommended. 5. There are mildly distended and gas-filled loops of proximal jejunum. This is a nonspecific finding and may represent mild ileus. Low-grade obstruction is considered less likely and clinical correlation will be required. Consider follow-up KUB in 1-2 days time for reassessment. 6. Advanced atherosclerotic vascular disease. 7. Additional findings as above. Please refer to below summary of Fleischner criteria recommendations for follow- up of incidental CT nodules (Jeffrey Patten, Guidelines for management of small pulmonary nodules detected on CT scans: A statement from the Fleischner Society, Radiology 237: [id number].) SOLID NODULES Solitary nodule size: <6 mm * low risk patients: no follow-up needed * high risk patients: optional CT at 12 months Solitary nodule size: 6-8 mm * low risk patients: follow-up at 6-12 months, then consider further follow-up at 18-24 months * high risk patients: initial follow-up CT at 6-12 months and then at 18-24 months if no change Solitary nodule size: >8 mm * either low or high risk patients - consider follow-up CT at 3 months, and/or CT-PET, and/or biopsy Multiple nodules size: <6 mm * low risk patients: no routine follow-up * high risk patients: optional CT at 12 months Multiple nodules size: 6-8 mm * low risk patients: follow-up at 3-6 months, then consider further follow-up at 18-24 months * high risk patients: follow-up at 3-6 months, then at 18-24 months if no change Multiple nodules size: >8 mm * low risk patients: follow-up at 3-6 months, then consider further follow-up at 18-24 months * high risk patients: follow-up at 3-6 months, then at 18-24 months if no change Note: newly detected indeterminate nodule in persons 35 years of age or older. * low risk patients: minimal or absent history of smoking and/or other known risk factors * high risk patients: history of smoking or of other known risk factors (e.g. first degree relative with lung cancer, or exposure to asbestos, radon, uranium) * if a nodule up to 8 mm is partly solid or is ground glass further follow-up is required after 24 months to exclude possible slow growing adenocarcinoma (PRINCE) SUBSOLID NODULES Solitary pure ground-glass nodule * nodule size <6 mm - no CT follow-up required * nodule size >=6 mm - follow-up CT at 6-12 months, then every 2 years until 5 years Solitary part-solid nodule * nodule size <6 mm - no CT follow-up required * nodule size >=6 mm - follow-up CT at 3-6 months. If unchanged, and solid component remains <6 mm, then annual follow-up for 5 years Multiple subsolid nodules * nodule size <6 mm - follow-up CT at 3-6 months, consider further follow-up at 2 and 4 years if stable * nodule size >=6 mm - follow-up CT at 3-6 months, subsequent management based on the most suspicious nodule(s) ACT 112: Negative or not required by law. Electronically signed by: Geovanny Frye M.D. 10/25/2020 9:[address] 10/25/20 02:43 CT SCAN OF THE CHEST, ABDOMEN, AND PELVIS WITHOUT IV CONTRAST CLINICAL HISTORY: Hypoxia. Nausea and vomiting. Lower abdominal pain. COMPARISON STUDY: Chest x-ray and abdominal radiograph dated 10/24/2020. Abdominal CT dated 10/23/2020. TECHNIQUE: Unenhanced CT scan of the chest, abdomen, and pelvis was performed from the thoracic inlet to the proximal femora. Images are reviewed in the axial, sagittal, and coronal planes. IV contrast was not administered as per the referring clinician. Note that the examination was performed in [facility] on without oral and IV contrast. A dose lowering technique was utilized adhering to the principles of ALARA. CT DOSE: 2447.45 mGy.cm FINDINGS: CHEST: Thyroid: Imaged portions of the thyroid gland are normal in size and attenuation. Thoracic aorta: There is atherosclerotic calcification of the thoracic aorta, which is normal in caliber and demonstrates standard 3-vessel arch anatomy. Heart: The heart is enlarged and without pericardial effusion. The coronary arteries are densely calcified. Lungs and pleural spaces: There is no airspace consolidation or pleural effusion. The trachea and central airways are clear. Scarring/atelectasis is noted at the lung bases. There are scattered calcified granulomas. A 5 mm right upper lobe pulmonary nodule is seen image 119. A 3 mm right middle lobe pulmonary nodule is seen on image #124, and a 3 mm left upper lobe pulmonary nodule is seen on image #116. A 3 mm right lower lobe pulmonary nodule is seen on image #148. Mediastinum: There is no mediastinal lymphadenopathy. Vielka: Not well assessed without IV contrast. Axillae: There is no axillary lymphadenopathy. Bony thorax: The skeletal structures are osteopenic. No lytic or blastic lesions are identified. ABDOMEN AND PELVIS: Liver: The unenhanced liver is normal in size, contour, and attenuation. There is no intrahepatic biliary ductal dilatation. A 12 mm left lobe hypodensity on image #59 is unchanged. This likely represents a hemangioma but cannot be characterized on today's examination. Gallbladder: Vicariously excreted contrast fills the gallbladder. Spleen: Normal in size and attenuation. Pancreas: The unenhanced pancreas is moderately atrophic and grossly unremarkable. Adrenal glands: Unremarkable. Kidneys: The unenhanced kidneys are atrophic and without hydronephrosis. There are extensive bilateral renovascular calcifications. No renal calculi are clearly identified. A 10 mm exophytic cyst arises from the left lower pole. Abdominal vasculature: The abdominal aorta is normal in course and caliber noting advanced atherosclerotic calcification. Bowel: Focal narrowing of the transverse colon on image #113 is unchanged. Submucosal fat deposition throughout the colon is nonspecific but has been described in the setting of chronic inflammation. There is no high-grade bowel obstruction. There are mildly distended and gas-filled loops of proximal jejunum in the upper abdomen which measure up to 3.4 cm. No transition point is identified. The appendix is well-visualized and normal. Peritoneum: There is no intraperitoneal free air or abdominal ascites. Lymphadenopathy: None. Pelvic viscera: The prostate gland is enlarged and heterogeneous noting median lobe hypertrophy. The bladder is decompressed and not evaluated. Excreted IV contrast is present within the bladder lumen. Skeletal structures: The skeletal structures are osteopenic. There is mild lumbosacral spondylosis. Bilateral pars defects are noted at L5. A large posterior disc bulge is seen at L4-L5. No lytic or blastic lesions are seen. IMPRESSION: 1. Cardiomegaly with no acute cardiopulmonary abnormality. 2. Scattered pulmonary nodules measure up to 5 mm. These are nonspecific and can be followed as per the Fleischner criteria. See below. 3. No acute infectious or inflammatory findings are identified in the abdomen or pelvis. 4. Focal narrowing is again seen in the transverse colon. This is nonspecific and may be related to stricture. An underlying mass lesion is not excluded and follow-up with colonoscopy is recommended. 5. There are mildly distended and gas-filled loops of proximal jejunum. This is a nonspecific finding and may represent mild ileus. Low-grade obstruction is considered less likely and clinical correlation will be required. Consider follow-up KUB in 1-2 days time for reassessment. 6. Advanced atherosclerotic vascular disease. 7. Additional findings as above. Please refer to below summary of Fleischner criteria recommendations for follow- up of incidental CT nodules (Jeffrey Patten, Guidelines for management of small pulmonary nodules detected on CT scans: A statement from the Fleischner Society, Radiology 237: [phone].) SOLID NODULES Solitary nodule size: <6 mm * low risk patients: no follow-up needed * high risk patients: optional CT at 12 months Solitary nodule size: 6-8 mm * low risk patients: follow-up at 6-12 months, then consider further follow-up at 18-24 months * high risk patients: initial follow-up CT at 6-12 months and then at 18-24 months if no change Solitary nodule size: >8 mm * either low or high risk patients - consider follow-up CT at 3 months, and/or CT-PET, and/or biopsy Multiple nodules size: <6 mm * low risk patients: no routine follow-up * high risk patients: optional CT at 12 months Multiple nodules size: 6-8 mm * low risk patients: follow-up at 3-6 months, then consider further follow-up at 18-24 months * high risk patients: follow-up at 3-6 months, then at 18-24 months if no change Multiple nodules size: >8 mm * low risk patients: follow-up at 3-6 months, then consider further follow-up at 18-24 months * high risk patients: follow-up at 3-6 months, then at 18-24 months if no change Note: newly detected indeterminate nodule in persons 35 years of age or older. * low risk patients: minimal or absent history of smoking and/or other known risk factors * high risk patients: history of smoking or of other known risk factors (e.g. first degree relative with lung cancer, or exposure to asbestos, radon, uranium) * if a nodule up to 8 mm is partly solid or is ground glass further follow-up is required after 24 months to exclude possible slow growing adenocarcinoma (PRINCE) SUBSOLID NODULES Solitary pure ground-glass nodule * nodule size <6 mm - no CT follow-up required * nodule size >=6 mm - follow-up CT at 6-12 months, then every 2 years until 5 years Solitary part-solid nodule * nodule size <6 mm - no CT follow-up required * nodule size >=6 mm - follow-up CT at 3-6 months. If unchanged, and solid component remains <6 mm, then annual follow-up for 5 years Multiple subsolid nodules * nodule size <6 mm - follow-up CT at 3-6 months, consider further follow-up at 2 and 4 years if stable * nodule size >=6 mm - follow-up CT at 3-6 months, subsequent management based on the most suspicious nodule(s) ACT 112: Negative or not required by law. Electronically signed by: Geovanny Frye M.D. 10/25/2020 9:07 AM PG Care Time/CCT Total # of Minutes Spent Total Time Spent with Patient: Total time spent is greater than 50% in coordination of care (as documented) at patient's floor/unit and/or counseling patient: Coding Level of Care Code 67169 Subseq Hosp Care Lvl 2 Diagnoses Abdominal pain R10.84 Abdominal location: generalized Diarrhea R19.7 Diarrhea type: unspecified type Insulin pump in place Z96.41 HTN (hypertension) I10 CAD (coronary artery disease) I25.10 ESRD (end stage renal disease) N18.6 Congestive heart failure I50.9 (1) Diarrhea Diarrhea type: unspecified type Qualified Code(s): R19.7 - Diarrhea, unspecified (2) Abdominal pain Abdominal location: generalized Qualified Code(s): R10.84 - Generalized abdominal pain
[2020-10-26 08:07] LABS: Basophils # (auto) 0.03 K/uL (0-0.2); Basophils % (auto) 0.2 %; Eosinophils # (auto) 0.18 K/uL (0-0.5); Hematocrit (blood only) 36.5 % (42-52); Hemoglobin 11.3 g/dL (14.0-18.0); Immature Granulocytes # (auto) 0.17 K/uL (0.00-0.02); Immature Granulocytes % (auto) 0.9 %; Lymphocytes # (auto) 1.24 K/uL (1.2-3.4); Lymphocytes % (auto) 6.9 %; Mean Corpuscular Hemoglobin 29.6 pg (25-34); Mean Corpuscular Volume 95.5 fL (80-100); Mean Platelet Volume 9.5 fL (7.4-10.4); Monocytes # (auto) 1.32 K/uL (0.11-0.59); Monocytes % (auto) 7.3 %; Neutrophils # (auto) 15.11 K/uL (1.4-6.5); Neutrophils % (auto) 83.7 %; Platelet Count 345 K/uL (130-400); RDW Coefficient of Variation 16.8 % (11.5-14.5); RDW Standard Deviation 59.3 fL (36.4-46.3); Red Blood Count 3.82 M/uL (4.7-6.1); White Blood Count 18.05 K/uL (4.8-10.8)
[2020-10-26] MEDS: SEVELAMER HCL 800 MG TABLET PO SCH ×4 (08:41→21:55)
[2020-10-26 08:56] LABS: Albumin Globulin Ratio 0.6 (0.9-2); Albumin Level 2.5 gm/dl (3.4-5.0); BUN Creatinine Ratio 3.8 (10-20); Bilirubin,Total 0.6 mg/dl (0.2-1); Calcium 10.1 mg/dl (8.5-10.1); Creatinine Clr Calc Pharmacy 11.9 ml/min; Est GFR (African American) 6.5 ml/min; Est GFR (Non-African American) 5.6 ml/min; Globulin 4.5 gm/dl (2.5-4.0); Phosphorus 7.8 mg/dl (2.5-4.9); Potassium 4.3 mmol/L (3.5-5.1)
--- NOTE | 2020-10-26 08:56 | Anesthesiology Consultation ---
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 Consults Requested none History Surgery Operation Date: 10/26/20 16:30 Proposed Procedures p Colonoscopy Dr Wu Washburn, s Esophagogastroduodenoscopy Dr Wu Washburn, Height/Weight Height: 6 ft 1 in Weight: 116.3 kg Allergies Allergy/AdvReac Type Severity Reaction Status Date / Time No Known Allergies Allergy Unverified 10/24/20 23:09 Medications Home Medications Medication Instructions Recorded Confirmed Last Taken aspirin 81 mg tablet,delayed 81 mg PO DAILY 11/18/18 10/24/20 10/22/20 release (Adult Aspirin Regimen) calcitriol 0.25 mcg capsule 0.25 mcg PO Q OTHER DAY cap 11/18/18 10/24/20 10/21/20 cinacalcet 90 mg tablet (Sensipar) 90 mg PO DAILY 03/24/19 10/24/20 10/22/20 furosemide 80 mg tablet (Lasix) 80 mg PO BID #180 tab 05/25/19 10/24/20 10/22/20 labetalol 100 mg tablet 100 mg PO BID #180 tab 12/28/19 10/24/20 10/22/20 insulin aspart U-100 100 unit/mL 70 unit CONTINUOUS SUBCUTANEOUS 01/11/20 10/24/20 10/23/20 subcutaneous solution (Novolog INFUSION DAILY 90 Days #63 ml U-100 Insulin aspart) rosuvastatin 10 mg tablet 10 mg PO DAILY #90 tab 08/19/20 10/24/20 10/22/20 clopidogrel 75 mg tablet 75 mg PO DAILY 10/23/20 10/24/20 10/22/20 ondansetron HCl 4 mg tablet 4 mg PO Q6H PRN #10 tab 10/23/20 10/24/20 Unknown (Zofran) sevelamer carbonate 800 mg tablet 2,400 mg PO ACHS 10/23/20 10/24/20 10/22/20 Active Medications Generic Name Dose Route Start Last Admin Trade Name Freq PRN Reason Stop Dose Admin Acetaminophen 650 mg 10/25/20 04:20 10/25/20 09:41 Acetaminophen 325 Mg Tab PO 11/24/20 04:19 650 mg Q4H PRN Administration pain/fever Aspirin 81 mg 10/25/20 09:00 10/25/20 09:42 Aspirin 81 Mg Ectab PO 11/24/20 08:59 81 mg DAILY CHANA Administration Cinacalcet 90 mg 10/25/20 09:00 10/25/20 11:37 Cinacalcet Hcl 90 Mg Tab PO 11/24/20 08:59 Not Given DAILY CHANA Clopidogrel Bisulfate 75 mg 10/25/20 09:00 10/25/20 09:43 Clopidogrel Bisulfate 75 Mg Tab PO 11/24/20 08:59 Not Given DAILY CHANA Furosemide 80 mg 10/25/20 09:00 10/25/20 17:53 Furosemide 80 Mg Tab PO 11/24/20 08:59 Not Given BID17 CHANA Hydromorphone HCl 0.2 mg 10/25/20 15:09 10/25/20 23:25 Hydromorphone Inj 0.5 Mg/0.5 Ml Syr IV 11/08/20 15:08 0.2 mg Q6H PRN Administration Pain Insulin Aspart 1 ea 10/26/20 06:00 10/26/20 05:52 Novolog Insulin Pump N/A 11/25/20 05:59 Not Given Q6 CHANA Protocol Labetalol HCl 100 mg 10/25/20 09:00 10/25/20 20:44 Labetalol Hcl 100 Mg Tab PO 11/24/20 08:59 Not Given BID CHANA Rosuvastatin Calcium 10 mg 10/25/20 09:00 10/25/20 09:43 Rosuvastatin Calcium 10 Mg Tab PO 11/24/20 08:59 10 mg DAILY CHANA Administration Sevelamer HCl 2,400 mg 10/25/20 07:30 10/26/20 08:41 Sevelamer Hcl 800 Mg Tablet PO 11/24/20 07:29 Not Given ACHS CHANA NPO Date Last Intake of Fluids: 10/25/20 Time Last Intake of Fluids: 04:05 Date Last Intake of Solids: 10/25/20 Time Last Intake of Solids: 04:05 Past Medical History Medical History Acquired claw toe of left foot Acquired claw toe of right foot Anemia CAD (coronary artery disease) CAD (coronary atherosclerotic disease) CHF (congestive heart failure) Decreased sensation of foot Diabetes 1.5, 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, uncontrolled Diabetic neuropathy associated with secondary diabetes mellitus ESRD (end stage renal disease) on dialysis Foot ulcer, left Foot ulcer, right Hallux valgus (acquired), right foot HTN (hypertension) HTN, goal to be determined Hyperlipidemia Insulin pump in place Past Family History Family History Mother History of hip replacement Carpal tunnel syndrome Father Myocardial infarction Cardiac arrest History of hernia repair Stroke Hypertension Dyslipidemia A-fib Brother Hypertension Past Surgical History Surgical History H/O eye surgery History of cataract surgery History of thoracic surgery S/P arteriovenous (AV) fistula creation S/P coronary artery stent placement Status post right foot surgery Social History Smoking Status: Never smoker Do You Dip or Chew Tobacco: No Hx Alcohol Use: Yes Alcohol type: beer alcohol intake frequency: holidays/special occasions only Hx Substance Use: No Physical Exam Vital Signs Last Vital Signs Temp 36.8 C 10/26/20 07:15 Pulse 71 10/26/20 07:15 Resp 22 10/26/20 07:15 BP 105/64 10/26/20 07:15 Pulse Ox 93 10/26/20 07:15 Testing Laboratory Results 10/26/20 07:39 10/26/20 05:46 POC Glucose 111 H Echocardiogram Date: 01/21/20 EF: 35-40% RWMA: + akinetic and + hypokinetic Other Findings: + RVH (Right ventricle mildly dilated) and + LVH (Moderate LVH)
--- NOTE | 2020-10-26 09:20 | History & Physical Bridge Note ---
Date of Service October 26, 2020 History & Physical Bridge Note I have examined the patient, reviewed the History & Physical and in the interval since the performance of the History & Physical I have noted the following changes of clinical significance: no changes noted. We are planning to do an upper endoscopy due to history of nausea and vomiting in addition to a colonoscopy due to suspicious findings on a recent CT scan within the transverse colon. We have discussed the risks of the procedures to include bleeding, infection, perforation and need for follow-up examinations.
[2020-10-26] MEDS: LABETALOL HCL 100 MG TAB PO SCH ×2 (09:21→21:22)
[2020-10-26] MEDS: FUROSEMIDE 80 MG TAB PO SCH ×2 (09:21→18:29)
--- NOTE | 2020-10-26 09:23 | Gastroenterology Progress Note ---
Date of Service October 26, 2020 Assessment & Plan (1) Abnormal CT of the abdomen: Plan: EGD, colonoscopy today. Plan for dialysis after endoscopy. Keep NPO until procedures. Plavix is being held, last dose Sat October 22. (2) Nausea: Plan: Antiemetics: zofran, phenergan are ordered prn. Admission and Anticipated Discharge Date Admission Date: October 25, 2020 Supervising Physician Co-Signing Physician Notes I saw and evaluated the patient. We are planning to perform an upper endoscopy for evaluation of his nausea in addition to a colonoscopy for evaluation of the changes seen on his recent CT scan. We have discussed the risks of the pr ocedures to include bleeding, infection, perforation, pain and need for follow- up studies. Subjective Mr. Jayce Terry is a 55 yr old male admitted with abd pain on 10/24. Weight loss and nausea/vomiting for approx [address] with transverse colon stricture. Prepped yesterday/last night. This mornings BMs yellow, liquid, flecks of solid. Plan is colonoscopy today. Review of Systems Review of Systems: ROS: Gen: + weakness, + weight loss Eyes: No eye redness, or pain, no recent vision changes Resp: No SOB, no cough Cardio: No palpitations/irregular beats, no chest pain GI: See HPI, otherwise (-) : Denies pain on urination Skin: No jaundice, itching or new rashes Physical Exam Constitutional: WD/WN, vitals as above (appears tired. Obese) Eyes: PERRL, conjunctivae normal, anicteric sclerae ENMT: external ear and nose normal, oropharynx normal Respiratory: normal respiratory effort, lungs clear to auscultation Cardiovascular: RRR, no murmur, no edema Gastrointestinal (Abdomen): normal bowel sounds, soft, nontender, no hepatosplenomegaly Skin: no rashes, warm and dry Neurologic: PERRL, EOMI, accommodation nl, no face palsy, no dysarthria Psychiatric: A+Ox3, euthymic affect Results & Data ([facility]) Vital Signs (Past 12 Hours) Vital Signs Temp Pulse Resp BP BP Pulse Ox 10/26/20 09:08 36.8 C 79 22 140/36 L 98 10/26/20 07:15 36.8 C 71 22 105/64 93 10/25/20 22:40 37.3 C 73 24 111/63 93 Laboratory Results WBC 18, Hb 11.3, Hct 26.5, glucose 345, Na 130, K 4.3, BUN 36, Cr 9.36, glucose 111. Diagnostic Findings CTAP non contrast 10/25/20: 1. Cardiomegaly with no acute cardiopulmonary abnormality. 2. Scattered pulmonary nodules measure up to 5 mm. These are nonspecific and can be followed as per the Fleischner criteria. See below. 3. No acute infectious or inflammatory findings are identified in the abdomen or pelvis. 4. Focal narrowing is again seen in the transverse colon. This is nonspecific and may be related to stricture. An underlying mass lesion is not excluded and follow-up with colonoscopy is recommended. 5. There are mildly distended and gas-filled loops of proximal jejunum. This is a nonspecific finding and may represent mild ileus. Low-grade obstruction is considered less likely and clinical correlation will be required. Consider follow-up KUB in 1-2 days time for reassessment. 6. Advanced atherosclerotic vascular disease. 7. Additional findings as above.
[2020-10-26] MEDS ORDERED: LIDOCAINE 2% 2 ML VIAL/AMP(20MG/ML) INFIL ONE (09:55)
[2020-10-26] MEDS ORDERED: PROPOFOL IV EMULSION 10 MG/ML 20 ML VIAL IV ONE (09:55)
[2020-10-26] MEDS ORDERED: ENDOSCOPIC MARKER 5 ML SYR TOP ONE (10:26)
[2020-10-26] MEDS ORDERED: ONDANSETRON INJ 2 MG/ML 2 ML VIAL ONE (10:31)
[2020-10-26] MEDS ORDERED: PHENYLEPHRINE 100MCG/ML 5ML SYR ONE (10:31)
[2020-10-26] MEDS ORDERED: fentaNYL citrate 100 MCG/2 ML VIAL ONE (10:31)
--- NOTE | 2020-10-26 10:51 | GI REPORT ---
Patient Name: Jayce Terry Procedure Date: 10/26/2020 10:00 AM Date of : 1965 Admit Type: Inpatient Age: 55 Gender: Male Attending MD: Yuni Washburn DO Procedure: Upper GI endoscopy Providers: Yuni Washburn DO Referring MD: Oswaldo Gonzalez Indications: Nausea with vomiting Medicines: Monitored Anesthesia Care Complications: No immediate complications. Estimated blood loss: Minimal. Estimated Blood Loss: Estimated blood loss was minimal. Procedure: Pre-Anesthesia Assessment: - Prior to the procedure, a History and Physical was performed, and patient medications, allergies and sensitivities were reviewed. The patient's tolerance of previous anesthesia was reviewed. - The risks and benefits of the procedure and the sedation options and risks were discussed with the patient. All questions were answered and informed consent was obtained. - Patient identification and proposed procedure were verified prior to the procedure by the physician, the nurse and the first calender worker. The procedure was verified in the procedure room. - Pre-procedure physical examination revealed no contraindications to sedation. - ASA Grade Assessment: III - A patient with severe systemic disease. - After reviewing the risks and benefits, the patient was deemed in satisfactory condition to undergo the procedure. - The anesthesia plan was to use monitored anesthesia care (MAC). - Immediately prior to administration of medications, the patient was re-assessed for adequacy to receive sedatives. - The heart rate, respiratory rate, oxygen saturations, blood pressure, adequacy of pulmonary ventilation, and response to care were monitored throughout the procedure. - The physical status of the patient was re-assessed after the procedure. After obtaining informed consent, the endoscope was passed under direct vision. Throughout the procedure, the patient's blood pressure, pulse, and oxygen saturations were monitored continuously. The scope was introduced through the mouth, and advanced to the third part of duodenum. The upper GI endoscopy was accomplished without difficulty. The patient tolerated the procedure well. Findings: The examined esophagus was normal. Diffuse mild inflammation characterized by congestion (edema), erythema and granularity was found in the entire examined stomach. Biopsies were taken with a cold forceps for histology. The pathology specimen was placed into Bottle B. Estimated blood loss was minimal. A few 4 to 6 mm semi-sessile polyps with no bleeding and no stigmata of recent bleeding were found in the gastric body. Biopsies were taken with a cold forceps for histology. The pathology specimen was placed into Bottle C. Estimated blood loss was minimal. The examined duodenum was normal. Biopsies were taken with a cold forceps for histology. The pathology specimen was placed into Bottle A. Estimated blood loss was minimal. Impression: - Normal esophagus. - Gastritis. Biopsied. - A few gastric polyps. Biopsied. - Normal examined duodenum. Biopsied. Recommendation: - Perform a colonoscopy today. - Await pathology results. Yuni Washburn D.O. Yuni Washburn, 10/26/2020 10:50:55 AM This report has been signed electronically. Note Initiated On: 10/26/2020 10:00 AM Number of Addenda: 0 I attest to the content of the Intraoperative Record and orders documented therein, exceptions below {[id number]}
--- NOTE | 2020-10-26 10:58 | GI REPORT ---
Patient Name: Jayce Terry Procedure Date: 10/26/2020 9:59 AM Date of : 1965 Admit Type: Inpatient Age: 55 Gender: Male Attending MD: Yuni Washburn DO Procedure: Colonoscopy Providers: Yuni Washburn DO Referring MD: Oswaldo Gonzalez Indications: Epigastric abdominal pain, Abnormal CT of the GI tract Medicines: Monitored Anesthesia Care Complications: No immediate complications. Estimated blood loss: Minimal. Estimated Blood Loss: Estimated blood loss was minimal. Procedure: Pre-Anesthesia Assessment: - Prior to the procedure, a History and Physical was performed, and patient medications, allergies and sensitivities were reviewed. The patient's tolerance of previous anesthesia was reviewed. - The risks and benefits of the procedure and the sedation options and risks were discussed with the patient. All questions were answered and informed consent was obtained. - Patient identification and proposed procedure were verified prior to the procedure by the physician, the nurse and the child care attendant. The procedure was verified in the procedure room. - Pre-procedure physical examination revealed no contraindications to sedation. - ASA Grade Assessment: III - A patient with severe systemic disease. - Pre-procedure physical examination revealed no contraindications to sedation. - The anesthesia plan was to use monitored anesthesia care (MAC). - Immediately prior to administration of medications, the patient was re-assessed for adequacy to receive sedatives. - The heart rate, respiratory rate, oxygen saturations, blood pressure, adequacy of pulmonary ventilation, and response to care were monitored throughout the procedure. - The physical status of the patient was re-assessed after the procedure. After I obtained informed consent, the scope was passed under direct vision. Throughout the procedure, the patient's blood pressure, pulse, and oxygen saturations were monitored continuously. The scope was introduced through the anus and advanced to the cecum, identified by appendiceal orifice and ileocecal valve. The colonoscopy was performed without difficulty. The patient tolerated the procedure well. The quality of the bowel preparation was fair. Findings: The perianal and digital rectal examinations were normal. Pertinent negatives include normal sphincter tone. Internal hemorrhoids were found during retroflexion. The hemorrhoids were mild. A 5 mm polyp was found in the ascending colon. The polyp was sessile. The polyp was removed with a cold snare. Resection and retrieval were complete. The pathology specimen was placed into Bottle D. Estimated blood loss was minimal. Segmental severe inflammation characterized by congestion (edema) and deep ulcerations was found in the cecum. Biopsies were taken with a cold forceps for histology. Estimated blood loss was minimal. The pathology specimen was placed into Bottle E. Segmental severe inflammation characterized by altered vascularity, congestion (edema), erythema and deep ulcerations was found in the mid transverse colon. Biopsies were taken with a cold forceps for histology. The pathology specimen was placed into Bottle F. Area was tattooed with an injection of 2 mL of Spot (carbon black). Estimated blood loss was minimal. Impression: - Preparation of the colon was fair. - Internal hemorrhoids. - One 5 mm polyp in the ascending colon, removed with a cold snare. Resected and retrieved. - Segmental severe inflammation was found in the cecum secondary to ischemic colitis. Biopsied. - Segmental severe inflammation was found in the mid transverse colon secondary to ischemic colitis. Biopsied. Tattooed. Recommendation: - [facility]. - Clear liquid diet today. - Use broad spectrum antibiotics for 2 weeks. -If patient develops worsening symptoms or peritoneal signs would recommend surgical consultation or referral to a tertiary center. -We will suggest a repeat colonoscopy in 8 to 12 weeks to ensure mucosal healing. Yuni Washburn D.O. Yuni Washburn, 10/26/2020 10:57:56 AM This report has been signed electronically. Note Initiated On: 10/26/2020 9:59 AM Number of Addenda: 0 I attest to the content of the Intraoperative Record and orders documented therein, exceptions below {[id number]}
--- NOTE | 2020-10-26 10:59 | Communication Note ---
Date of Service: October 26, 2020 The patient underwent upper endoscopy and colonoscopy this morning. The upper endoscopy was notable for mild gastritis and several small polyps. The co lonoscopy was notable for evidence of ischemic colitis in the transverse colon and in the region of the cecum. Several biopsies were obtained to help establish the diagnosis. Recommendations Clear liquid diet Continue with IV hydration please Continue with broad-spectrum antibiotic coverage for total of 2 weeks If patient develops worsening symptoms or peritoneal signs general surgery should be consulted
[2020-10-26] MEDS: CALCITRIOL 0.25 MCG CAPSULE PO SCH (18:26)
[2020-10-26] MEDS: ASPIRIN 81 MG ECTAB PO SCH (18:27)
[2020-10-26] MEDS: CIPROFLOXACIN 500 MG TAB PO SCH (18:29)
[2020-10-26] MEDS: ROSUVASTATIN CALCIUM 10 MG TAB PO SCH (18:29)
[2020-10-26] MEDS: metroNIDAZOLE 500 MG TAB PO SCH (18:29)
[2020-10-26] MEDS: CINACALCET HCL 90 MG TAB PO SCH (18:30)
--- NOTE | 2020-10-26 18:42 | Nephrology Progress Note ---
Date of Service October 26, 2020 Assessment & Plan (1) ESRD (end stage renal disease): Plan: HD MWF. Rx: 4 hours 200 optiflux, 450/800, 2K. AVF functioning well. EDW 120 kg. No complications with treatment today. Medications appropriate for kidney dysfunction. BP and volume status acceptable. Metabolic profile normal. Calcitriol for sPTH. Sevelamer QAC while taking PO. (2) Abnormal CT of the abdomen: Plan: Colonoscopy completed this AM. Admission and Anticipated Discharge Date Admission Date: October 25, 2020 Subjective No acute events overnight. Seen and evaluated during and post HD. Tolerated HD well without complications. BP acceptable. Review of Systems Review of Systems: All systems reviewed & are unremarkable except as noted in HPI & below Physical Exam Constitutional: well developed; no acute distress Eyes: no scleral abnormality and no corneal abnormality ENMT: Mouth: no oral mucosal abnormality and oral mucous membranes not dry Neck: normal visual inspection and trachea midline Respiratory: normal respiratory effort Auscultation: lungs clear to auscultation bilaterally Cardiovascular: Rate/Rhythm: regular rate Heart Sounds: normal S1, normal S2 and + murmur Extremities: + AV fistula; no edema Musculoskeletal: Extremities: no cyanosis and no clubbing Skin: normal turgor; no lesions Neurologic: Motor/Sensory: no tremor and no asterixis Psychiatric: Orientation: alert and oriented x 3 Results & Data ([facility]) Vital Signs (Past 12 Hours) Vital Signs Temp Pulse Pulse Pulse Resp BP BP 10/26/20 17:56 36.8 C 78 22 10/26/20 17:20 36.5 C 66 138/71 10/26/20 16:40 70 151/82 H 10/26/20 16:20 71 149/84 H 10/26/20 16:00 71 135/71 10/26/20 15:40 62 138/73 10/26/20 15:20 63 141/77 H 10/26/20 15:00 67 128/68 10/26/20 14:40 64 133/73 10/26/20 14:20 63 140/66 10/26/20 14:00 63 137/69 10/26/20 13:40 62 122/64 10/26/20 13:20 64 128/64 10/26/20 13:07 37.0 C 63 10/26/20 13:00 63 141/71 H 10/26/20 12:25 67 18 10/26/20 11:40 36.6 C 68 18 122/78 10/26/20 11:15 68 16 123/59 L 10/26/20 11:00 78 16 113/47 L 10/26/20 10:45 78 16 103/51 L 10/26/20 09:08 36.8 C 79 22 140/36 L 10/26/20 07:15 36.8 C 71 22 BP Pulse Ox 10/26/20 17:56 133/62 92 10/26/20 17:20 10/26/20 16:40 10/26/20 16:20 10/26/20 16:00 10/26/20 15:40 10/26/20 15:20 10/26/20 15:00 10/26/20 14:40 10/26/20 14:20 10/26/20 14:00 10/26/20 13:40 10/26/20 13:20 10/26/20 13:07 10/26/20 13:00 10/26/20 12:25 123/72 92 10/26/20 11:40 97 10/26/20 11:15 96 10/26/20 11:00 97 10/26/20 10:45 94 10/26/20 09:08 98 10/26/20 07:15 105/64 93 Laboratory Results Laboratory Results - last 24 hr 10/25/20 10/26/20 10/26/20 20:39 05:46 07:39 WBC 18.05 H RBC 3.82 L Hgb 11.3 L Hct 36.5 L MCV 95.5 MCH 29.6 MCHC 31.0 L RDW Std Deviation 59.3 H RDW Coeff of Tl 16.8 H Plt Count 345 MPV 9.5 Immature Gran % (Auto) 0.9 Neut % (Auto) 83.7 Lymph % (Auto) 6.9 [place] % (Auto) 7.3 Eos % (Auto) 1.0 Baso % (Auto) 0.2 Neut # (Auto) 15.11 H Lymph # (Auto) 1.24 [place] # (Auto) 1.32 H Eos # (Auto) 0.18 Baso # (Auto) 0.03 Immature Gran # (Auto) 0.17 H Sodium Potassium Chloride Carbon Dioxide Anion Gap BUN Creatinine Est Cr Clr Drug Dosing Est GFR ( Amer) Est GFR (Non-Af Amer) BUN/Creatinine Ratio Glucose POC Glucose 118 H 111 H Calcium Phosphorus Total Bilirubin AST ALT Alkaline Phosphatase Total Protein Albumin Globulin Albumin/Globulin Ratio 10/26/20 07:39 WBC RBC Hgb Hct MCV MCH MCHC RDW Std Deviation RDW Coeff of Tl Plt Count MPV Immature Gran % (Auto) Neut % (Auto) Lymph % (Auto) [place] % (Auto) Eos % (Auto) Baso % (Auto) Neut # (Auto) Lymph # (Auto) [place] # (Auto) Eos # (Auto) Baso # (Auto) Immature Gran # (Auto) Sodium 130 L Potassium 4.3 Chloride 93 L Carbon Dioxide 25 Anion Gap 12.0 H BUN 36 H Creatinine 9.39 H* D Est Cr Clr Drug Dosing 11.9 Est GFR ( Amer) 6.5 Est GFR (Non-Af Amer) 5.6 BUN/Creatinine Ratio 3.8 L Glucose 123 H POC Glucose Calcium 10.1 Phosphorus 7.8 H Total Bilirubin 0.6 AST 17 ALT 15 Alkaline Phosphatase 110 Total Protein 7.0 Albumin 2.5 L Globulin 4.5 H Albumin/Globulin Ratio 0.6 L PG Care Time/CCT Total # of Minutes Spent Total Time Spent with Patient: Total time spent is greater than 50% in coordination of care (as documented) at patient's floor/unit and/or counseling patient: Coding Level of Care Code 09955 Subseq Hosp Care Lvl 2 Diagnoses ESRD (end stage renal disease) N18.[address] of the abdomen R93.5
[2020-10-26] MEDS: PANTOprazole 40 MG TAB PO SCH (21:20)
[2020-10-26] MEDS: PROCHLORPERAZINE MALEATE 5 MG TAB PO PRN (21:23)
[2020-10-26] MEDS: HYDROmorphone INJ 0.5 MG/0.5 ML SYR IV PRN (23:43)
[2020-10-27] MEDS: metroNIDAZOLE 500 MG TAB PO SCH ×2 (00:11→07:54)
[2020-10-27] MEDS: HYDROmorphone INJ 0.5 MG/0.5 ML SYR IV PRN (05:44)
[2020-10-27 06:54] LABS: Basophils # (auto) 0.05 K/uL (0-0.2); Basophils % (auto) 0.3 %; Eosinophils % (auto) 0.5 %; Hematocrit (blood only) 37.5 % (42-52); Hemoglobin 11.8 g/dL (14.0-18.0); Immature Granulocytes # (auto) 0.24 K/uL (0.00-0.02); Immature Granulocytes % (auto) 1.3 %; Lymphocytes # (auto) 1.17 K/uL (1.2-3.4); Lymphocytes % (auto) 6.3 %; Mean Corpuscular Hemoglobin 29.7 pg (25-34); Mean Corpuscular Hgb Conc 31.5 g/dL (32-36); Mean Corpuscular Volume 94.5 fL (80-100); Mean Platelet Volume 9.7 fL (7.4-10.4); Monocytes # (auto) 1.31 K/uL (0.11-0.59); Monocytes % (auto) 7.1 %; Neutrophils # (auto) 15.59 K/uL (1.4-6.5); Neutrophils % (auto) 84.5 %; Nucleated RBC # (auto) 0.03 K/uL (0-0); Nucleated RBC % (auto) 0.2 %; Platelet Count 334 K/uL (130-400); RDW Coefficient of Variation 16.9 % (11.5-14.5); RDW Standard Deviation 57.7 fL (36.4-46.3); Red Blood Count 3.97 M/uL (4.7-6.1); White Blood Count 18.46 K/uL (4.8-10.8)
[2020-10-27 07:35] LABS: Albumin Globulin Ratio 0.5 (0.9-2); Albumin Level 2.5 gm/dl (3.4-5.0); Bilirubin,Total 0.5 mg/dl (0.2-1); Creatinine Clr Calc Pharmacy 16.5 ml/min; Est GFR (African American) 9.8 ml/min; Est GFR (Non-African American) 8.4 ml/min; Potassium 4.5 mmol/L (3.5-5.1); Total Protein 7.5 gm/dl (6.4-8.2)
[2020-10-27] MEDS: PANTOprazole 40 MG TAB PO SCH ×2 (07:50→20:39)
[2020-10-27] MEDS: CALCITRIOL 0.25 MCG CAPSULE PO SCH (07:50)
[2020-10-27] MEDS: SEVELAMER HCL 800 MG TABLET PO SCH ×4 (07:51→20:31)
[2020-10-27] MEDS: PROCHLORPERAZINE MALEATE 5 MG TAB PO PRN (07:51)
[2020-10-27] MEDS: LABETALOL HCL 100 MG TAB PO SCH (07:51)
[2020-10-27] MEDS: CINACALCET HCL 90 MG TAB PO SCH (07:52)
[2020-10-27] MEDS: ASPIRIN 81 MG ECTAB PO SCH (07:53)
[2020-10-27] MEDS: FUROSEMIDE 80 MG TAB PO SCH ×2 (07:53→17:34)
[2020-10-27] MEDS: CIPROFLOXACIN 500 MG TAB PO SCH (07:53)
[2020-10-27] MEDS: ROSUVASTATIN CALCIUM 10 MG TAB PO SCH (07:54)
--- NOTE | 2020-10-27 07:57 | Hospitalist Progress Note ---
Date of Service October 27, 2020 Assessment & Plan (1) Abdominal pain: Plan: 1. Abdominal paincolonoscopypretty severe ischemic colitis Persistent symptoms; persistent leukocytosis Surgery inputat present not at the point of needing surgery (colectomy) but keep an open mind Keep clear liquids for now 2. Gastritis on EGDPPI This is not a primary problemit is #1 3 ESRD - MWF dialysis Management per nephrology 4..DM1 - insulin pump in place - pharmacy glycemic consulted 5. HTN - Pressures acceptable; switch to metoprolol succinate 6. CAD-No current angina; follow clinically - cont statin, aspirin, plavix 7. 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% with grade 2 diastolic dysfunctionclinically well compensated; follow Present on admission Subcutaneous heparin for DVT prevention (2) Insulin pump in place: Plan: Sugars acceptable; pharmacy glycemic consult in place (3) HTN (hypertension): Plan: As above (4) CAD (coronary artery disease): Plan: As above (5) ESRD (end stage renal disease): Plan: Continue Saturday dialysis (6) Congestive heart failure: Plan: Present on admission, chronic combined systolic and diastolicwell compensated; Follow clinically and as above; volume removal with dialysis (7) Ischemic colitis: Plan: As above Admission and Anticipated Discharge Date Admission Date: October 25, 2020 Subjective Persistent painhe thinks no different than yesterday; lot of nausea but no vomiting; did have bowel movement yesterday Physical Exam Physical Exam: Constitutional and general: No acute distress, looks biologic age Head and face: No puffiness, atraumatic Eyes: No scleral icterus, extraocular movements normal Neck: Supple, no JVD Musculoskeletal: No acute joint swelling, no bony abnormalities Skin/dermatologic/integument: No rash, no purpura Hematologic and lymphatic: pallor +-Mild, no petechia Gastrointestinal/abdomen: Mildly distended, soft, nonacute Neurologic: Cranial nerves intact, nonfocal Psychiatry: Awake, alert, pleasant, communicative Cardiovascular: Heart rhythm regular, no rub, ESM at base soft, no gallop Respiratory: Chest movements equal, no use of accessory muscles, no adventitious sounds Extremities: No significant edema, no cyanosis Results & Data Results & Data ([facility]) Vital Signs (Past 12 Hours) Vital Signs Temp Pulse Resp BP Pulse Ox 10/27/20 04:30 36.7 C 71 24 119/67 92 10/26/20 23:05 36.9 C 68 20 121/64 93 Coding Level of Care Code 11907 Subseq Hosp Care Lvl 2 Diagnoses Abdominal pain R10.84 Abdominal location: generalized Insulin pump in place Z96.41 HTN (hypertension) I10 CAD (coronary artery disease) I25.10 ESRD (end stage renal disease) N18.6 Congestive heart failure I50.9 Ischemic colitis K55.9 (1) Abdominal pain Abdominal location: generalized Qualified Code(s): R10.84 - Generalized abdominal pain
[2020-10-27] MEDS ORDERED: METOPROLOL SUCC 25MG EXT REL TAB PO SCH (09:00)
[2020-10-27] MEDS: NovoLOG INSULIN PUMP SCH ×4 (09:06→20:39)
--- NOTE | 2020-10-27 09:48 | Surgery Consultation ---
Date of Consultation October 27, 2020 Assessment & Plan (1) Ischemic colitis: Patient with relatively severe ischemic colitis involving the cecum and proximal transverse colon Colonoscopy does show necrosis in these 2 areas, there is no significant dilatation of the colon Patient does not have peritoneal signs It is concerning he has persistent pain, I would not necessarily restrict his diet He is extremely high risk for major surgery I really do not favor watching him in our hospital and then attempting transfer to a tertiary care center if he becomes worse I have discussed with him the possibility of transfer to tertiary care center including possibly [facility] I am currently trying to discuss his case with the colorectal surgeons in [place], he could be considered a hospitalist transfer History of Present Illness Reason for Consultation: Ischemic colitis Attending Physician: Ivonne Hall MD History of Present Illness Patient 55-year-old male with end-stage renal disease on hemodialysis who was admitted to the hospital on 10/23/2020 through the emergency room His complaint was abdominal pain mostly central cramping and intermittent He did have some changes on his CAT scan showing narrowing in the proximal transverse colon On 10/26/2020 Dr. Washburn performed colonoscopy showing 2 areas of relatively severe necrosis involving the cecum and proximal transverse colon Which appear to be from ischemic colitis He does not have a significantly dilated colon, but he does have persistent pain which is not changed over the last 48 hours His white blood cell count is 18.4 Other comorbidityend-stage renal disease,HD, CAD, stents- asa/plavix, htn, chf, DM Allergies Allergy/AdvReac Type Severity Reaction Status Date / Time No Known Allergies Allergy Unverified 10/24/20 23:09 Home Medications Medication Instructions Recorded Confirmed Type aspirin 81 mg tablet,delayed 81 mg PO DAILY 11/18/18 10/24/20 History release (Adult Aspirin Regimen) calcitriol 0.25 mcg capsule 0.25 mcg PO Q OTHER DAY cap 11/18/18 10/24/20 History cinacalcet 90 mg tablet (Sensipar) 90 mg PO DAILY 03/24/19 10/24/20 History furosemide 80 mg tablet (Lasix) 80 mg PO BID #180 tab 05/25/19 10/24/20 Rx labetalol 100 mg tablet 100 mg PO BID #180 tab 12/28/19 10/24/20 Rx insulin aspart U-100 100 unit/mL 70 unit CONTINUOUS SUBCUTANEOUS 01/11/20 10/24/20 Rx subcutaneous solution (Novolog INFUSION DAILY 90 Days #63 ml U-100 Insulin aspart) rosuvastatin 10 mg tablet 10 mg PO DAILY #90 tab 08/19/20 10/24/20 Rx clopidogrel 75 mg tablet 75 mg PO DAILY 10/23/20 10/24/20 History ondansetron HCl 4 mg tablet 4 mg PO Q6H PRN #10 tab 10/23/20 10/24/20 Rx (Zofran) sevelamer carbonate 800 mg tablet 2,400 mg PO ACHS 10/23/20 10/24/20 History Patient History Medical History Acquired claw toe of left foot Acquired claw toe of right foot Anemia CAD (coronary artery disease) CAD (coronary atherosclerotic disease) CHF (congestive heart failure) Decreased sensation of foot Diabetes 1.5, 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, uncontrolled Diabetic neuropathy associated with secondary diabetes mellitus ESRD (end stage renal disease) on dialysis Foot ulcer, left Foot ulcer, right Hallux valgus (acquired), right foot HTN (hypertension) HTN, goal to be determined Hyperlipidemia Insulin pump in place Surgical History H/O eye surgery History of cataract surgery History of thoracic surgery S/P arteriovenous (AV) fistula creation S/P coronary artery stent placement Status post right foot surgery Family History Mother History of hip replacement Carpal tunnel syndrome Father Myocardial infarction Cardiac arrest History of hernia repair Stroke Hypertension Dyslipidemia A-fib Brother Hypertension Social History Smoking Status: Never smoker Second Hand Exposure: No; Do You Dip or Chew Tobacco: No; Tobacco Cessation Education Requested by Patient: No Hx Alcohol Use: Yes Alcohol type: beer Hx Substance Use: No Preferred Language: [place]an Communication Ability: Effective Visual Impairment: Limited Hearing Ability: Normal Facility Maintenance Helper Required: No Beliefs That Will Affect Care: None marital status: Current Living Situation: Spouse current occupational status: retired and disabled Other Information That Helps Us Care for You: No Feels Safe at Home: Yes Safety Concerns: Feels Safe At This Time Assistive Devices: None Review of Systems Review of Systems: All systems reviewed & are unremarkable except as noted in HPI & below Physical Exam Physical Exam: Patient is awake and alert He is no distress-he does not have any significant pain to palpation and no peritoneal signs His abdomen is soft and nondistended Constitutional: well nourished; no acute distress Eyes: + anicteric sclerae Respiratory: normal respiratory effort; no respiratory distress Cardiovascular: Rate/Rhythm: regular rate Gastrointestinal (Abdomen): Inspection/Auscultation: normal bowel sounds; abdomen not distended Musculoskeletal: Head/Neck/Chest: + evidence of head trauma Skin: no rashes, warm and dry Psychiatric: Orientation: alert Results & Data ([facility]) Vital Signs (Past 12 Hours) Vital Signs Temp Pulse Resp BP Pulse Ox 10/27/20 07:12 36.5 C 75 18 130/78 93 10/27/20 04:30 36.7 C 71 24 119/67 92 10/26/20 23:05 36.9 C 68 20 121/64 93 Laboratory Results I reviewed his laboratories Diagnostic Findings I reviewed his CAT scan and colonoscopy PG Care Time/CCT Total # of Minutes Spent Total Time Spent with Patient: Total time spent is greater than 50% in coordination of care (as documented) at patient's floor/unit and/or counseling patient: Coding Level of Care Code 98508 Inpt Consult Level 4 Diagnoses Ischemic colitis K55.9
[2020-10-27] MEDS ORDERED: HYDROmorphone INJ 0.5 MG/0.5 ML SYR IV PRN ×2 (09:54→21:47)
[2020-10-27] MEDS: HEPARIN SOD 5,000 UNIT/0.5 ML VIAL SQ SCH ×2 (10:18→20:38)
--- NOTE | 2020-10-27 11:25 | Pharmacy Report ---
Pharmacy Glycemic Short Note 2 - Date of Service October 27, 2020 - Glycemic Short BSG Results (Last 24 hours): 10/26/20 10/27/20 10/27/20 21:16 06:27 09:04 Glucose 143 H POC Glucose 212 H 147 H OUTPATIENT ANTIDIABETIC REGIMEN: * Novolog Insulin Pump * Basal: * 00:00- 1.45 units/hr * 07:30- 1.35 units/hr * 12:00- 1.45 units/hr * ICR: 6.3 * SF: 28 * ESRD will not get new A1c ASSESSMENT: 10/27/20 * Patient's blood sugar control acceptable on his own insulin pump, patient's brought in supplies, continue at this time 10/25/20 * Patient admitted with intractable nausea, recent weight loss, plans for c olonoscopy, HD tomorrow per schedule * Patient continues on insulin pump, per [employer] patient currently has 59 units in pump- contacting to bring in supplies to change, will need to transition to SQ basal/bolus if unable to obtain new supplies before change * BSGs 101-193 mg/dL continue to monitor, currently on clears PLAN FOR INPATIENT GLYCEMIC CONTROL: * Patient managing home insulin pump
--- NOTE | 2020-10-27 12:49 | Nephrology Progress Note ---
Date of Service October 27, 2020 Assessment & Plan (1) ESRD (end stage renal disease): Plan: HD MWF. Rx: 4 hours 200 optiflux, 450/800, 2K. AVF functioning well. EDW 120 kg. Due to continued weight loss, Jayce is well below his EDW. No complications with treatment yesterday. Medications appropriate for kidney dysfunction. BP and volume status acceptable. Metabolic profile normal. Calcitriol for sPTH. Sevelamer QAC while taking PO. (2) Abnormal CT of the abdomen: Plan: Colonoscopy completed yesterday colonoscopy showing 2 areas of relatively severe necrosis involving the cecum and proximal transverse colon consistent with ischemic colitis. Surgical consultation reviewed. No immediate intervention planned. Admission and Anticipated Discharge Date Admission Date: October 25, 2020 Subjective Persistent abdominal pain. Some improvement. Tolerating clear liquids. Passing liquid stool and flatus. Tolerated HD yesterday without complications. UF 2 L. Review of Systems Review of Systems: All systems reviewed & are unremarkable except as noted in HPI & below Physical Exam Constitutional: well developed; no acute distress Eyes: no scleral abnormality and no corneal abnormality ENMT: Mouth: no oral mucosal abnormality and oral mucous membranes not dry Neck: normal visual inspection and trachea midline Respiratory: normal respiratory effort Auscultation: lungs clear to auscultation bilaterally Cardiovascular: Rate/Rhythm: regular rate Heart Sounds: normal S1, normal S2 and + murmur Extremities: + AV fistula; no edema Musculoskeletal: Extremities: no cyanosis and no clubbing Skin: normal turgor; no lesions Neurologic: Motor/Sensory: no tremor and no asterixis Psychiatric: Orientation: alert and oriented x 3 Results & Data ([facility]) Vital Signs (Past 12 Hours) Vital Signs Temp Pulse Resp BP Pulse Ox 10/27/20 07:12 36.5 C 75 18 130/78 93 10/27/20 04:30 36.7 C 71 24 119/67 92 Laboratory Results Laboratory Results - last 24 hr 10/26/20 10/27/20 10/27/20 21:16 06:27 06:27 WBC 18.46 H RBC 3.97 L Hgb 11.8 L Hct 37.5 L MCV 94.5 MCH 29.7 MCHC 31.5 L RDW Std Deviation 57.7 H RDW Coeff of Tl 16.9 H Plt Count 334 MPV 9.7 Immature Gran % (Auto) 1.3 Neut % (Auto) 84.5 Lymph % (Auto) 6.3 [place] % (Auto) 7.1 Eos % (Auto) 0.5 Baso % (Auto) 0.3 Neut # (Auto) 15.59 H Lymph # (Auto) 1.17 L [place] # (Auto) 1.31 H Eos # (Auto) 0.10 Baso # (Auto) 0.05 Immature Gran # (Auto) 0.24 H Absolute Nucleated RBC 0.03 H Nucleated RBC % (auto) 0.2 Sodium 132 L Potassium 4.5 Chloride 98 Carbon Dioxide 25 Anion Gap 9.0 BUN 20 H Creatinine 6.71 H* D Est Cr Clr Drug Dosing 16.5 Est GFR ( Amer) 9.8 Est GFR (Non-Af Amer) 8.4 BUN/Creatinine Ratio 3.0 L Glucose 143 H POC Glucose 212 H Calcium 10.0 Total Bilirubin 0.5 AST 18 ALT 21 Alkaline Phosphatase 115 Total Protein 7.5 Albumin 2.5 L Globulin 5.0 H Albumin/Globulin Ratio 0.5 L 10/27/20 10/27/20 09:04 11:53 WBC RBC Hgb Hct MCV MCH MCHC RDW Std Deviation RDW Coeff of Tl Plt Count MPV Immature Gran % (Auto) Neut % (Auto) Lymph % (Auto) [place] % (Auto) Eos % (Auto) Baso % (Auto) Neut # (Auto) Lymph # (Auto) [place] # (Auto) Eos # (Auto) Baso # (Auto) Immature Gran # (Auto) Absolute Nucleated RBC Nucleated RBC % (auto) Sodium Potassium Chloride Carbon Dioxide Anion Gap BUN Creatinine Est Cr Clr Drug Dosing Est GFR ( Amer) Est GFR (Non-Af Amer) BUN/Creatinine Ratio Glucose POC Glucose 147 H 131 H Calcium Total Bilirubin AST ALT Alkaline Phosphatase Total Protein Albumin Globulin Albumin/Globulin Ratio PG Care Time/CCT Total # of Minutes Spent Total Time Spent with Patient: Total time spent is greater than 50% in coordination of care (as documented) at patient's floor/unit and/or counseling patient: Coding Level of Care Code 10602 Subseq Hosp Care Lvl 3 Diagnoses ESRD (end stage renal disease) N18.[address] of the abdomen R93.5
[2020-10-27] MEDS ORDERED: DICYCLOMINE HCL 10 MG CAP PO PRN (15:07)
--- NOTE | 2020-10-27 15:07 | Gastroenterology Progress Note ---
Date of Service October 27, 2020 Assessment & Plan (1) Abnormal CT of the abdomen: Plan: Colonoscopy with ischemic colitis - see below. (2) Nausea: Plan: Antiemetics: zofran, phenergan are ordered prn. (3) Ischemic colitis: Plan: Agree with surgery opinion to consider transfer as pt may need colon resection if does not improve. Will add dicyclomine prn. Admission and Anticipated Discharge Date Admission Date: October 25, 2020 Supervising Physician Co-Signing Physician Notes I saw and evaluated the patient. He presented with abdominal discomfort and an abnormal CT. The findings during colonoscopy were most consistent with ischemic colitis likely related to history of hemodialysis and renal insufficiency. Typically the cornerstone of therapy for ischemic colitis is IV hydration in addition to antibiotics when the white blood cell count is greater than 15. Unfortunately due to the patient's renal status IV hydration has not been easy. Appreciate the insight from the internal medicine and nephrology services with regard to the patient's fluid status. Recommendations Continue antibiotic coverage for total of 2 weeks If symptoms persist would recommend a general surgery consultation Consider use of an antispasmodic at bedtime Repeat colonoscopy in 8 to 12 weeks to ensure healing. Subjective 5 yr old male with ESRD admitted on 10/26/20 for abd pain. Colonoscopy yesterday with ischemic colitis in the cecum and transverse colon. Pt sitting up in a chair at bedside. Continues with considerable pain - worse at night. Review of Systems Review of Systems: ROS: Gen: + weakness, + weight loss Eyes: No eye redness, or pain, no recent vision changes Resp: No SOB, no cough Cardio: No palpitations/irregular beats, no chest pain GI: See HPI, otherwise (-) : Denies pain on urination Skin: No jaundice, itching or new rashes Physical Exam Physical Exam: Initially sitting up in bed. AAO, very cooperative, good eye contact. Constitutional: WD/WN, vitals as above (appears tired. Obese) Eyes: PERRL, conjunctivae normal, anicteric sclerae ENMT: external ear and nose normal, oropharynx normal Neck: trachea midline, no thyromegaly Respiratory: normal respiratory effort, lungs clear to auscultation Cardiovascular: RRR, no murmur, no edema Gastrointestinal (Abdomen): Inspection/Auscultation: abdomen normal to inspection obese, + lower abd tenderness Skin: no rashes, warm and dry Neurologic: PERRL, EOMI, accommodation nl, no face palsy, no dysarthria Psychiatric: A+Ox3, euthymic affect Lymphatic: no cervical or axillary lymphadenopathy Results & Data ([facility]) Vital Signs (Past 12 Hours) Vital Signs Temp Pulse Resp BP Pulse Ox 10/27/20 07:12 36.5 C 75 18 130/78 93 10/27/20 04:30 36.7 C 71 24 119/67 92 Diagnostic Findings Colonoscopy yesterday by Dr. Washburn with segmental severe colitis in the cecum and mid transverse colon consistent with ischemic colitis.
[2020-10-27] MEDS: metroNIDAZOLE 500 MG/100 ML BAG IV SCH ×2 (17:35→22:46)
[2020-10-27] MEDS ORDERED: HYDROmorphone INJ 0.5 MG/0.5 ML SYR IV STA (20:08)
[2020-10-27] MEDS: PROMETHAZINE HCL 25 MG/20 ML UDP PO PRN (20:30)
[2020-10-27] MEDS ORDERED: fentaNYL citrate 100 MCG/2 ML VIAL IV PRN ×2 (21:04)
[2020-10-27] MEDS: ACETAMINOPHEN 1,000 MG/100 ML VIAL IV SCH (22:10)
[2020-10-27] MEDS: DICYCLOMINE HCL 10 MG CAP PO SCH (22:10)
[2020-10-28] MEDS: HYDROmorphone INJ 0.5 MG/0.5 ML SYR IV PRN ×3 (04:24→18:04)
[2020-10-28] MEDS: ACETAMINOPHEN 1,000 MG/100 ML VIAL IV SCH ×3 (06:06→20:53)
[2020-10-28 07:30] LABS: Basophils # (auto) 0.03 K/uL (0-0.2); Basophils % (auto) 0.2 %; Eosinophils # (auto) 0.25 K/uL (0-0.5); Eosinophils % (auto) 1.3 %; Hematocrit (blood only) 38.6 % (42-52); Immature Granulocytes # (auto) 0.21 K/uL (0.00-0.02); Immature Granulocytes % (auto) 1.1 %; Lymphocytes # (auto) 1.05 K/uL (1.2-3.4); Lymphocytes % (auto) 5.6 %; Mean Corpuscular Hemoglobin 29.6 pg (25-34); Mean Corpuscular Hgb Conc 31.1 g/dL (32-36); Mean Corpuscular Volume 95.3 fL (80-100); Mean Platelet Volume 9.5 fL (7.4-10.4); Monocytes # (auto) 1.88 K/uL (0.11-0.59); Neutrophils # (auto) 15.29 K/uL (1.4-6.5); Neutrophils % (auto) 81.8 %; Platelet Count 354 K/uL (130-400); RDW Coefficient of Variation 16.7 % (11.5-14.5); RDW Standard Deviation 58.6 fL (36.4-46.3); Red Blood Count 4.05 M/uL (4.7-6.1); White Blood Count 18.71 K/uL (4.8-10.8)
[2020-10-28 08:22] LABS: Albumin Globulin Ratio 0.6 (0.9-2); Albumin Level 2.5 gm/dl (3.4-5.0); BUN Creatinine Ratio 3.5 (10-20); Bilirubin,Total 0.5 mg/dl (0.2-1); Calcium 9.9 mg/dl (8.5-10.1); Creatinine Clr Calc Pharmacy 12.6 ml/min; Est GFR (African American) 7.1 ml/min; Est GFR (Non-African American) 6.1 ml/min; Globulin 4.5 gm/dl (2.5-4.0); Potassium 3.9 mmol/L (3.5-5.1)
--- NOTE | 2020-10-28 08:27 | Hospitalist Progress Note ---
Date of Service October 28, 2020 Assessment & Plan (1) Abdominal pain: Plan: 1. Acute ischemic colitis Surgery input appreciated; they called and was not accepted at [facility] At present stable to may be slightly better On IV antibiotics per discussion with surgery Diet being advanceddefer to surgery/GI abdominal paincolonoscopypretty severe ischemic colitis Persistent symptoms; persistent leukocyt 2. Gastritis on EGDPPI This is not a primary problemit is #1 3 ESRD - MWF dialysis Management per nephrology 4..DM1 - insulin pump in place - pharmacy glycemic consulted Sugars doing reasonable 5. HTN - Pressures acceptable; he refused metoprolol succinateswitch back to labetalol 6. CAD-No current angina; follow clinically - cont statin, aspirin, plavix 7. 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% with grade 2 diastolic dysfunctionclinically well compensated; follow Present on admission Will defer readdressing evidence-based beta-coral to PCP Subcutaneous heparin for DVT prevention (2) Acute ischemic colitis: Plan: As above (3) Insulin pump in place: Plan: Sugars acceptable; pharmacy glycemic consult in place (4) HTN (hypertension): Plan: As above (5) CAD (coronary artery disease): Plan: As above (6) ESRD (end stage renal disease): Plan: Continue Saturday dialysis (7) Congestive heart failure: Plan: Present on admission, chronic combined systolic and diastolicwell compensated; Follow clinically and as above; volume removal with dialysis Admission and Anticipated Discharge Date Admission Date: October 25, 2020 Subjective Follow-up of abdominal paindoing better according to him Physical Exam Physical Exam: Constitutional and general: No acute distress, looks biologic age Head and face: No puffiness, atraumatic Eyes: No scleral icterus, extraocular movements normal Neck: Supple, no JVD Musculoskeletal: No acute joint swelling, no bony abnormalities Skin/dermatologic/integument: No rash, no purpura Hematologic and lymphatic: pallor +-Mild, no petechia Gastrointestinal/abdomen: Mildly distended, soft, nonacute Neurologic: Cranial nerves intact, nonfocal Psychiatry: Awake, alert, pleasant, communicative Cardiovascular: Heart rhythm regular, no rub, ESM at base soft, no gallop Respiratory: Chest movements equal, no use of accessory muscles, no adventitious sounds Extremities: No significant edema, no cyanosis Results & Data Results & Data ([facility]) Vital Signs (Past 12 Hours) Vital Signs Temp Pulse Pulse Resp BP Pulse Ox 10/28/20 07:30 36.6 C 59 L 19 120/82 92 10/27/20 23:08 36.4 C L 55 L 17 110/63 92 Laboratory Results Laboratory Results - last 24 hr 10/27/20 10/27/20 10/27/20 09:04 11:53 17:13 WBC RBC Hgb Hct MCV MCH MCHC RDW Std Deviation RDW Coeff of Tl Plt Count MPV Immature Gran % (Auto) Neut % (Auto) Lymph % (Auto) [place] % (Auto) Eos % (Auto) Baso % (Auto) Neut # (Auto) Lymph # (Auto) [place] # (Auto) Eos # (Auto) Baso # (Auto) Immature Gran # (Auto) Sodium Potassium Chloride Carbon Dioxide Anion Gap BUN Creatinine Est Cr Clr Drug Dosing Est GFR ( Amer) Est GFR (Non-Af Amer) BUN/Creatinine Ratio Glucose POC Glucose 147 H 131 H 114 H Calcium Total Bilirubin AST ALT Alkaline Phosphatase Total Protein Albumin Globulin Albumin/Globulin Ratio 10/28/20 10/28/20 06:43 06:43 WBC 18.71 H RBC 4.05 L Hgb 12.0 L Hct 38.6 L MCV 95.3 MCH 29.6 MCHC 31.1 L RDW Std Deviation 58.6 H RDW Coeff of Tl 16.7 H Plt Count 354 MPV 9.5 Immature Gran % (Auto) 1.1 Neut % (Auto) 81.8 Lymph % (Auto) 5.6 [place] % (Auto) 10.0 Eos % (Auto) 1.3 Baso % (Auto) 0.2 Neut # (Auto) 15.29 H Lymph # (Auto) 1.05 L [place] # (Auto) 1.88 H Eos # (Auto) 0.25 Baso # (Auto) 0.03 Immature Gran # (Auto) 0.21 H Sodium 132 L Potassium 3.9 Chloride 98 Carbon Dioxide 27 Anion Gap 7.0 BUN 31 H D Creatinine 8.80 H* D Est Cr Clr Drug Dosing 12.6 Est GFR ( Amer) 7.1 Est GFR (Non-Af Amer) 6.1 BUN/Creatinine Ratio 3.5 L Glucose 159 H POC Glucose Calcium 9.9 Total Bilirubin 0.5 AST 7 L ALT 18 Alkaline Phosphatase 107 Total Protein 7.0 Albumin 2.5 L Globulin 4.5 H Albumin/Globulin Ratio 0.6 L PG Care Time/CCT Total # of Minutes Spent Total Time Spent with Patient: Total time spent is greater than 50% in coordination of care (as documented) at patient's floor/unit and/or counseling patient: Coding Level of Care Code 00360 Subseq Hosp Care Lvl 2 Diagnoses Abdominal pain R10.84 Abdominal location: generalized Insulin pump in place Z96.41 HTN (hypertension) I10 CAD (coronary artery disease) I25.10 ESRD (end stage renal disease) N18.6 Congestive heart failure I50.9 Acute ischemic colitis K55.039 (1) Abdominal pain Abdominal location: generalized Qualified Code(s): R10.84 - Generalized ab dominal pain
[2020-10-28] MEDS: NovoLOG INSULIN PUMP SCH ×4 (08:31→20:51)
[2020-10-28] MEDS: SEVELAMER HCL 800 MG TABLET PO SCH ×4 (08:31→20:50)
[2020-10-28] MEDS: metroNIDAZOLE 500 MG/100 ML BAG IV SCH ×3 (08:32→23:16)
[2020-10-28] MEDS: PANTOprazole 40 MG TAB PO SCH ×2 (08:32→20:50)
[2020-10-28] MEDS: ROSUVASTATIN CALCIUM 10 MG TAB PO SCH (08:33)
[2020-10-28] MEDS: CIPROFLOXACIN / D5W 400 MG/200 ML BAG IV SCH (08:34)
[2020-10-28] MEDS: ASPIRIN 81 MG ECTAB PO SCH (08:34)
[2020-10-28] MEDS: FUROSEMIDE 80 MG TAB PO SCH ×2 (08:34→18:06)
[2020-10-28] MEDS: CINACALCET HCL 90 MG TAB PO SCH (08:35)
[2020-10-28] MEDS: DICYCLOMINE HCL 10 MG CAP PO SCH ×4 (08:42→20:49)
[2020-10-28] MEDS: HEPARIN SOD 5,000 UNIT/0.5 ML VIAL SQ SCH ×2 (08:45→20:49)
[2020-10-28] MEDS: LABETALOL HCL 100 MG TAB PO SCH ×2 (09:29→20:49)
--- NOTE | 2020-10-28 10:49 | Nephrology Progress Note ---
Date of Service October 28, 2020 Assessment & Plan (1) ESRD (end stage renal disease): Plan: HD MWF. Rx: 4 hours 200 optiflux, 450/800, 2K. AVF functioning well. EDW 120 kg. Due to continued weight loss, Jayce is well below his EDW. Minimal UF today to encourage intravascular volume expansion. Orders for HD reviewed with nurse. 3 K bath. Medications appropriate for kidney dysfunction. BP and volume status acceptable. Metabolic profile normal. Calcitriol for sPTH. Sevelamer QAC while taking PO. (2) Abnormal CT of the abdomen: Plan: Colonoscopy showing 2 areas of relatively severe necrosis involving the cecum and proximal transverse colon consistent with ischemic colitis. Surgical consultation reviewed. No immediate intervention planned. Limited UF with HD to encourage intravascular volume expansion. Admission and Anticipated Discharge Date Admission Date: October 25, 2020 Subjective No acute events overnight. Jayce was seen and evaluated during HD today. Abdominal pain persists. N/V. Breathing comfortably. Review of Systems Review of Systems: All systems reviewed & are unremarkable except as noted in HPI & below Physical Exam Constitutional: well developed; no acute distress Eyes: no scleral abnormality and no corneal abnormality ENMT: Mouth: no oral mucosal abnormality and oral mucous membranes not dry Neck: normal visual inspection and trachea midline Respiratory: normal respiratory effort Auscultation: lungs clear to auscultation bilaterally Cardiovascular: Rate/Rhythm: regular rate Heart Sounds: normal S1, normal S2 and + murmur Extremities: + AV fistula; no edema Gastrointestinal (Abdomen): Inspection/Auscultation: + abdomen distended Percussion/Palpation: + guarding Musculoskeletal: Extremities: no cyanosis and no clubbing Skin: normal turgor; no lesions Neurologic: Motor/Sensory: no tremor and no asterixis Psychiatric: Orientation: alert and oriented x 3 Results & Data ([facility]) Vital Signs (Past 12 Hours) Vital Signs Temp Pulse Pulse Resp BP Pulse Ox 10/28/20 07:30 36.6 C 59 L 19 120/82 92 10/27/20 23:08 36.4 C L 55 L 17 110/63 92 Laboratory Results Laboratory Results - last 24 hr 10/27/20 10/27/20 10/28/20 11:53 17:13 06:43 WBC 18.71 H RBC 4.05 L Hgb 12.0 L Hct 38.6 L MCV 95.3 MCH 29.6 MCHC 31.1 L RDW Std Deviation 58.6 H RDW Coeff of Tl 16.7 H Plt Count 354 MPV 9.5 Immature Gran % (Auto) 1.1 Neut % (Auto) 81.8 Lymph % (Auto) 5.6 [place] % (Auto) 10.0 Eos % (Auto) 1.3 Baso % (Auto) 0.2 Neut # (Auto) 15.29 H Lymph # (Auto) 1.05 L [place] # (Auto) 1.88 H Eos # (Auto) 0.25 Baso # (Auto) 0.03 Immature Gran # (Auto) 0.21 H Sodium Potassium Chloride Carbon Dioxide Anion Gap BUN Creatinine Est Cr Clr Drug Dosing Est GFR ( Amer) Est GFR (Non-Af Amer) BUN/Creatinine Ratio Glucose POC Glucose 131 H 114 H Calcium Total Bilirubin AST ALT Alkaline Phosphatase Total Protein Albumin Globulin Albumin/Globulin Ratio 10/28/20 06:43 WBC RBC Hgb Hct MCV MCH MCHC RDW Std Deviation RDW Coeff of Tl Plt Count MPV Immature Gran % (Auto) Neut % (Auto) Lymph % (Auto) [place] % (Auto) Eos % (Auto) Baso % (Auto) Neut # (Auto) Lymph # (Auto) [place] # (Auto) Eos # (Auto) Baso # (Auto) Immature Gran # (Auto) Sodium 132 L Potassium 3.9 Chloride 98 Carbon Dioxide 27 Anion Gap 7.0 BUN 31 H D Creatinine 8.80 H* D Est Cr Clr Drug Dosing 12.6 Est GFR ( Amer) 7.1 Est GFR (Non-Af Amer) 6.1 BUN/Creatinine Ratio 3.5 L Glucose 159 H POC Glucose Calcium 9.9 Total Bilirubin 0.5 AST 7 L ALT 18 Alkaline Phosphatase 107 Total Protein 7.0 Albumin 2.5 L Globulin 4.5 H Albumin/Globulin Ratio 0.6 L PG Care Time/CCT Total # of Minutes Spent Total Time Spent with Patient: Total time spent is greater than 50% in coordination of care (as documented) at patient's floor/unit and/or counseling patient: Coding Level of Care Code 69088 Subseq Hosp Care Lvl 3 Diagnoses ESRD (end stage renal disease) N18.[address] of the abdomen R93.5
--- NOTE | 2020-10-28 11:43 | Gastroenterology Progress Note ---
Date of Service October 28, 2020 Assessment & Plan (1) Ischemic colitis: Plan: Continue narcotic analgesics for pain relief. Clear liquids po only. Continue broad spectrum antibiotics x total 2 wks. Agree with surgery opinion to consider transfer as pt may need colon resection if does not improve. No further GI procedures or tests planned. Would defer management of ischemic colitis to surgery. Admission and Anticipated Discharge Date Admission Date: October 25, 2020 Supervising Physician Co-Signing Physician Notes I saw and evaluated the patient. His pathology did show evidence of ischemic changes consistent with the initial diagnosis of ischemic colitis. Unfortunately given his comorbidities he has been slow to recover and notes having continued discomfort in his right side. Unfortunately he does not appear to be improving with antibiotic coverage alone and due to his renal failure and dialysis dependency IV hydration has been difficult. Recommendations Continue broad-spectrum antibiotic coverage Consider IV hydration as patient may be dehydrated Consider referral to a tertiary center if patient not a candidate for surgery at [facility] Please call with any additional questions concerns, Subjective No acute events overnight. Jayce was seen and evaluated during HD today. Abdominal pain persists. N/V. Breathing comfortably. Review of Systems Review of Systems: ROS: Gen: + weakness, + weight loss Eyes: No eye redness, or pain, no recent vision changes Resp: No SOB, no cough Cardio: No palpitations/irregular beats, no chest pain GI: See HPI, otherwise (-) : Denies pain on urination Skin: No jaundice, itching or new rashes Physical Exam Physical Exam: Initially sitting up in bed. AAO, very cooperative, good eye contact. When asked how he is emotionally, replied, "disgusted." Main concern is abdomen pain. Constitutional: WD/WN, vitals as above (appears tired. very uncomfortable currently.) Eyes: PERRL, conjunctivae normal, anicteric sclerae ENMT: external ear and nose normal, oropharynx normal Neck: trachea midline, no thyromegaly Respiratory: normal respiratory effort, lungs clear to auscultation Cardiovascular: RRR, no murmur, no edema Gastrointestinal (Abdomen): Inspection/Auscultation: abdomen normal to inspection Very tender over the entire abd; soft; obese but no clear distention. Hypoactive BS present Skin: no rashes, warm and dry Neurologic: PERRL, EOMI, accommodation nl, no face palsy, no dysarthria Psychiatric: A+Ox3, euthymic affect Lymphatic: no cervical or axillary lymphadenopathy Results & Data ([facility]) Vital Signs (Past 12 Hours) Vital Signs Temp Pulse Pulse Resp BP BP Pulse Ox 10/28/20 11:20 56 L 126/64 10/28/20 11:00 59 L 142/72 H 10/28/20 10:40 58 L 130/63 10/28/20 10:19 70 151/82 H 10/28/20 10:15 36.6 C 58 L 10/28/20 07:30 36.6 C 59 L 19 120/82 92 Laboratory Results WBC 18, Hb 12, Hct 38, Plts 354, Na 132, K 3.9, BUN 31, Cr 8.8. Diagnostic Findings CT with transverse colon narrowing. Colonoscopy with severe ischemic colitis at the Cecum and transverse colon.
--- NOTE | 2020-10-28 11:58 | Surgery Progress Note ---
Date of Service October 28, 2020 Assessment & Plan Admission and Anticipated Discharge Date Admission Date: October 25, 2020 Subjective Patient is currently on dialysis He continues to complain of lower abdominal pain and nausea This does not seem to be related to his right colon or transverse colon He is receiving IV pain medication His vital signs are stable with normal heart rate His white blood cell count continues to be elevated He does not have significant tenderness over the areas of colitis I did review his CT scan with vascular surgery-he has relatively diffuse severe peripheral vascular disease Unfortunately the only thing we can offer the patient is an emergency operation if he develops peritonitis There is some consideration of discussing his case with [facility] Review of Systems Review of Systems: All systems reviewed & are unremarkable except as noted in HPI & below Physical Exam Constitutional: well nourished; no acute distress Eyes: + anicteric sclerae Respiratory: normal respiratory effort; no respiratory distress Cardiovascular: Rate/Rhythm: regular rate Gastrointestinal (Abdomen): Inspection/Auscultation: abdomen not distended Percussion/Palpation: abdomen nontender Musculoskeletal: Head/Neck/Chest: head atraumatic Skin: no rashes, warm and dry Neurologic: awake Psychiatric: Orientation: alert Results & Data ([facility]) Vital Signs (Past 12 Hours) Vital Signs Temp Pulse Pulse Resp BP BP Pulse Ox 10/28/20 11:20 56 L 126/64 10/28/20 11:00 59 L 142/72 H 10/28/20 10:40 58 L 130/63 10/28/20 10:19 70 151/82 H 10/28/20 10:15 36.6 C 58 L 10/28/20 07:30 36.6 C 59 L 19 120/82 92 PG Care Time/CCT Total # of Minutes Spent Total Time Spent with Patient: Total time spent is greater than 50% in coordination of care (as documented) at patient's floor/unit and/or counseling patient: Coding Level of Care Code 74480 Inpt Consult Level 4
[2020-10-28] MEDS: PROMETHAZINE HCL 25 MG/20 ML UDP PO PRN (17:41)
[2020-10-28] MEDS ORDERED: HYDROmorphone INJ 0.5 MG/0.5 ML SYR IV PRN (17:50)
[2020-10-29] MEDS ORDERED: HYDROmorphone INJ 0.5 MG/0.5 ML SYR IV PRN (03:03)
[2020-10-29] MEDS: HYDROmorphone INJ 0.5 MG/0.5 ML SYR IV PRN ×2 (03:12→14:13)
[2020-10-29] MEDS: ACETAMINOPHEN 1,000 MG/100 ML VIAL IV SCH ×3 (05:33→21:07)
[2020-10-29 08:55] LABS: Basophils # (auto) 0.03 K/uL (0-0.2); Basophils % (auto) 0.2 %; Eosinophils # (auto) 0.35 K/uL (0-0.5); Hematocrit (blood only) 39.8 % (42-52); Hemoglobin 12.4 g/dL (14.0-18.0); Immature Granulocytes # (auto) 0.33 K/uL (0.00-0.02); Immature Granulocytes % (auto) 1.8 %; Lymphocytes # (auto) 1.34 K/uL (1.2-3.4); Lymphocytes % (auto) 7.5 %; Mean Corpuscular Hemoglobin 29.5 pg (25-34); Mean Corpuscular Hgb Conc 31.2 g/dL (32-36); Mean Corpuscular Volume 94.8 fL (80-100); Mean Platelet Volume 9.5 fL (7.4-10.4); Monocytes # (auto) 1.62 K/uL (0.11-0.59); Neutrophils # (auto) 14.25 K/uL (1.4-6.5); Neutrophils % (auto) 79.5 %; Nucleated RBC # (auto) 0.06 K/uL (0-0); Nucleated RBC % (auto) 0.4 %; Platelet Count 334 K/uL (130-400); RDW Coefficient of Variation 17.1 % (11.5-14.5); RDW Standard Deviation 58.7 fL (36.4-46.3); White Blood Count 17.92 K/uL (4.8-10.8)
[2020-10-29] MEDS: SEVELAMER HCL 800 MG TABLET PO SCH ×4 (09:30→21:09)
[2020-10-29] MEDS: DICYCLOMINE HCL 10 MG CAP PO SCH ×4 (09:31→21:09)
[2020-10-29] MEDS: HEPARIN SOD 5,000 UNIT/0.5 ML VIAL SQ SCH ×2 (09:31→21:10)
[2020-10-29] MEDS: PANTOprazole 40 MG TAB PO SCH ×2 (09:31→21:10)
[2020-10-29] MEDS: LABETALOL HCL 100 MG TAB PO SCH ×2 (09:31→21:10)
[2020-10-29 09:32] LABS: Albumin Globulin Ratio 0.5 (0.9-2); Albumin Level 2.4 gm/dl (3.4-5.0); BUN Creatinine Ratio 2.6 (10-20); Bilirubin,Total 0.5 mg/dl (0.2-1); Calcium 9.6 mg/dl (8.5-10.1); Creatinine Clr Calc Pharmacy 16.8 ml/min; Est GFR (Non-African American) 8.6 ml/min; Globulin 4.9 gm/dl (2.5-4.0); Potassium 4.2 mmol/L (3.5-5.1); Total Protein 7.3 gm/dl (6.4-8.2)
[2020-10-29] MEDS: ROSUVASTATIN CALCIUM 10 MG TAB PO SCH (09:32)
[2020-10-29] MEDS: ASPIRIN 81 MG ECTAB PO SCH (09:32)
[2020-10-29] MEDS: NovoLOG INSULIN PUMP SCH ×4 (09:33→21:06)
[2020-10-29] MEDS: FUROSEMIDE 80 MG TAB PO SCH ×2 (09:33→17:14)
[2020-10-29] MEDS: CINACALCET HCL 90 MG TAB PO SCH (09:33)
[2020-10-29] MEDS: CIPROFLOXACIN / D5W 400 MG/200 ML BAG IV SCH (09:34)
[2020-10-29] MEDS: metroNIDAZOLE 500 MG/100 ML BAG IV SCH ×2 (09:34→16:10)
--- NOTE | 2020-10-29 09:41 | Hospitalist Progress Note ---
Date of Service October 29, 2020 Assessment & Plan (1) Acute ischemic colitis: Plan: Symptomatically more or less the same; noted white cell count better which is some positive sign; as noted by surgery was not accepted by [facility] At present cautious watchful management; surgery follow-up greatly appreciated; defer diet advance to them (2) Insulin pump in place: Plan: In general sugars acceptable, no overt hypoglycemia (3) HTN (hypertension): Plan: Acceptable (4) CAD (coronary artery disease): Plan: No current anginafollow clinically (5) ESRD (end stage renal disease): Plan: Nephrology following, Saturday dialysis (6) Congestive heart failure: Plan: 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; clinically well compensatedfluid removal with dialysis otherwise no change Admission and Anticipated Discharge Date Admission Date: October 25, 2020 Subjective Follow-up of abdominal painno change compared to yesterday; in the morning during morning rounds he seems to be doing better; tends to be worse later during the day Physical Exam Physical Exam: Constitutional and general: No acute distress, looks biologic age Head and face: No puffiness, atraumatic Eyes: No scleral icterus, extraocular movements normal Neck: Supple, no JVD Musculoskeletal: No acute joint swelling, no bony abnormalities Skin/dermatologic/integument: No rash, no purpura Hematologic and lymphatic: pallor +-Mild, no petechia Gastrointestinal/abdomen: Mildly distended, soft-continues to be non peritoneal by my evaluation Neurologic: Cranial nerves intact, nonfocal Psychiatry: Awake, alert, pleasant, communicative Cardiovascular: Heart rhythm regular, no rub, ESM at base soft, no gallop Respiratory: Chest movements equal, no use of accessory muscles, no adventitious sounds Extremities: No significant edema, no cyanosis Results & Data Results & Data ([facility]) Vital Signs (Past 12 Hours) Vital Signs Temp Pulse Pulse Resp BP BP Pulse Ox 10/29/20 07:29 36.5 C 56 L 16 108/60 97 10/28/20 23:19 36.3 C L 57 L 18 125/71 95 Laboratory Results Laboratory Results - last 24 hr 10/28/20 10/28/20 10/29/20 11:50 17:24 05:59 WBC RBC Hgb Hct MCV MCH MCHC RDW Std Deviation RDW Coeff of Tl Plt Count MPV Immature Gran % (Auto) Neut % (Auto) Lymph % (Auto) [place] % (Auto) Eos % (Auto) Baso % (Auto) Neut # (Auto) Lymph # (Auto) [place] # (Auto) Eos # (Auto) Baso # (Auto) Immature Gran # (Auto) Absolute Nucleated RBC Nucleated RBC % (auto) Sodium Potassium Chloride Carbon Dioxide Anion Gap BUN Creatinine Est Cr Clr Drug Dosing Est GFR ( Amer) Est GFR (Non-Af Amer) BUN/Creatinine Ratio Glucose POC Glucose 89 161 H 115 H Calcium Total Bilirubin AST ALT Alkaline Phosphatase Total Protein Albumin Globulin Albumin/Globulin Ratio 10/29/20 10/29/20 10/29/20 08:06 08:37 08:37 WBC 17.92 H RBC 4.20 L Hgb 12.4 L Hct 39.8 L MCV 94.8 MCH 29.5 MCHC 31.2 L RDW Std Deviation 58.7 H RDW Coeff of Tl 17.1 H Plt Count 334 MPV 9.5 Immature Gran % (Auto) 1.8 Neut % (Auto) 79.5 Lymph % (Auto) 7.5 [place] % (Auto) 9.0 Eos % (Auto) 2.0 Baso % (Auto) 0.2 Neut # (Auto) 14.25 H Lymph # (Auto) 1.34 [place] # (Auto) 1.62 H Eos # (Auto) 0.35 Baso # (Auto) 0.03 Immature Gran # (Auto) 0.33 H Absolute Nucleated RBC 0.06 H Nucleated RBC % (auto) 0.4 Sodium 133 L Potassium 4.2 Chloride 101 Carbon Dioxide 25 Anion Gap 7.0 BUN 17 Creatinine 6.60 H* D Est Cr Clr Drug Dosing 16.8 Est GFR ( Amer) 10.0 Est GFR (Non-Af Amer) 8.6 BUN/Creatinine Ratio 2.6 L Glucose 115 H POC Glucose 109 H Calcium 9.6 Total Bilirubin 0.5 AST 5 L ALT 16 Alkaline Phosphatase 117 Total Protein 7.3 Albumin 2.4 L Globulin 4.9 H Albumin/Globulin Ratio 0.5 L PG Care Time/CCT Total # of Minutes Spent Total Time Spent with Patient: Total time spent is greater than 50% in coordination of care (as documented) at patient's floor/unit and/or counseling patient: Coding Level of Care Code 60376 Subseq Hosp Care Lvl 3 Diagnoses Acute ischemic colitis K55.[address] Z96.41 HTN (hypertension) I10 CAD (coronary artery disease) I25.10 ESRD (end stage renal disease) N18.6 Congestive heart failure I50.42 Heart failure type: combined systolic and diastolic Heart failure chronicity: chronic (1) Congestive heart failure Heart failure type: combined systolic and diastolic Heart failure chronicity: chronic Qualified Code(s): I50.42 - Chronic combined systolic (congestive) and diastolic (congestive) heart failure
--- NOTE | 2020-10-29 12:09 | Nephrology Progress Note ---
Date of Service October 29, 2020 Assessment & Plan (1) ESRD (end stage renal disease): Plan: HD MWF. Rx: 4 hours 200 optiflux, 450/800, 2K. AVF functioning well. EDW 120 kg. Jayce has remained well below EDW. Minimal UF with HD yesterday to encourage intravascular volume expansion. Volume status acceptable. Clearance acceptable with HD. Electrolytes normal. No additional HD today. Medications appropriate for kidney dysfunction. Calcitriol for sPTH. Sevelamer QAC while taking PO. (2) Abnormal CT of the abdomen: Plan: Colonoscopy showing 2 areas of relatively severe necrosis involving the cecum and proximal transverse colon consistent with ischemic colitis. Surgical consultation reviewed. No immediate intervention planned. Limited UF with HD to encourage intravascular volume expansion. (3) Ischemic colitis: Plan: Mid transverse colon suggestive of SMA distribution. Consider benefit of angiography and vascular intervention if no improvement with conservative management. Some improvement in symptoms noted this AM. Minimal UF with HD to encourage volume expansion. IV cipro and flagyl are being provided. Surgery following. Admission and Anticipated Discharge Date Admission Date: October 25, 2020 Subjective No acute events overnight. Resting comfortably in bedside chair this AM. Abdominal discomfort improved. Tolerated HD yesterday without complications. Taking liquids diet by mouth. +BM. Review of Systems Review of Systems: All systems reviewed & are unremarkable except as noted in HPI & below Physical Exam Constitutional: well developed; no acute distress Eyes: no scleral abnormality and no corneal abnormality ENMT: Mouth: no oral mucosal abnormality and oral mucous membranes not dry Neck: normal visual inspection and trachea midline Respiratory: normal respiratory effort Auscultation: lungs clear to auscultation bilaterally Cardiovascular: Rate/Rhythm: regular rate Heart Sounds: normal S1, normal S2 and + murmur Extremities: + AV fistula; no edema Gastrointestinal (Abdomen): Inspection/Auscultation: + abdomen distended Percussion/Palpation: + guarding Musculoskeletal: Extremities: no cyanosis and no clubbing Skin: normal turgor; no lesions Neurologic: Motor/Sensory: no tremor and no asterixis Psychiatric: Orientation: alert and oriented x 3 Results & Data ([facility]) Vital Signs (Past 12 Hours) Vital Signs Temp Pulse Resp BP Pulse Ox 10/29/20 07:29 36.5 C 56 L 16 108/60 97 Laboratory Results Laboratory Results - last 24 hr 08/10/29/20 10/29/20 17:24 05:59 08:06 WBC RBC Hgb Hct MCV MCH MCHC RDW Std Deviation RDW Coeff of Tl Plt Count MPV Immature Gran % (Auto) Neut % (Auto) Lymph % (Auto) [place] % (Auto) Eos % (Auto) Baso % (Auto) Neut # (Auto) Lymph # (Auto) [place] # (Auto) Eos # (Auto) Baso # (Auto) Immature Gran # (Auto) Absolute Nucleated RBC Nucleated RBC % (auto) Sodium Potassium Chloride Carbon Dioxide Anion Gap BUN Creatinine Est Cr Clr Drug Dosing Est GFR ( Amer) Est GFR (Non-Af Amer) BUN/Creatinine Ratio Glucose POC Glucose 161 H 115 H 109 H Calcium Total Bilirubin AST ALT Alkaline Phosphatase Total Protein Albumin Globulin Albumin/Globulin Ratio 10/29/20 10/29/20 08:37 08:37 WBC 17.92 H RBC 4.20 L Hgb 12.4 L Hct 39.8 L MCV 94.8 MCH 29.5 MCHC 31.2 L RDW Std Deviation 58.7 H RDW Coeff of Tl 17.1 H Plt Count 334 MPV 9.5 Immature Gran % (Auto) 1.8 Neut % (Auto) 79.5 Lymph % (Auto) 7.5 [place] % (Auto) 9.0 Eos % (Auto) 2.0 Baso % (Auto) 0.2 Neut # (Auto) 14.25 H Lymph # (Auto) 1.34 [place] # (Auto) 1.62 H Eos # (Auto) 0.35 Baso # (Auto) 0.03 Immature Gran # (Auto) 0.33 H Absolute Nucleated RBC 0.06 H Nucleated RBC % (auto) 0.4 Sodium 133 L Potassium 4.2 Chloride 101 Carbon Dioxide 25 Anion Gap 7.0 BUN 17 Creatinine 6.60 H* D Est Cr Clr Drug Dosing 16.8 Est GFR ( Amer) 10.0 Est GFR (Non-Af Amer) 8.6 BUN/Creatinine Ratio 2.6 L Glucose 115 H POC Glucose Calcium 9.6 Total Bilirubin 0.5 AST 5 L ALT 16 Alkaline Phosphatase 117 Total Protein 7.3 Albumin 2.4 L Globulin 4.9 H Albumin/Globulin Ratio 0.5 L PG Care Time/CCT Total # of Minutes Spent Total Time Spent with Patient: Total time spent is greater than 50% in coordination of care (as documented) at patient's floor/unit and/or counseling patient: Coding Level of Care Code 86278 Subseq Hosp Care Lvl 3 Diagnoses ESRD (end stage renal disease) N18.[address] of the abdomen R93.5 Ischemic colitis K55.9
--- NOTE | 2020-10-29 12:15 | Surgery Progress Note ---
Date of Service October 29, 2020 Assessment & Plan (1) Acute ischemic colitis: Plan: Improved on antibiotics and resuscitation Abdomen benign Loose stools c/w ischemic colitis Will follow Admission and Anticipated Discharge Date Admission Date: October 25, 2020 Subjective Hospital Day #5 Feeling better today Pain improved WBC slightly improved No fevers or chills HD M/W/F Review of Systems Constitutional: + weakness; no fever, no chills and no anorexia Respiratory: no dyspnea Cardiovascular: no chest pain Gastrointestinal: + abdominal pain and + change in bowel habits (diarrhea); no nausea and no vomiting Genitourinary: no dysuria Integumentary: + rash Neurologic: no localized weakness Physical Exam Constitutional: well developed and well nourished; no acute distress Neck: trachea midline Respiratory: normal respiratory effort, lungs clear to auscultation no respiratory distress Cardiovascular: RRR, no murmur, no edema Gastrointestinal (Abdomen): Inspection/Auscultation: abdomen normal to inspection, normal bowel sounds and + significant pannus; no visible herniation Percussion/Palpation: abdomen soft; abdomen nontender, no guarding and abdomen not rigid Musculoskeletal: Head/Neck/Chest: normocephalic and head atraumatic Skin: no rashes, warm and dry Psychiatric: Orientation: alert and oriented x 3 Results & Data ([facility]) Vital Signs (Past 12 Hours) Vital Signs Temp Pulse Resp BP Pulse Ox 10/29/20 07:29 36.5 C 56 L 16 108/60 97
[2020-10-30] MEDS: metroNIDAZOLE 500 MG/100 ML BAG IV SCH ×3 (01:07→16:43)
[2020-10-30] MEDS: ACETAMINOPHEN 1,000 MG/100 ML VIAL IV SCH ×2 (07:22→13:46)
[2020-10-30 08:41] LABS: Basophils # (auto) 0.04 K/uL (0-0.2); Basophils % (auto) 0.2 %; Eosinophils # (auto) 0.35 K/uL (0-0.5); Eosinophils % (auto) 1.8 %; Hematocrit (blood only) 38.4 % (42-52); Hemoglobin 11.8 g/dL (14.0-18.0); Immature Granulocytes # (auto) 0.46 K/uL (0.00-0.02); Immature Granulocytes % (auto) 2.3 %; Lymphocytes # (auto) 1.16 K/uL (1.2-3.4); Lymphocytes % (auto) 5.8 %; Mean Corpuscular Hemoglobin 29.1 pg (25-34); Mean Corpuscular Hgb Conc 30.7 g/dL (32-36); Mean Corpuscular Volume 94.6 fL (80-100); Mean Platelet Volume 9.4 fL (7.4-10.4); Monocytes # (auto) 1.73 K/uL (0.11-0.59); Monocytes % (auto) 8.7 %; Neutrophils # (auto) 16.24 K/uL (1.4-6.5); Neutrophils % (auto) 81.2 %; Nucleated RBC # (auto) 0.07 K/uL (0-0); Nucleated RBC % (auto) 0.4 %; Platelet Count 357 K/uL (130-400); RDW Coefficient of Variation 17.3 % (11.5-14.5); RDW Standard Deviation 58.9 fL (36.4-46.3); Red Blood Count 4.06 M/uL (4.7-6.1); White Blood Count 19.98 K/uL (4.8-10.8)
[2020-10-30] MEDS: NovoLOG INSULIN PUMP SCH ×4 (09:16→21:43)
[2020-10-30] MEDS: SEVELAMER HCL 800 MG TABLET PO SCH ×2 (09:17→12:25)
[2020-10-30] MEDS: CALCITRIOL 0.25 MCG CAPSULE PO SCH (09:17)
[2020-10-30] MEDS: PANTOprazole 40 MG TAB PO SCH ×2 (09:18→21:33)
[2020-10-30] MEDS: ROSUVASTATIN CALCIUM 10 MG TAB PO SCH (09:19)
[2020-10-30] MEDS: DICYCLOMINE HCL 10 MG CAP PO SCH ×4 (09:19→21:32)
[2020-10-30] MEDS: FUROSEMIDE 80 MG TAB PO SCH ×2 (09:20→16:44)
[2020-10-30] MEDS: ASPIRIN 81 MG ECTAB PO SCH (09:20)
[2020-10-30] MEDS: LABETALOL HCL 100 MG TAB PO SCH ×2 (09:20→21:33)
[2020-10-30] MEDS: CINACALCET HCL 90 MG TAB PO SCH (09:20)
[2020-10-30] MEDS: HEPARIN SOD 5,000 UNIT/0.5 ML VIAL SQ SCH ×2 (09:20→21:33)
[2020-10-30] MEDS: CIPROFLOXACIN / D5W 400 MG/200 ML BAG IV SCH (09:43)
[2020-10-30] MEDS: HYDROmorphone INJ 0.5 MG/0.5 ML SYR IV PRN (09:48)
--- NOTE | 2020-10-30 10:32 | Surgery Progress Note ---
Date of Service October 30, 2020 Assessment & Plan (1) Acute ischemic colitis: Plan: clinically not much different con't abx WBC a little higher no indications for surgical intervention at this point Admission and Anticipated Discharge Date Admission Date: October 25, 2020 Subjective feels a little worse this AM no distress but pain somewhat worse subjectively exam with minimal tenderness Review of Systems Constitutional: no fever, no chills and no anorexia Respiratory: no cough and no dyspnea Cardiovascular: no chest pain Gastrointestinal: + abdominal pain and + change in bowel habits; no nausea and no vomiting Musculoskeletal: no back pain Physical Exam Constitutional: well developed, well nourished and + obese Eyes: PERRL, conjunctivae normal, anicteric sclerae ENMT: external ear and nose normal, oropharynx normal Neck: trachea midline Respiratory: normal respiratory effort, lungs clear to auscultation Cardiovascular: RRR, no murmur, no edema Gastrointestinal (Abdomen): Inspection/Auscultation: abdomen normal to inspection and normal bowel sounds; abdomen not distended Percussion/Palpation: + abdomen tender and abdomen soft; no guarding and abdomen not rigid Musculoskeletal: Head/Neck/Chest: normocephalic and head atraumatic Skin: no rashes, warm and dry Results & Data ([facility]) Vital Signs (Past 12 Hours) Vital Signs Temp Pulse Pulse Resp BP BP Pulse Ox 10/30/20 07:38 36.9 C 66 16 116/65 92 10/29/20 23:32 36.8 C 62 17 116/66 94
--- NOTE | 2020-10-30 12:05 | Hospitalist Progress Note ---
Date of Service October 30, 2020 Assessment & Plan (1) Acute ischemic colitis: Plan: Symptomatically somewhat worse; WBC noted; surgery follow-up noted and appreciatedthey do not feel surgery indicated at present; in such case, continued conservative management; however, continue to hold Plavix; keep diet the same given current status (2) Insulin pump in place: Plan: sugars good range (3) HTN (hypertension): Plan: Acceptable (4) CAD (coronary artery disease): Plan: No current anginafollow clinically (5) ESRD (end stage renal disease): Plan: Nephrology following, Saturday dialysis (6) Congestive heart failure: Plan: 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 felt well; feels worse this AM after breakfast and taking a.m. meds Physical Exam Physical Exam: Constitutional and general: No acute distress, looks biologic age Head and face: No puffiness, atraumatic Eyes: No scleral icterus, extraocular movements normal Neck: Supple, no JVD Musculoskeletal: No acute joint swelling, no bony abnormalities Skin/dermatologic/integument: No rash, no purpura Hematologic and lymphatic: pallor +-Mild, no petechia Gastrointestinal/abdomen: Mildly distended, soft-no overt peritoneal signs Neurologic: Cranial nerves intact, nonfocal Psychiatry: Awake, alert, pleasant, communicative Cardiovascular: Heart rhythm regular, no rub, ESM at base soft, no gallop Respiratory: Chest movements equal, no use of accessory muscles, no adventitious sounds Extremities: No significant edema, no cyanosis Results & Data Results & Data ([facility]) Vital Signs (Past 12 Hours) Vital Signs Temp Pulse Resp BP Pulse Ox 10/30/20 07:38 36.9 C 66 16 116/65 92 Laboratory Results Laboratory Results - last 24 hr 10/29/20 10/29/20 10/30/20 12:17 17:10 08:08 WBC 19.98 H RBC 4.06 L Hgb 11.8 L Hct 38.4 L MCV 94.6 MCH 29.1 MCHC 30.7 L RDW Std Deviation 58.9 H RDW Coeff of Tl 17.3 H Plt Count 357 MPV 9.4 Immature Gran % (Auto) 2.3 Neut % (Auto) 81.2 Lymph % (Auto) 5.8 [place] % (Auto) 8.7 Eos % (Auto) 1.8 Baso % (Auto) 0.2 Neut # (Auto) 16.24 H Lymph # (Auto) 1.16 L [place] # (Auto) 1.73 H Eos # (Auto) 0.35 Baso # (Auto) 0.04 Immature Gran # (Auto) 0.46 H Absolute Nucleated RBC 0.07 H Nucleated RBC % (auto) 0.4 POC Glucose 71 140 H 10/30/20 08:11 WBC RBC Hgb Hct MCV MCH MCHC RDW Std Deviation RDW Coeff of Tl Plt Count MPV Immature Gran % (Auto) Neut % (Auto) Lymph % (Auto) [place] % (Auto) Eos % (Auto) Baso % (Auto) Neut # (Auto) Lymph # (Auto) [place] # (Auto) Eos # (Auto) Baso # (Auto) Immature Gran # (Auto) Absolute Nucleated RBC Nucleated RBC % (auto) POC Glucose 135 H PG Care Time/CCT Total # of Minutes Spent Total Time Spent with Patient: Total time spent is greater than 50% in coordination of care (as documented) at patient's floor/unit and/or counseling patient: Coding Level of Care Code 68175 Subseq Hosp Care Lvl 2 Diagnoses Acute ischemic colitis K55.[address] Z96.41 HTN (hypertension) I10 CAD (coronary artery disease) I25.10 ESRD (end stage renal disease) N18.6 Congestive heart failure I50.42 Heart failure type: combined systolic and diastolic Heart failure chronicity: chronic (1) Congestive heart failure Heart failure type: combined systolic and diastolic Heart failure chronicity: chronic Qualified Code(s): I50.42 - Chronic combined systolic (congestive) and diastolic (congestive) heart failure
--- NOTE | 2020-10-30 12:56 | Nephrology Progress Note ---
Date of Service October 30, 2020 Assessment & Plan (1) ESRD (end stage renal disease): Plan: HD MWF. Rx: 4 hours 200 optiflux, 450/800, 2K. AVF functioning well. EDW 120 kg. Jayce has remained well below EDW. Weights will be monitored with bedside scale. Minimal UF with HD to encourage intravascular volume expansion. Volume status acceptable. BP appropriate. Clearance acceptable with HD. Electrolytes normal. No additional HD today. Anticipate next treatment tomorrow. Medications appropriate for kidney dysfunction. Calcitriol for sPTH. Sevelamer QAC held due to poor PO intake. (2) Abnormal CT of the abdomen: Plan: Colonoscopy showing 2 areas of relatively severe necrosis involving the cecum and proximal transverse colon consistent with ischemic colitis. Surgical consultation reviewed. No immediate intervention planned. Limited UF with HD to encourage intravascular volume expansion. (3) Ischemic colitis: Plan: Surgery following. Per surgery note, the case was reviewed with vascular surgery. IV cipro and flagyl are being provided. Admission and Anticipated Discharge Date Admission Date: October 25, 2020 Subjective Symptoms improved overnight but abdominal discomfort and nausea worse later in the morning. No fevers or chills. +BM. No melena or hematochezia. WBC increased. Jayce is breathing comfortably. Cream of wheat for breakfast. Appetite decreased. Review of Systems Review of Systems: All systems reviewed & are unremarkable except as noted in HPI & below Physical Exam Constitutional: well developed; no acute distress Eyes: no scleral abnormality and no corneal abnormality ENMT: Mouth: no oral mucosal abnormality and oral mucous membranes not dry Neck: normal visual inspection and trachea midline Respiratory: normal respiratory effort Auscultation: lungs clear to auscultation bilaterally Cardiovascular: Rate/Rhythm: regular rate Heart Sounds: normal S1, normal S2 and + murmur Extremities: + AV fistula; no edema Gastrointestinal (Abdomen): Inspection/Auscultation: + abdomen distended Percussion/Palpation: + guarding Musculoskeletal: Extremities: no cyanosis and no clubbing Skin: normal turgor; no lesions Neurologic: Motor/Sensory: no tremor and no asterixis Psychiatric: Orientation: alert and oriented x 3 Results & Data ([facility]) Vital Signs (Past 12 Hours) Vital Signs Temp Pulse Resp BP Pulse Ox 10/30/20 07:38 36.9 C 66 16 116/65 92 Laboratory Results Laboratory Results - last 24 hr 10/29/20 10/30/20 10/30/20 17:10 08:08 08:11 WBC 19.98 H RBC 4.06 L Hgb 11.8 L Hct 38.4 L MCV 94.6 MCH 29.1 MCHC 30.7 L RDW Std Deviation 58.9 H RDW Coeff of Tl 17.3 H Plt Count 357 MPV 9.4 Immature Gran % (Auto) 2.3 Neut % (Auto) 81.2 Lymph % (Auto) 5.8 Wells % (Auto) 8.7 Eos % (Auto) 1.8 Baso % (Auto) 0.2 Neut # (Auto) 16.24 H Lymph # (Auto) 1.16 L Wells # (Auto) 1.73 H Eos # (Auto) 0.35 Baso # (Auto) 0.04 Immature Gran # (Auto) 0.46 H Absolute Nucleated RBC 0.07 H Nucleated RBC % (auto) 0.4 POC Glucose 140 H 135 H 10/30/20 12:08 WBC RBC Hgb Hct MCV MCH MCHC RDW Std Deviation RDW Coeff of Tl Plt Count MPV Immature Gran % (Auto) Neut % (Auto) Lymph % (Auto) Wells % (Auto) Eos % (Auto) Baso % (Auto) Neut # (Auto) Lymph # (Auto) Wells # (Auto) Eos # (Auto) Baso # (Auto) Immature Gran # (Auto) Absolute Nucleated RBC Nucleated RBC % (auto) POC Glucose 197 H PG Care Time/CCT Total # of Minutes Spent Total Time Spent with Patient: Total time spent is greater than 50% in coordination of care (as documented) at patient's floor/unit and/or counseling patient: Coding Level of Care Code 29246 Subseq Hosp Care Lvl 3 Diagnoses ESRD (end stage renal disease) N18.[address] of the abdomen R93.5 Ischemic colitis K55.9
[2020-10-31] MEDS: metroNIDAZOLE 500 MG/100 ML BAG IV SCH ×3 (00:22→16:48)
--- NOTE | 2020-10-31 07:23 | Pharmacy Report ---
Pharmacy Glycemic Sign Off Nt - Date of Service October 31, 2020 - Assessment & Plan ASSESSMENT: * Pharmacy was consulted by Dr. Ornelas on 10/25/20 for glycemic control and to write orders per [facility] inpatient glycemic control protocol. * Patient has been utilizing home insulin pump since admission to maintain blood glucose * BSGs ranging 71-197 mg/dL over the past 48 hours * Regimen has not required any adjustments since admission * Do not anticipate further changes in patient status that would quickly deteriorate glycemic control (i.e. patient to be NPO for upcoming procedure, steroids tapering, starting tube feedings, etc). * Please see recommendations for outpatient antidiabetic regimen below. PLAN FOR INPATIENT GLYCEMIC CONTROL: No changes needed to current regimen. * Continue outpatient insulin pump * Pharmacy is signing off of glycemic consult and will no longer be making adjustments to inpatient regimen. Please feel free to re-consult if needed. Thank you. DISCHARGE RECOMMENDATIONS: * A1c 6.9% in May 2020. This is likely unreliable in a patient with ESRD. Continue outpatient insulin pump upon discharge.
[2020-10-31] MEDS: ROSUVASTATIN CALCIUM 10 MG TAB PO SCH (07:30)
[2020-10-31] MEDS: PANTOprazole 40 MG TAB PO SCH ×3 (07:30→21:00)
[2020-10-31] MEDS: HEPARIN SOD 5,000 UNIT/0.5 ML VIAL SQ SCH ×2 (07:31→20:43)
[2020-10-31] MEDS: DICYCLOMINE HCL 10 MG CAP PO SCH ×5 (07:33→20:59)
[2020-10-31] MEDS: CINACALCET HCL 90 MG TAB PO SCH (07:33)
[2020-10-31] MEDS: FUROSEMIDE 80 MG TAB PO SCH ×2 (07:34→16:48)
[2020-10-31] MEDS: ASPIRIN 81 MG ECTAB PO SCH (07:34)
[2020-10-31 08:44] LABS: Basophils # (auto) 0.04 K/uL (0-0.2); Basophils % (auto) 0.2 %; Eosinophils # (auto) 0.32 K/uL (0-0.5); Eosinophils % (auto) 1.7 %; Hematocrit (blood only) 36.9 % (42-52); Hemoglobin 11.6 g/dL (14.0-18.0); Immature Granulocytes # (auto) 0.67 K/uL (0.00-0.02); Immature Granulocytes % (auto) 3.5 %; Lymphocytes # (auto) 1.24 K/uL (1.2-3.4); Lymphocytes % (auto) 6.5 %; Mean Corpuscular Hemoglobin 29.3 pg (25-34); Mean Corpuscular Hgb Conc 31.4 g/dL (32-36); Mean Corpuscular Volume 93.2 fL (80-100); Mean Platelet Volume 9.1 fL (7.4-10.4); Monocytes # (auto) 1.46 K/uL (0.11-0.59); Monocytes % (auto) 7.6 %; Neutrophils % (auto) 80.5 %; Platelet Count 328 K/uL (130-400); RDW Coefficient of Variation 17.2 % (11.5-14.5); RDW Standard Deviation 58.3 fL (36.4-46.3); Red Blood Count 3.96 M/uL (4.7-6.1); White Blood Count 19.13 K/uL (4.8-10.8)
[2020-10-31] MEDS: NovoLOG INSULIN PUMP SCH ×4 (09:05→20:57)
--- NOTE | 2020-10-31 10:01 | Surgery Progress Note ---
Date of Service October 31, 2020 Assessment & Plan Admission and Anticipated Discharge Date Admission Date: October 25, 2020 Subjective Patient awake alert in no distress in dialysis His affect is actually relatively good and he took no pain medicine last night or most of the day yesterday His vital signs are stable, his white blood cell count remains elevated, he is afebrile His abdomen is soft and nontender, he is having relatively loose bowel movements He appears to be having less pain , he does not appear to be in a situation where he requires urgent transfer He does need close follow-up preferably with colorectal surgery either from [place] or possibly [place] who come to [place] We may consider discharge home on oral antibiotics I am currently trying to discuss the case directly with one of the colorectal surgeons from [place] just to get their opinion Results & Data ([facility]) Vital Signs (Past 12 Hours) Vital Signs Temp Pulse Resp BP BP Pulse Ox 10/31/20 07:46 36.9 C 67 18 150/82 H 10/30/20 22:23 36.4 C L 63 20 99/50 L 95 PG Care Time/CCT Total # of Minutes Spent Total Time Spent with Patient: Total time spent is greater than 50% in coordination of care (as documented) at patient's floor/unit and/or counseling patient: Coding Level of Care Code 11075 Inpt Consult Level 3
--- NOTE | 2020-10-31 10:38 | Nephrology Progress Note ---
Date of Service October 31, 2020 Assessment & Plan (1) ESRD (end stage renal disease): (2) Anemia: (3) HTN (hypertension): (4) Acute ischemic colitis: Plan: ESRD, on hemodialysis on Saturday, Saturday, Saturday via right brachiocephalic AV fistula, dialysis at [facility]. Admitted to the hospital with abdominal pain and diagnosed with ischemic colitis, Being managed conservatively, has been on liquid diet so far tolerating okay and symptom seem to be slowly improving. Has been getting dialysis regularly although getting minimum UF considering decrease p.o. intake and consequently some weight loss over last few days. --dialysis this morning, plan for 2 L UF as he is 2 kg above his dry weight although dry weight may need to be Re adjusted considering some weight loss over last few days. -- Right arm nephrology precaution -- MISA for hemoglobin less than 10 will follow Admission and Anticipated Discharge Date Admission Date: October 25, 2020 Subjective Jayce reports slight improvement in abdominal pain and discomfort. Has been tolerating liquid diet so far. No shortness of breath or chest pain. Blood pressure acceptable. Review of Systems Review of Systems: Detailed review of system otherwise unremarkable. Physical Exam Constitutional: well developed and well nourished; no acute distress Respiratory: normal respiratory effort, lungs clear to auscultation Cardiovascular: RRR, no murmur, no edema Neurologic: moves all extremities and awake; not confused Psychiatric: A+Ox3, euthymic affect Results & Data ([facility]) Vital Signs (Past 12 Hours) Vital Signs Temp Pulse Resp BP 10/31/20 07:46 36.9 C 67 18 150/82 H PG Care Time/CCT Total # of Minutes Spent Total Time Spent with Patient: Total time spent is greater than 50% in coordination of care (as documented) at patient's floor/unit and/or counseling p atient: Coding Level of Care Code 83785 Subseq Hosp Care Lvl 3 Diagnoses ESRD (end stage renal disease) N18.6 Anemia D64.9 HTN (hypertension) I10 Acute ischemic colitis K55.039
[2020-10-31] MEDS: LABETALOL HCL 100 MG TAB PO SCH ×2 (13:52→20:42)
[2020-10-31] MEDS: CIPROFLOXACIN / D5W 400 MG/200 ML BAG IV SCH (13:53)
--- NOTE | 2020-10-31 15:34 | Hospitalist Progress Note ---
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 difficile is negative-we will check again today Stool cultures negative Pathology with sessile serrated adenoma as well as ulcerations and inflammation -Appreciate general surgery consultation-can follow-up with colorectal surgery as an outpatient -We will consult vascular surgery to see if any intervention needed for SMA stenosis or any other mesenteric stenoses -Follow CBC -Continue IV Cipro and Flagyl Continue pain control as needed -If develops worsening pain or fever, would reimage abdomen with IV contrast -Surgery advance diet to low fiber today -Check CBC, CMP, and lactate in the morning (2) Leukocytosis: Plan: As above, sustained at 19 but slightly improved from yesterday Check C. difficile given ongoing loose stools Afebrile, but if spikes fever, would check blood cultures and reimage as above He makes very little urine and it appeared normal to him last evening No evidence of infection anywhere else, no pneumonia or atelectasis, no rashes or cellulitis Follow CBC (3) Diarrhea: Plan: As above, secondary to ischemic colitis C. difficile negative, stool culture negative Checking significant as above (4) HTN (hypertension): Plan: Acceptable blood pressures Continue labetalol 100 mg p.o. twice daily (5) CAD (coronary artery disease): Plan: No current anginafollow clinically Continue home aspirin, but Plavix is on hold in case of need for surgery Continue labetalol, rosuvastatin (6) ESRD (end stage renal disease): Plan: Nephrology following, Saturday dialysis Continue sevelamer, Lasix 80 mg p.o. 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 He has not taken anything for pain last day and half and is trying not to. He also has some intermittent nausea but he does not want to take anything for that. He reports continued loose stools, however have decreased in frequency since admission. He had for overnight into this morning. They are nonbloody and yellow in color. He denies chest pain or shortness of breath. He tolerated dialysis today with removal of 2 L. Discussed his care with general surgery today on the phone. Review of Systems Review of Systems: All systems reviewed & are unremarkable except as noted in HPI & below He made some urine last night that did not seem cloudy in color or have a foul odor Denies any rashes or wounds, no joint pains, no headache or lightheadedness No cough or shortness of breath or chest pain Physical Exam Constitutional: WD/WN, vitals as above Eyes: + anicteric sclerae Neck: trachea midline, no thyromegaly Respiratory: normal respiratory effort, lungs clear to auscultation Cardiovascular: RRR, no murmur, no edema Chest (Breasts): Chest: normal inspection of chest Gastrointestinal (Abdomen): Inspection/Auscultation: normal bowel sounds; abdomen not distended Percussion/Palpation: + abdomen tender (Mild in the mid to lower abdomen without guarding) and abdomen soft; no guarding Musculoskeletal: Extremities: extremities normal to inspection; no cyanosis and no clubbing Skin: no rashes, warm and dry Neurologic: moves all extremities and awake; no focal motor deficits Psychiatric: A+Ox3, euthymic affect Lymphatic: no lymphedema Results & Data Results & Data ([facility]) Vital Signs (Past 12 Hours) Vital Signs Temp Pulse Pulse Pulse Resp BP BP 10/31/20 12:40 64 150/72 H 10/31/20 12:20 62 151/60 H 10/31/20 12:00 61 145/77 H 10/31/20 11:40 62 156/84 H 10/31/20 11:20 63 147/77 H 10/31/20 11:00 65 145/85 H 10/31/20 10:40 63 152/75 H 10/31/20 10:20 63 157/77 H 10/31/20 10:00 64 153/77 H 10/31/20 09:40 64 150/72 H 10/31/20 09:33 37.0 C 66 10/31/20 07:46 36.9 C 67 18 150/82 H Laboratory Results 10/31/20 10/31/20 10/31/20 Range/Units 16:30 08:19 08:17 WBC 19.13 H (4.8-10.8) K/uL RBC 3.96 L (4.7-6.1) M/uL Hgb 11.6 L (14.0-18.0) g/dL Hct 36.9 L (42-52) % MCV 93.2 (80-100) fL MCH 29.3 (25-34) pg MCHC 31.4 L (32-36) g/dL RDW Std Deviation 58.3 H (36.4-46.3) fL RDW Coeff of Tl 17.2 H (11.5-14.5) % Plt Count 328 (130-400) K/uL MPV 9.1 (7.4-10.4) fL Immature Gran % (Auto) 3.5 % Neut % (Auto) 80.5 % Lymph % (Auto) 6.5 % Graham % (Auto) 7.6 % Eos % (Auto) 1.7 % Baso % (Auto) 0.2 % Neut # (Auto) 15.40 H (1.4-6.5) K/uL Lymph # (Auto) 1.24 (1.2-3.4) K/uL Graham # (Auto) 1.46 H (0.11-0.59) K/uL Eos # (Auto) 0.32 (0-0.5) K/uL Baso # (Auto) 0.04 (0-0.2) K/uL Immature Gran # (Auto) 0.67 H (0.00-0.02) K/uL POC Glucose 131 H (70-99) mg/dl Stl C. diff Tox B Gene Negative Cdiff Gene (Neg) PG Care Time/CCT Total # of Minutes Spent Total Time Spent with Patient: Total time spent is greater than 50% in coordination of care (as documented) at patient's floor/unit and/or counseling patient: Coding Level of Care Code 43394 Subseq Hosp Care Lvl 3 Diagnoses Acute ischemic colitis K55.[address] Z96.41 HTN (hypertension) I10 CAD (coronary artery disease) I25.10 ESRD (end stage renal disease) N18.6 Congestive heart failure I50.42 Heart failure chronicity: chronic Heart failure type: combined systolic and diastolic Diarrhea R19.7 Leukocytosis D72.829 Diabetes type 1, controlled E10.9 (1) Congestive heart failure Heart failure chronicity: chronic Heart failure type: combined systolic and diastolic Qualified Code(s): I50.42 - Chronic combined systolic (congestive) and diastolic (congestive) heart failure
[2020-11-01] MEDS: metroNIDAZOLE 500 MG/100 ML BAG IV SCH ×5 (00:04→23:23)
[2020-11-01 07:23] LABS: Basophils # (auto) 0.04 K/uL (0-0.2); Basophils % (auto) 0.2 %; Eosinophils # (auto) 0.32 K/uL (0-0.5); Eosinophils % (auto) 1.7 %; Hematocrit (blood only) 39.1 % (42-52); Hemoglobin 12.2 g/dL (14.0-18.0); Immature Granulocytes # (auto) 0.61 K/uL (0.00-0.02); Immature Granulocytes % (auto) 3.3 %; Lymphocytes # (auto) 0.92 K/uL (1.2-3.4); Mean Corpuscular Hgb Conc 31.2 g/dL (32-36); Mean Corpuscular Volume 93.1 fL (80-100); Mean Platelet Volume 9.1 fL (7.4-10.4); Monocytes % (auto) 10.9 %; Neutrophils # (auto) 14.53 K/uL (1.4-6.5); Neutrophils % (auto) 78.9 %; Nucleated RBC # (auto) 0.03 K/uL (0-0); Nucleated RBC % (auto) 0.2 %; Platelet Count 346 K/uL (130-400); RDW Coefficient of Variation 17.4 % (11.5-14.5); RDW Standard Deviation 58.9 fL (36.4-46.3); White Blood Count 18.42 K/uL (4.8-10.8)
[2020-11-01 08:04] LABS: Albumin Globulin Ratio 0.5 (0.9-2); Albumin Level 2.4 gm/dl (3.4-5.0); BUN Creatinine Ratio 2.8 (10-20); Bilirubin,Total 0.5 mg/dl (0.2-1); Calcium 9.2 mg/dl (8.5-10.1); Creatinine Clr Calc Pharmacy 15.7 ml/min; Est GFR (African American) 9.2 ml/min; Est GFR (Non-African American) 7.9 ml/min; Magnesium 2.2 mg/dl (1.8-2.4); Potassium 3.9 mmol/L (3.5-5.1); Total Protein 7.4 gm/dl (6.4-8.2)
[2020-11-01] MEDS: CIPROFLOXACIN / D5W 400 MG/200 ML BAG IV SCH (09:29)
--- NOTE | 2020-11-01 10:42 | Surgery Progress Note ---
Date of Service November 01, 2020 Assessment & Plan Admission and Anticipated Discharge Date Admission Date: October 25, 2020 Subjective Patient ate regular food and felt great Minimal pain and taking minimal pain medication His abdomen is flat and soft with no tenderness He is for CT angiogram I did discuss his case with [facility] colorectal surgery They are in agreement that patient would be a very poor risk for any surgery unless necessary for Life-threatening situation Continue IV antibiotics for now and then switch to p.o. Results & Data ([facility]) Vital Signs (Past 12 Hours) Vital Signs Temp Pulse Pulse Resp BP Pulse Ox 11/01/20 07:42 36.9 C 72 18 121/71 95 10/31/20 22:44 36.8 C 67 16 124/72 93 PG Care Time/CCT Total # of Minutes Spent Total Time Spent with Patient: Total time spent is greater than 50% in coordination of care (as documented) at patient's floor/unit and/or counseling patient: Coding Level of Care Code 41777 Inpt Consult Level 3
--- NOTE | 2020-11-01 10:54 | Nephrology Progress Note ---
Date of Service November 01, 2020 Assessment & Plan (1) ESRD (end stage renal disease): (2) Anemia: (3) HTN (hypertension): (4) Acute ischemic colitis: Plan: ESRD, on hemodialysis on Saturday, Saturday, Saturday via right brachiocephalic AV fistula, dialysis at [facility]. Admitted to the hospital with abdominal pain and diagnosed with ischemic colitis, Being managed conservatively, has been on liquid diet so far tolerating okay and symptom seem to be slowly improving. Has been getting dialysis regularly although getting minimum UF considering decrease p.o. intake and consequently some weight loss over last few days. Overall clinically improving, tolerating regular diet, abdominal pain improved. -- okay to have CTA of abdomen, he has been on dialysis for almost 7 years with no residual renal function. -- Right arm nephrology precaution -- MISA for hemoglobin less than 10 will follow Admission and Anticipated Discharge Date Admission Date: October 25, 2020 Subjective Jayce has been tolerating regular diet since last night. Has minimum abdominal discomfort but overall he feels better. Tolerated dialysis yesterday with 2 L UF. Blood pressure well controlled. Electrolyte, hemoglobin acceptable. Review of Systems Review of Systems: Detailed review of system otherwise unremarkable. Physical Exam Constitutional: well developed and well nourished; no acute distress Respiratory: normal respiratory effort, lungs clear to auscultation Cardiovascular: RRR, no murmur, no edema Neurologic: moves all extremities and awake; not confused Psychiatric: A+Ox3, euthymic affect Results & Data ([facility]) Vital Signs (Past 12 Hours) Vital Signs Temp Pulse Resp BP Pulse Ox 11/01/20 07:42 36.9 C 72 18 121/71 95 PG Care Time/CCT Total # of Minutes Spent Total Time Spent with Patient: Total time spent is greater than 50% in coordination of care (as documented) at patient's floor/unit and/or counseling patient: Coding Level of Care Code 27482 Subseq Hosp Care Lvl 2 Diagnoses ESRD (end stage renal disease) N18.6 Anemia D64.9 HTN (hypertension) I10 Acute ischemic colitis K55.039
[2020-11-01] MEDS ORDERED: OPTIRAY 320 125ml IV ONE (11:07)
[2020-11-01] MEDS: NovoLOG INSULIN PUMP SCH ×4 (12:00→20:49)
--- NOTE | 2020-11-01 12:15 | CT Scan Report ---
CT angio abdomen pelvis w con CLINICAL HISTORY: 55 years-old Male with ischemic colitis acute generalized abdominal pain with re ported colitis COMPARISON STUDY: CT abdomen and pelvis 10/25/2020 and 10/23/2020 TECHNIQUE: Following the IV administration of 120 cc of Optiray, CT angiogram of the abdomen and pelv is was performed from the lung bases the proximal femora. Images are reviewed in the axial, sagittal, and coronal planes. 3-D MIPS images are created and assessed. All measurements were obtained accordi ng to NASCET criteria. IV contrast was administered without complication. A dose lowering technique was utilized adhering to the principles of ALARA. CT DOSE: 1157.11 mGycm FINDINGS: CT ABDOMEN/PELVIS: Cardiomegaly. Coronary artery calcifications. Mild bibasilar atelectasis/scarring. No pneumatosis or pneumoperitoneum. The spleen, atrophic pancreas and adrenal glands are unremarkable. Distended gallbl adder contains hyperdense material suggestive of vicarious excretion of contrast. No CT evidence of a cute cholecystitis. A 12 mm hypodense focus of the left hepatic lobe is unchanged, possibly a hemangi javon. The liver is otherwise unremarkable. No evidence of cirrhosis. A 10 mm cyst is present within the inferior pole left kidney. Atrophic kidneys without hydronephrosis . Urinary bladder wall thickening with partial distention. Prostamegaly. No adenopathy. Scattered air -fluid levels throughout the large bowel. Mild wall thickening of the mid transverse colon is less pr onounced than prior. Submucosal fat deposition of the cecum and ascending colon redemonstrated. Clary l appendix. Scattered small bowel air-fluid levels. Mildly dilated loop of jejunum within the upper a bdomen measures up to 3.4 cm transversely. This is similar in appearance to the 10/25/2020 exam. No tr ansition point. Unremarkable soft tissues. No acute fracture or suspicious bone lesion. Degenerative changes of the s pine, pelvis and hips. CTA: Extensive atherosclerosis of the abdominal aorta and branch vessels. Patent celiac trunk. 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 Additional areas of high-grade lelo nosis are noted within the mid vessel as seen on image 204 series 3. The distal branches of the super ior mesenteric artery are difficult to evaluate secondary to extensive calcifications. Moderate steno sis at the origin of the inferior mesenteric artery with multifocal at least mild luminal narrowing. Advanced atherosclerosis of the renal arteries without high-grade stenosis at the origin on the left. There is at least moderate multifocal luminal narrowing of the right renal artery. The common iliac, external iliac, common femoral and imaged superficial femoral arteries are patent. IMPRESSION: 1. Scattered air-fluid levels throughout loops of large and small bowel may reflect ileus versus ente ritis with diarrheal illness. Mildly dilated loop of jejunum within the upper abdomen is similar to c omparison. A low-grade small bowel obstruction and is also within the differential however is conside red less likely. 2. Mild wall thickening involving the transverse colon is less pronounced than prior. Again, this fin ding could be closed with a follow-up colonoscopy. 3. 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 4. High-grade stenosis at the origin of the left renal artery. 5. Additional findings as above. ACT 112: Negative or not required by law. The above report was generated using voice recognition software. It may contain grammatical, syntax o r spelling errors. Electronically signed by: Santana Smith M.D. 11/01/2020 12:13 PM
[2020-11-01] MEDS: LABETALOL HCL 100 MG TAB PO SCH ×2 (12:49→20:48)
[2020-11-01] MEDS: PANTOprazole 40 MG TAB PO SCH ×2 (12:50→20:49)
[2020-11-01] MEDS: DICYCLOMINE HCL 10 MG CAP PO SCH ×4 (12:50→20:48)
[2020-11-01] MEDS: ASPIRIN 81 MG ECTAB PO SCH (12:51)
[2020-11-01] MEDS: CINACALCET HCL 90 MG TAB PO SCH (12:51)
[2020-11-01] MEDS: FUROSEMIDE 80 MG TAB PO SCH ×2 (12:51→17:59)
[2020-11-01] MEDS: CALCITRIOL 0.25 MCG CAPSULE PO SCH (12:51)
[2020-11-01] MEDS: ROSUVASTATIN CALCIUM 10 MG TAB PO SCH (12:51)
[2020-11-01] MEDS: HEPARIN SOD 5,000 UNIT/0.5 ML VIAL SQ SCH ×2 (12:52→20:48)
--- NOTE | 2020-11-01 14:35 | Hospitalist Progress Note ---
Date of Service November 01, 2020 Assessment & Plan (1) Acute ischemic colitis: Plan: Presented with abdominal pain and found to have evidence of colitis in the mid transverse colon and the cecum on both imaging and on colonoscopy CT abdomen/pelvis does note diffuse plaque in the aorta, and general surgery reviewed his initial CT with IV contrast and thought that his SMA was stenosed Abdominal pain is slowly improving, continues with loose stools but overall improved. Tolerating low fiber diet with some abdominal discomfort afterwards Continues with significant leukocytosis at a finally decreased slightly to 18 C. difficile is negative-on 2 occasions Stool cultures negative on 2 occasions Lactate normal at 1.4 Pathology with sessile serrated adenoma as well as ulcerations and inflammation -Appreciate general surgery consultation-discussed care with colorectal surgery at [place]-recommends no surgery unless signs of peritonitis or emergent as he is high risk -Check CT angiogram abdomen/pelvis today-shows multifocal severe stenoses of the SMA as well as moderate stenosis of the GERARDO; also shows improvement of the colitis -We will consult vascular surgery to see if any intervention needed for SMA stenosis -Follow CBC -Continue IV Cipro and Flagyl and will convert to p.o. for total 14-day course after discharge Continue pain control as needed -If develops worsening pain or fever, would reimage abdomen with IV contrast -Continue low fiber diet -Check CBC, CMP in the morning Consider discharge tomorrow or the next day if continues to improve (2) Leukocytosis: Plan: As above, sustained at 19 but today decreased to 18 C. difficile twice several days apart given ongoing loose stools-negative Afebrile, but if spikes fever, would check blood cultures and reimage as above He makes very little urine and it appeared normal to him when he last went No evidence of infection anywhere else, no pneumonia or atelectasis, no rashes or cellulitis Follow CBC (3) Diarrhea: Plan: As above, secondary to ischemic colitis-is reducing in frequency today C. difficile negative, stool culture negative (4) HTN (hypertension): Plan: Acceptable blood pressures Continue labetalol 100 mg p.o. twice daily (5) CAD (coronary artery disease): Plan: No current anginafollow clinically Continue home aspirin, but Plavix is on hold in case of need for surgery-can likely restart tomorrow Continue labetalol, rosuvastatin (6) ESRD (end stage renal disease): Plan: Nephrology following, Saturday dialysis Continue sevelamer, Lasix 80 mg p.o. twice daily, cinacalcet (7) Congestive heart failure: Plan: 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; clinically well compensatedfluid removal with dialysis otherwise no change Continue Lasix (8) Diabetes type 1, controlled: Plan: With insulin pump in place Glucose is well controlled (9) Insulin pump in place: Plan: As above Plan: DVT prophylaxis-SQ heparin Disposition-continued stay Admission and Anticipated Discharge Date Admission Date: October 25, 2020 Subjective Patient reports having some upset stomach after eating a larger meal today. Abdominal pain is much improved from previous, and he is only had 2 loose stools today. Remains afebrile Discussed his care with general surgery Still awaiting vascular surgery consultation-however, it appears he was never contacted Review of Systems Review of Systems: All systems reviewed & are unremarkable except as noted in HPI & below Denies chest pain or shortness of breath Physical Exam Constitutional: WD/WN, vitals as above Eyes: + anicteric sclerae Neck: trachea midline, no thyromegaly Respiratory: normal respiratory effort, lungs clear to auscultation Cardiovascular: RRR, no murmur, no edema Chest (Breasts): Chest: normal inspection of chest Gastrointestinal (Abdomen): Inspection/Auscultation: normal bowel sounds; abdomen not distended Percussion/Palpation: + abdomen tender (Mild in the mid to lower abdomen without guarding) and abdomen soft; no guarding Musculoskeletal: Extremities: extremities normal to inspection; no cyanosis and no clubbing Skin: no rashes, warm and dry Neurologic: moves all extremities and awake; no focal motor deficits Psychiatric: A+Ox3, euthymic affect Lymphatic: no lymphedema Results & Data Results & Data ([facility]) Vital Signs (Past 12 Hours) Vital Signs Temp Pulse Resp BP Pulse Ox 11/01/20 07:42 36.9 C 72 18 121/71 95 Laboratory Results 11/01/20 11/01/20 11/01/20 Range/Units 17:07 07:58 07:11 WBC (4.8-10.8) K/uL RBC (4.7-6.1) M/uL Hgb (14.0-18.0) g/dL Hct (42-52) % MCV (80-100) fL MCH (25-34) pg MCHC (32-36) g/dL RDW Std Deviation (36.4-46.3) fL RDW Coeff of Tl (11.5-14.5) % Plt Count (130-400) K/uL MPV (7.4-10.4) fL Immature Gran % (Auto) % Neut % (Auto) % Lymph % (Auto) % [place] % (Auto) % Eos % (Auto) % Baso % (Auto) % Neut # (Auto) (1.4-6.5) K/uL Lymph # (Auto) (1.2-3.4) K/uL [place] # (Auto) (0.11-0.59) K/uL Eos # (Auto) (0-0.5) K/uL Baso # (Auto) (0-0.2) K/uL Immature Gran # (Auto) (0.00-0.02) K/uL Absolute Nucleated RBC (0-0) K/uL Nucleated RBC % (auto) % Sodium (136-145) mmol/L Potassium (3.5-5.1) mmol/L Chloride (98-107) mmol/L Carbon Dioxide (21-32) mmol/L Anion Gap (3-11) BUN (7-18) mg/dl Creatinine (0.6-1.4) mg/dl Est Cr Clr Drug Dosing ml/min Est GFR ( Amer) ml/min Est GFR (Non-Af Amer) ml/min BUN/Creatinine Ratio (10-20) Glucose (70-99) mg/dl POC Glucose 98 138 H (70-99) mg/dl Lactate 1.4 (0.4-2.0) mmol/L Calcium (8.5-10.1) mg/dl Magnesium (1.8-2.4) mg/dl Total Bilirubin (0.2-1) mg/dl AST (15-37) U/L ALT (12-78) U/L Alkaline Phosphatase (45-117) U/L Total Protein (6.4-8.2) gm/dl Albumin (3.4-5.0) gm/dl Globulin (2.5-4.0) gm/dl Albumin/Globulin Ratio (0.9-2) Stool Comments 11/01/20 11/01/20 11/01/20 Range/Units 07:11 07:11 01:23 WBC 18.42 H (4.8-10.8) K/uL RBC 4.20 L (4.7-6.1) M/uL Hgb 12.2 L (14.0-18.0) g/dL Hct 39.1 L (42-52) % MCV 93.1 (80-100) fL MCH 29.0 (25-34) pg MCHC 31.2 L (32-36) g/dL RDW Std Deviation 58.9 H (36.4-46.3) fL RDW Coeff of Tl 17.4 H (11.5-14.5) % Plt Count 346 (130-400) K/uL MPV 9.1 (7.4-10.4) fL Immature Gran % (Auto) 3.3 % Neut % (Auto) 78.9 % Lymph % (Auto) 5.0 % [place] % (Auto) 10.9 % Eos % (Auto) 1.7 % Baso % (Auto) 0.2 % Neut # (Auto) 14.53 H (1.4-6.5) K/uL Lymph # (Auto) 0.92 L (1.2-3.4) K/uL [place] # (Auto) 2.00 H (0.11-0.59) K/uL Eos # (Auto) 0.32 (0-0.5) K/uL Baso # (Auto) 0.04 (0-0.2) K/uL Immature Gran # (Auto) 0.61 H (0.00-0.02) K/uL Absolute Nucleated RBC 0.03 H (0-0) K/uL Nucleated RBC % (auto) 0.2 % Sodium 136 (136-145) mmol/L Potassium 3.9 (3.5-5.1) mmol/L Chloride 102 (98-107) mmol/L Carbon Dioxide 24 (21-32) mmol/L Anion Gap 10.0 (3-11) BUN 20 H (7-18) mg/dl Creatinine 7.07 H* (0.6-1.4) mg/dl Est Cr Clr Drug Dosing 15.7 ml/min Est GFR ( Amer) 9.2 ml/min Est GFR (Non-Af Amer) 7.9 ml/min BUN/Creatinine Ratio 2.8 L (10-20) Glucose 142 H (70-99) mg/dl POC Glucose 179 H (70-99) mg/dl Lactate (0.4-2.0) mmol/L Calcium 9.2 (8.5-10.1) mg/dl Magnesium 2.2 (1.8-2.4) mg/dl Total Bilirubin 0.5 (0.2-1) mg/dl AST 9 L (15-37) U/L ALT 13 (12-78) U/L Alkaline Phosphatase 199 H (45-117) U/L Total Protein 7.4 (6.4-8.2) gm/dl Albumin 2.4 L (3.4-5.0) gm/dl Globulin 5.0 H (2.5-4.0) gm/dl Albumin/Globulin Ratio 0.5 L (0.9-2) Stool Comments 10/25/20 Range/Units Unknown WBC (4.8-10.8) K/uL RBC (4.7-6.1) M/uL Hgb (14.0-18.0) g/dL Hct (42-52) % MCV (80-100) fL MCH (25-34) pg MCHC (32-36) g/dL RDW Std Deviation (36.4-46.3) fL RDW Coeff of Tl (11.5-14.5) % Plt Count (130-400) K/uL MPV (7.4-10.4) fL Immature Gran % (Auto) % Neut % (Auto) % Lymph % (Auto) % [place] % (Auto) % Eos % (Auto) % Baso % (Auto) % Neut # (Auto) (1.4-6.5) K/uL Lymph # (Auto) (1.2-3.4) K/uL [place] # (Auto) (0.11-0.59) K/uL Eos # (Auto) (0-0.5) K/uL Baso # (Auto) (0-0.2) K/uL Immature Gran # (Auto) (0.00-0.02) K/uL Absolute Nucleated RBC (0-0) K/uL Nucleated RBC % (auto) % Sodium (136-145) mmol/L Potassium (3.5-5.1) mmol/L Chloride (98-107) mmol/L Carbon Dioxide (21-32) mmol/L Anion Gap (3-11) BUN (7-18) mg/dl Creatinine (0.6-1.4) mg/dl Est Cr Clr Drug Dosing ml/min Est GFR ( Amer) ml/min Est GFR (Non-Af Amer) ml/min BUN/Creatinine Ratio (10-20) Glucose (70-99) mg/dl POC Glucose (70-99) mg/dl Lactate (0.4-2.0) mmol/L Calcium (8.5-10.1) mg/dl Magnesium (1.8-2.4) mg/dl Total Bilirubin (0.2-1) mg/dl AST (15-37) U/L ALT (12-78) U/L Alkaline Phosphatase (45-117) U/L Total Protein (6.4-8.2) gm/dl Albumin (3.4-5.0) gm/dl Globulin (2.5-4.0) gm/dl Albumin/Globulin Ratio (0.9-2) Stool Comments SEE NOTE PG Care Time/CCT Total # of Minutes Spent Total Time Spent with Patient: Total time spent is greater than 50% in coordination of care (as documented) at patient's floor/unit and/or counseling patient: Coding Level of Care Code 49551 Subseq Hosp Care Lvl 3 Diagnoses Acute ischemic colitis K55.039 Leukocytosis D72.829 Diarrhea R19.7 HTN (hypertension) I10 CAD (coronary artery disease) I25.10 ESRD (end stage renal disease) N18.6 Congestive heart failure I50.42 Heart failure chronicity: chronic Heart failure type: combined systolic and diastolic Diabetes type 1, controlled E10.[address] Z96.41 (1) Congestive heart failure Heart failure chronicity: chronic Heart failure type: combined systolic and diastolic Qualified Code(s): I50.42 - Chronic combined systolic (congestive) and diastolic (congestive) heart failure
[2020-11-02] MEDS: metroNIDAZOLE 500 MG/100 ML BAG IV SCH ×3 (07:52→23:31)
[2020-11-02] MEDS: CIPROFLOXACIN / D5W 400 MG/200 ML BAG IV SCH (07:52)
[2020-11-02 08:26] LABS: Basophils # (auto) 0.04 K/uL (0-0.2); Basophils % (auto) 0.2 %; Eosinophils # (auto) 0.35 K/uL (0-0.5); Eosinophils % (auto) 2.2 %; Hematocrit (blood only) 37.3 % (42-52); Hemoglobin 11.6 g/dL (14.0-18.0); Immature Granulocytes # (auto) 0.54 K/uL (0.00-0.02); Immature Granulocytes % (auto) 3.4 %; Lymphocytes # (auto) 0.94 K/uL (1.2-3.4); Lymphocytes % (auto) 5.9 %; Mean Corpuscular Hemoglobin 28.8 pg (25-34); Mean Corpuscular Hgb Conc 31.1 g/dL (32-36); Mean Corpuscular Volume 92.6 fL (80-100); Mean Platelet Volume 8.9 fL (7.4-10.4); Monocytes # (auto) 1.74 K/uL (0.11-0.59); Monocytes % (auto) 10.9 %; Neutrophils # (auto) 12.42 K/uL (1.4-6.5); Neutrophils % (auto) 77.4 %; Platelet Count 340 K/uL (130-400); RDW Coefficient of Variation 17.2 % (11.5-14.5); RDW Standard Deviation 57.9 fL (36.4-46.3); Red Blood Count 4.03 M/uL (4.7-6.1); White Blood Count 16.03 K/uL (4.8-10.8)
[2020-11-02] MEDS: NovoLOG INSULIN PUMP SCH ×4 (09:11→21:49)
[2020-11-02 09:19] LABS: Albumin Globulin Ratio 0.5 (0.9-2); Albumin Level 2.3 gm/dl (3.4-5.0); BUN Creatinine Ratio 3.1 (10-20); Bilirubin,Total 0.6 mg/dl (0.2-1); Calcium 9.1 mg/dl (8.5-10.1); Creatinine Clr Calc Pharmacy 12.5 ml/min; Globulin 4.7 gm/dl (2.5-4.0); Magnesium 1.8 mg/dl (1.8-2.4); Potassium 3.9 mmol/L (3.5-5.1)
--- NOTE | 2020-11-02 10:31 | Nephrology Progress Note ---
Date of Service November 02, 2020 Assessment & Plan (1) ESRD (end stage renal disease): (2) Anemia: (3) HTN (hypertension): (4) Acute ischemic colitis: Plan: ESRD, on hemodialysis on Saturday, Saturday, Saturday via right brachiocephalic AV fistula, dialysis at [facility]. Admitted to the hospital with abdominal pain and diagnosed with ischemic colitis, Being managed conservatively, has been on liquid diet so far tolerating okay and symptom seem to be slowly improving. Has been getting dialysis regularly although getting minimum UF considering decrease p.o. intake and consequently some weight loss over last few days. Overall clinically improving, tolerating regular diet, abdominal pain improved. CTA abdomen pelvis showed SMA stenosis, currently waiting for vascular surgery evaluation. -- HD today, UF to [facility]W. -- Right arm nephrology precaution -- MISA for hemoglobin less than 10 -- Continue calcitriol, Sensipar, resume Renvela with meal and renal cap daily will follow Admission and Anticipated Discharge Date Admission Date: October 25, 2020 Subjective Jayce reports overall feeling well, close to his baseline, tolerating regular diet. Abdominal pain seems to have resolved and diarrhea has been improving as well. Blood pressure slightly elevated but no significant volume overload. Electrolyte has been acceptable. Anxious to be discharged. Review of Systems Review of Systems: Detailed review of system otherwise unremarkable. Physical Exam Constitutional: well developed and well nourished; no acute distress Respiratory: normal respiratory effort, lungs clear to auscultation Cardiovascular: RRR, no murmur, no edema Neurologic: moves all extremities; not confused Psychiatric: A+Ox3, euthymic affect Results & Data ([facility]) Vital Signs (Past 12 Hours) Vital Signs Temp Pulse Pulse Resp BP BP Pulse Ox 11/02/20 09:50 75 172/85 H 11/02/20 09:43 37.0 C 67 11/02/20 08:00 36.9 C 65 16 162/71 H 93 PG Care Time/CCT Total # of Minutes Spent Total Time Spent with Patient: Total time spent is greater than 50% in coordination of care (as documented) at patient's floor/unit and/or counseling patient: Coding Level of Care Code 36317 Subseq Hosp Care Lvl 3 Diagnoses ESRD (end stage renal disease) N18.6 Anemia D64.9 HTN (hypertension) I10 Acute ischemic colitis K55.039
[2020-11-02] MEDS ORDERED: SEVELAMER HCL 800 MG TABLET PO SCH (12:00)
--- NOTE | 2020-11-02 12:49 | Surgery Progress Note ---
Date of Service November 02, 2020 Assessment & Plan (1) Ischemic colitis: Plan: white count trending down abdomen benign ok for d/c from surgical standpoint with outpatient colorectal follow-up Admission and Anticipated Discharge Date Admission Date: October 25, 2020 Subjective tolerating diet, felt full after dinner but not pain Physical Exam Gastrointestinal (Abdomen): Inspection/Auscultation: abdomen not distended Percussion/Palpation: abdomen soft; abdomen nontender Results & Data ([facility]) Vital Signs (Past 12 Hours) Vital Signs Temp Pulse Pulse Resp BP BP Pulse Ox 11/02/20 11:00 69 138/100 11/02/20 10:40 62 162/68 H 11/02/20 10:20 58 L 158/74 H 11/02/20 09:50 75 172/85 H 11/02/20 09:43 37.0 C 67 11/02/20 08:00 36.9 C 65 16 162/71 H 93 PG Care Time/CCT Total # of Minutes Spent Total Time Spent with Patient: Total time spent is greater than 50% in coordination of care (as documented) at patient's floor/unit and/or counseling patient: Coding Level of Care Code 99923 Subseq Hosp Care Lvl 1 Diagnoses Ischemic colitis K55.9
--- NOTE | 2020-11-02 13:21 | Consultation ---
Date of Consultation November 02, 2020 Assessment & Plan (1) Mesenteric artery stenosis: Pt with significant diffuse calcified arterial disease in abdomen, not amenable to endovascular treatment. Pt sx appear to have improved since admission. If pt sx recur or there are signs of peritonitis, recommend pt be eval at tertiary center for surgical options. Pt aware. Please call if needed. History of Present Illness Reason for Consultation: SMA stenosis Attending Physician: Jasmyn Bedoya MD History of Present Illness 55 yo m with multiple medical problems, including ESRD on HD, DM, HTN, CAD, hyperlipidemia, CHF, admitted with severe abd pain, N/V/D, seen in consultation today for SMA stenosis/bowel ischemia. Pt CT abd pelvis demonstrated colitis, and pt underwent colonoscopy with bx positive for ischemic colitis. CTA demonstrates signficant arterial calcifications throughout aorta and branch vessels, with mild stenosis of SMA. Pt himself states his sx began about 2 weeks ago and have finally stopped since being treated here. No prior similar sx. Denies food fear, significant unintentional weight loss, fever, chest pain, SOB, rest pain, claudication, other complaints. Did not eat for 2 days prior to admission, but states his meals had been normal prior to that time. Allergies Allergy/AdvReac Type Severity Reaction Status Date / Time No Known Allergies Allergy Unverified 10/24/20 23:09 Home Medications Medication Instructions Recorded Confirmed Type aspirin 81 mg tablet,delayed 81 mg PO DAILY 11/18/18 10/24/20 History release (Adult Aspirin Regimen) calcitriol 0.25 mcg capsule 0.25 mcg PO Q OTHER DAY cap 11/18/18 10/24/20 History cinacalcet 90 mg tablet (Sensipar) 90 mg PO DAILY 03/24/19 10/24/20 History furosemide 80 mg tablet (Lasix) 80 mg PO BID #180 tab 05/25/19 10/24/20 Rx labetalol 100 mg tablet 100 mg PO BID #180 tab 12/28/19 10/24/20 Rx insulin aspart U-100 100 unit/mL 70 unit CONTINUOUS SUBCUTANEOUS 01/11/20 10/24/20 Rx subcutaneous solution (Novolog INFUSION DAILY 90 Days #63 ml U-100 Insulin aspart) rosuvastatin 10 mg tablet 10 mg PO DAILY #90 tab 08/19/20 10/24/20 Rx clopidogrel 75 mg tablet 75 mg PO DAILY 10/23/20 10/24/20 History ondansetron HCl 4 mg tablet 4 mg PO Q6H PRN #10 tab 10/23/20 10/24/20 Rx (Zofran) sevelamer carbonate 800 mg tablet 2,400 mg PO ACHS 10/23/20 10/24/20 History Patient History Medical History (Updated 11/02/20 @ 13:18 by Ira Mallory PA-C) Acquired claw toe of left foot Acquired claw toe of right foot Anemia CAD (coronary artery disease) CAD (coronary atherosclerotic disease) CHF (congestive heart failure) Decreased sensation of foot Diabetes 1.5, 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, uncontrolled Diabetic neuropathy associated with secondary diabetes mellitus ESRD (end stage renal disease) on dialysis Foot ulcer, left Foot ulcer, right Hallux valgus (acquired), right foot HTN (hypertension) HTN, goal to be determined Hyperlipidemia Insulin pump in place Mesenteric artery stenosis Surgical History H/O eye surgery History of cataract surgery History of thoracic surgery S/P arteriovenous (AV) fistula creation S/P coronary artery stent placement Status post right foot surgery Family History Mother History of hip replacement Carpal tunnel syndrome Father Myocardial infarction Cardiac arrest History of hernia repair Stroke Hypertension Dyslipidemia A-fib Brother Hypertension Social History Smoking Status: Never smoker Second Hand Exposure: No; Do You Dip or Chew Tobacco: No; Tobacco Cessation Education Requested by Patient: No Hx Alcohol Use: Yes Alcohol type: beer Hx Substance Use: No Preferred Language: Croatian Communication Ability: Effective Visual Impairment: Limited Hearing Ability: Normal Talkback Host Required: No Beliefs That Will Affect Care: None marital status: Current Living Situation: Spouse current occupational status: retired and disabled Other Information That Helps Us Care for You: No Feels Safe at Home: Yes Safety Concerns: Feels Safe At This Time Assistive Devices: None Review of Systems Review of Systems: 14 systems reviewed and negative except what is related in HPI Physical Exam Constitutional: WD/WN, vitals as above + obese, cooperative and comfortable; not in distress ENMT: Ears: no hearing impairment Neck: trachea midline Respiratory: normal respiratory effort, lungs clear to auscultation Auscultation: + diminished lung sounds Cardiovascular: Rate/Rhythm: regular rate and regular rhythm Vessels: femoral pulses present and radial pulses present; + abnormal peripheral pulses (nonpalpable) Extremities: normal capillary refill, + edema (mild) and + AV fistula Gastrointestinal (Abdomen): Inspection/Auscultation: + significant pannus Percussion/Palpation: + abdomen tender (mild L side) and abdomen soft Musculoskeletal: no cyanosis or clubbing, extremities motor strength 5/5 Skin: no rashes, warm and dry Neurologic: moves all extremities; no focal motor deficits and not confused Psychiatric: A+Ox3, euthymic affect Results & Data ([facility]) Vital Signs (Past 12 Hours) Vital Signs Temp Pulse Pulse Resp BP BP Pulse Ox 11/02/20 12:40 62 154/73 H 11/02/20 12:20 60 155/71 H 11/02/20 12:00 64 142/73 H 11/02/20 11:40 64 147/75 H 11/02/20 11:20 64 152/78 H 11/02/20 11:00 69 138/100 11/02/20 10:40 62 162/68 H 11/02/20 10:20 58 L 158/74 H 11/02/20 09:50 75 172/85 H 11/02/20 09:43 37.0 C 67 11/02/20 08:00 36.9 C 65 16 162/71 H 93
[2020-11-02] MEDS: DICYCLOMINE HCL 10 MG CAP PO SCH ×4 (15:06→20:53)
[2020-11-02] MEDS: FUROSEMIDE 80 MG TAB PO SCH ×2 (15:06→15:59)
[2020-11-02] MEDS: CINACALCET HCL 90 MG TAB PO SCH (15:07)
[2020-11-02] MEDS: LABETALOL HCL 100 MG TAB PO SCH ×2 (15:07→20:53)
[2020-11-02] MEDS: PANTOprazole 40 MG TAB PO SCH ×2 (15:07→20:54)
[2020-11-02] MEDS: ASPIRIN 81 MG ECTAB PO SCH (15:07)
[2020-11-02] MEDS: ROSUVASTATIN CALCIUM 10 MG TAB PO SCH (15:08)
[2020-11-02] MEDS: HEPARIN SOD 5,000 UNIT/0.5 ML VIAL SQ SCH ×2 (15:08→20:53)
--- NOTE | 2020-11-02 18:00 | Hospitalist Progress Note ---
Date of Service November 02, 2020 Assessment & Plan (1) Acute ischemic colitis: Plan: Presented with abdominal pain and found to have evidence of colitis in the mid transverse colon and the cecum on both imaging and on colonoscopy CT abdomen/pelvis does note diffuse plaque in the aorta, and general surgery reviewed his initial CT with IV contrast and thought that his SMA was stenosed Abdominal pain is now much improved, loose stools have resolved. Tolerating low fiber diet, and leukocytosis finally improving, remains afebrile C. difficile is negative-on 2 occasions Stool cultures negative on 2 occasions Lactate normal at 1.4 Pathology with sessile serrated adenoma as well as ulcerations and inflammation- will need appropriate GI f/u with repeat colonoscopy likely in 3 years given sessile serrated adenoma -Appreciate general surgery consultation-discussed care with colorectal surgery at [facility]-recommends no surgery unless signs of peritonitis or emergent as he is high risk -Checked CT angiogram abdomen/pelvis-shows multifocal severe stenoses of the SMA as well as moderate stenosis of the GERARDO; also shows improvement of the colitis -Appreciate vascular surgery consult--> "Pt with significant diffuse calcified arterial disease in abdomen, not amenable to endovascular treatment. Pt sx appear to have improved since admission. If pt sx recur or there are signs of peritonitis, recommend pt be eval at tertiary center for surgical options" -Continue IV Cipro and Flagyl and will convert to p.o. for total 14-day course after discharge Continue pain control as needed -If develops worsening pain or fever, would re-image abdomen with IV contrast -Continue low fiber diet -Check CBC, CMP in the morning -will have Nurse Navigator arrange for outpatient consultation with Colorectal Surgeon at [facility] for second opinion Likely discharge tomorrow if continues to improve (2) Leukocytosis: Plan: As above, sustained at 19 but today further decreased to 16 C. difficile twice several days apart given ongoing loose stools-negative Afebrile, but if spikes fever, would check blood cultures and reimage as above He makes very little urine and it appeared normal to him when he last went No evidence of infection anywhere else, no pneumonia or atelectasis, no rashes or cellulitis Follow CBC (3) Diarrhea: Plan: As above, secondary to ischemic colitis-finally improving now as above C. difficile negative, stool culture negative (4) HTN (hypertension): Plan: Acceptable blood pressures Continue labetalol 100 mg p.o. twice daily Avoid hypotension given ischemic colitis and SMA stenosis (5) CAD (coronary artery disease): Plan: No current anginafollow clinically Continue home aspirin, but Plavix is on hold in case of need for surgery-will restart Continue labetalol, rosuvastatin (6) ESRD (end stage renal disease): Plan: Nephrology following, Saturday dialysis Continue sevelamer, Lasix 80 mg p.o. 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 Pain is much diminished, stools have become more formed and less frequent. He is tasia low fiber diet. Had HD today. Review of Systems Review of Systems: All systems reviewed & are unremarkable except as noted in HPI & below Physical Exam Constitutional: WD/WN, vitals as above Eyes: + anicteric sclerae Neck: trachea midline, no thyromegaly Respiratory: normal respiratory effort, lungs clear to auscultation Cardiovascular: RRR, no murmur, no edema Chest (Breasts): Chest: normal inspection of chest Gastrointestinal (Abdomen): Inspection/Auscultation: normal bowel sounds; abdomen not distended Percussion/Palpation: abdomen soft; abdomen nontender Musculoskeletal: Extremities: extremities normal to inspection; no cyanosis and no clubbing Skin: no rashes, warm and dry Neurologic: moves all extremities and awake; no focal motor deficits Psychiatric: A+Ox3, euthymic affect Lymphatic: no lymphedema Results & Data Results & Data ([facility]) Vital Signs (Past 12 Hours) Vital Signs Temp Pulse Pulse Resp BP BP BP 11/02/20 16:09 36.4 C L 65 18 156/80 H 11/02/20 14:00 37.0 C 63 156/75 H 11/02/20 13:50 62 160/77 H 11/02/20 13:20 63 153/73 H 11/02/20 13:00 71 174/74 H 11/02/20 12:40 62 154/73 H 11/02/20 12:20 60 155/71 H 11/02/20 12:00 64 142/73 H 11/02/20 11:40 64 147/75 H 11/02/20 11:20 64 152/78 H 11/02/20 11:00 69 138/100 11/02/20 10:40 62 162/68 H 11/02/20 10:20 58 L 158/74 H 11/02/20 09:50 75 172/85 H 11/02/20 09:43 37.0 C 67 11/02/20 08:00 36.9 C 65 16 162/71 H Pulse Ox 11/02/20 16:09 98 11/02/20 14:00 11/02/20 13:50 11/02/20 13:20 11/02/20 13:00 11/02/20 12:40 11/02/20 12:20 11/02/20 12:00 11/02/20 11:40 11/02/20 11:20 11/02/20 11:00 11/02/20 10:40 11/02/20 10:20 11/02/20 09:50 11/02/20 09:43 11/02/20 08:00 93 Laboratory Results 11/02/20 11/02/20 11/02/20 Range/Units 17:12 08:25 08:09 WBC (4.8-10.8) K/uL RBC (4.7-6.1) M/uL Hgb (14.0-18.0) g/dL Hct (42-52) % MCV (80-100) fL MCH (25-34) pg MCHC (32-36) g/dL RDW Std Deviation (36.4-46.3) fL RDW Coeff of Tl (11.5-14.5) % Plt Count (130-400) K/uL MPV (7.4-10.4) fL Immature Gran % (Auto) % Neut % (Auto) % Lymph % (Auto) % [place] % (Auto) % Eos % (Auto) % Baso % (Auto) % Neut # (Auto) (1.4-6.5) K/uL Lymph # (Auto) (1.2-3.4) K/uL [place] # (Auto) (0.11-0.59) K/uL Eos # (Auto) (0-0.5) K/uL Baso # (Auto) (0-0.2) K/uL Immature Gran # (Auto) (0.00-0.02) K/uL Sodium 133 L (136-145) mmol/L Potassium 3.9 (3.5-5.1) mmol/L Chloride 100 (98-107) mmol/L Carbon Dioxide 21 (21-32) mmol/L Anion Gap 12.0 H (3-11) BUN 27 H (7-18) mg/dl Creatinine 8.90 H* D (0.6-1.4) mg/dl Est Cr Clr Drug Dosing 12.5 ml/min Est GFR ( Amer) 7.0 ml/min Est GFR (Non-Af Amer) 6.0 ml/min BUN/Creatinine Ratio 3.1 L (10-20) Glucose 233 H (70-99) mg/dl POC Glucose 199 H 237 H (70-99) mg/dl Calcium 9.1 (8.5-10.1) mg/dl Magnesium 1.8 (1.8-2.4) mg/dl Total Bilirubin 0.6 (0.2-1) mg/dl AST 11 L (15-37) U/L ALT 14 (12-78) U/L Alkaline Phosphatase 202 H (45-117) U/L Total Protein 7.0 (6.4-8.2) gm/dl Albumin 2.3 L (3.4-5.0) gm/dl Globulin 4.7 H (2.5-4.0) gm/dl Albumin/Globulin Ratio 0.5 L (0.9-2) 11/02/20 Range/Units 08:09 WBC 16.03 H (4.8-10.8) K/uL RBC 4.03 L (4.7-6.1) M/uL Hgb 11.6 L (14.0-18.0) g/dL Hct 37.3 L (42-52) % MCV 92.6 (80-100) fL MCH 28.8 (25-34) pg MCHC 31.1 L (32-36) g/dL RDW Std Deviation 57.9 H (36.4-46.3) fL RDW Coeff of Tl 17.2 H (11.5-14.5) % Plt Count 340 (130-400) K/uL MPV 8.9 (7.4-10.4) fL Immature Gran % (Auto) 3.4 % Neut % (Auto) 77.4 % Lymph % (Auto) 5.9 % [place] % (Auto) 10.9 % Eos % (Auto) 2.2 % Baso % (Auto) 0.2 % Neut # (Auto) 12.42 H (1.4-6.5) K/uL Lymph # (Auto) 0.94 L (1.2-3.4) K/uL [place] # (Auto) 1.74 H (0.11-0.59) K/uL Eos # (Auto) 0.35 (0-0.5) K/uL Baso # (Auto) 0.04 (0-0.2) K/uL Immature Gran # (Auto) 0.54 H (0.00-0.02) K/uL Sodium (136-145) mmol/L Potassium (3.5-5.1) mmol/L Chloride (98-107) mmol/L Carbon Dioxide (21-32) mmol/L Anion Gap (3-11) BUN (7-18) mg/dl Creatinine (0.6-1.4) mg/dl Est Cr Clr Drug Dosing ml/min Est GFR ( Amer) ml/min Est GFR (Non-Af Amer) ml/min BUN/Creatinine Ratio (10-20) Glucose (70-99) mg/dl POC Glucose (70-99) mg/dl Calcium (8.5-10.1) mg/dl Magnesium (1.8-2.4) mg/dl Total Bilirubin (0.2-1) mg/dl AST (15-37) U/L ALT (12-78) U/L Alkaline Phosphatase (45-117) U/L Total Protein (6.4-8.2) gm/dl Albumin (3.4-5.0) gm/dl Globulin (2.5-4.0) gm/dl Albumin/Globulin Ratio (0.9-2) PG Care Time/CCT Total # of Minutes Spent Total Time Spent with Patient: Total time spent is greater than 50% in coordination of care (as documented) at patient's floor/unit and/or counseling patient: Coding Level of Care Code 57096 Subseq Hosp Care Lvl 2 Diagnoses Acute ischemic colitis K55.039 Leukocytosis D72.829 Diarrhea R19.7 HTN (hypertension) I10 CAD (coronary artery disease) I25.10 ESRD (end stage renal disease) N18.6 Congestive heart failure I50.42 Heart failure type: combined systolic and diastolic Heart failure chronicity: chronic Diabetes type 1, controlled E10.[address] Z96.41 (1) Congestive heart failure Heart failure type: combined systolic and diastolic Heart failure chronicity: chronic Qualified Code(s): I50.42 - Chronic combined systolic (congestive) and diastolic (congestive) heart failure
[2020-11-02] MEDS: SEVELAMER HCL 800 MG TABLET PO SCH (18:06)
--- NOTE | 2020-11-03 06:35 | Surgery Progress Note ---
Date of Service November 03, 2020 Assessment & Plan (1) Ischemic colitis: Plan: No acute changes overnight Taking minimal to no pain medication No plan for surgical intervention Discharge when medically stable Admission and Anticipated Discharge Date Admission Date: October 25, 2020 Subjective Patient resting comfortably Vital signs stable Review of Systems Review of Systems: All systems reviewed & are unremarkable except as noted in HPI & below Physical Exam Constitutional: well nourished; no acute distress Respiratory: normal respiratory effort; no labored breathing Cardiovascular: Rate/Rhythm: regular rate Gastrointestinal (Abdomen): Inspection/Auscultation: abdomen not distended Musculoskeletal: Head/Neck/Chest: normocephalic Results & Data ([facility]) Vital Signs (Past 12 Hours) Vital Signs Temp Pulse Resp BP Pulse Ox 11/02/20 22:56 36.6 C 76 18 129/63 97 PG Care Time/CCT Total # of Minutes Spent Total Time Spent with Patient: Total time spent is greater than 50% in coordination of care (as documented) at patient's floor/unit and/or counseling patient: Coding Level of Care Code 39142 Inpt Consult Level 3 Diagnoses Ischemic colitis K55.9
[2020-11-03 08:12] LABS: Basophils # (auto) 0.03 K/uL (0-0.2); Basophils % (auto) 0.2 %; Eosinophils # (auto) 0.25 K/uL (0-0.5); Eosinophils % (auto) 1.4 %; Hematocrit (blood only) 39.5 % (42-52); Hemoglobin 12.4 g/dL (14.0-18.0); Immature Granulocytes # (auto) 0.29 K/uL (0.00-0.02); Immature Granulocytes % (auto) 1.7 %; Lymphocytes # (auto) 1.23 K/uL (1.2-3.4); Lymphocytes % (auto) 7.1 %; Mean Corpuscular Hemoglobin 29.2 pg (25-34); Mean Corpuscular Hgb Conc 31.4 g/dL (32-36); Mean Corpuscular Volume 92.9 fL (80-100); Mean Platelet Volume 9.3 fL (7.4-10.4); Monocytes # (auto) 1.33 K/uL (0.11-0.59); Monocytes % (auto) 7.7 %; Neutrophils # (auto) 14.15 K/uL (1.4-6.5); Neutrophils % (auto) 81.9 %; Platelet Count 356 K/uL (130-400); Red Blood Count 4.25 M/uL (4.7-6.1); White Blood Count 17.28 K/uL (4.8-10.8)
[2020-11-03] MEDS: FUROSEMIDE 80 MG TAB PO SCH (08:40)
[2020-11-03] MEDS: DICYCLOMINE HCL 10 MG CAP PO SCH (08:40)
[2020-11-03] MEDS: LABETALOL HCL 100 MG TAB PO SCH (08:40)
[2020-11-03] MEDS: PANTOprazole 40 MG TAB PO SCH (08:40)
[2020-11-03] MEDS: SEVELAMER HCL 800 MG TABLET PO SCH ×2 (08:41→13:14)
[2020-11-03] MEDS: CALCITRIOL 0.25 MCG CAPSULE PO SCH (08:41)
[2020-11-03] MEDS: ASPIRIN 81 MG ECTAB PO SCH (08:41)
[2020-11-03] MEDS: ROSUVASTATIN CALCIUM 10 MG TAB PO SCH (08:41)
[2020-11-03] MEDS: metroNIDAZOLE 500 MG/100 ML BAG IV SCH (08:41)
[2020-11-03] MEDS: CINACALCET HCL 90 MG TAB PO SCH (08:41)
[2020-11-03] MEDS: CLOPIDOGREL BISULFATE 75 MG TAB PO SCH (08:46)
[2020-11-03] MEDS: HEPARIN SOD 5,000 UNIT/0.5 ML VIAL SQ SCH (08:46)
[2020-11-03] MEDS ORDERED: NEPHROCAPS PO SCH (09:00)
[2020-11-03 09:08] LABS: Calcium 10.3 mg/dl (8.5-10.1); Creatinine Clr Calc Pharmacy 17.2 ml/min; Est GFR (African American) 10.2 ml/min; Est GFR (Non-African American) 8.8 ml/min; Potassium 3.8 mmol/L (3.5-5.1)
[2020-11-03] MEDS: NovoLOG INSULIN PUMP SCH (10:18)
--- NOTE | 2020-11-03 10:49 | Nephrology Progress Note ---
Date of Service November 03, 2020 Assessment & Plan (1) ESRD (end stage renal disease): (2) Anemia: (3) HTN (hypertension): (4) Acute ischemic colitis: Plan: ESRD, on hemodialysis on Saturday, Saturday, Saturday via right brachiocephalic AV fistula, dialysis at [facility]. Admitted to the hospital with abdominal pain and diagnosed with ischemic colitis, Being managed conservatively, has been on liquid diet so far tolerating okay and symptom seem to be slowly improving. Has been getting dialysis regularly although getting minimum UF considering decrease p.o. intake and consequently some weight loss over last few days. Overall clinically improving, tolerating regular diet, abdominal pain improved. CTA abdomen pelvis showed SMA stenosis, evaluated by vascular surgery but no intervention indicated at this time. -- Okay to be discharged, he will have next dialysis tomorrow at outpatient unit however, Jayce knows to monitor his symptoms and go to ER if his abdominal pain again worsen -- Right arm nephrology precaution -- Continue calcitriol, Sensipar, resume Renvela with meal and renal cap daily will follow while inpatient. Admission and Anticipated Discharge Date Admission Date: October 25, 2020 Subjective Jayce reports having some back and abdominal discomfort since last night although this is unlike the pain he had when he initially presented to hospital. He is still able to maintain his p.o. intake without any significant worsening of abdominal symptoms. Diarrhea improved. Had dialysis yesterday, currently electrolyte, vital signs stable. He feels overall he will feel better once he goes home. Review of Systems Review of Systems: Detailed review of system otherwise unremarkable. Physical Exam Constitutional: well developed and well nourished; no acute distress Respiratory: normal respiratory effort, lungs clear to auscultation Cardiovascular: RRR, no murmur, no edema Neurologic: moves all extremities and awake; not confused Psychiatric: A+Ox3, euthymic affect Results & Data ([facility]) Vital Signs (Past 12 Hours) Vital Signs Temp Pulse Pulse Resp BP BP Pulse Ox 11/03/20 07:11 36.9 C 71 16 161/65 H 97 11/02/20 22:56 36.6 C 76 18 129/63 97 PG Care Time/CCT Total # of Minutes Spent Total Time Spent with Patient: Total time spent is greater than 50% in coordination of care (as documented) at patient's floor/unit and/or counseling patient: Coding Level of Care Code 70551 Subseq Hosp Care Lvl 3 Diagnoses ESRD (end stage renal disease) N18.6 Anemia D64.9 HTN (hypertension) I10 Acute ischemic colitis K55.039
[2020-11-03] MEDS: CIPROFLOXACIN / D5W 400 MG/200 ML BAG IV SCH (10:59)
--- NOTE | 2020-11-03 11:52 | Discharge Summary ---
Date of Service November 03, 2020 Admission HPI Per Admitting Provider 55 yo M returning to ER after being here yesterday for worsening sx of N/V/D. states it's been going on for 1-1.5 weeks. Was in ER yesterday, had labs and CT abd done showing some colitis, sent home after having zofran and stool sample taken. Today says all symptoms have been worse. 3 large "blow out" episodes of watery diarrhea while in ER, denies bloody stool, melena. Was at [facility] in [address] [place] [address] over the weekend where he drank bottled water, but says the symptoms preceded that trip. denies any SOB but does have to take small bursts of fast breaths to breathe through the pain. Describes pain as more of an abdominal discomfort located in lower abdomen, achy, feeling of needing to go to bathroom but not being able to. Mostly has been nauseous without vomiting at this point as he hasn't really eaten anything in 2 days. Denies fever/chills/night sweats. Principal Diagnosis Ischemic colitis, SMA stenosis Discharge Exam Constitutional WD/WN, vitals as above Eyes + anicteric sclerae Neck trachea midline, no thyromegaly Respiratory normal respiratory effort, lungs clear to auscultation Cardiovascular RRR, no murmur, no edema Gastrointestinal (Abdomen) Inspection/Auscultation: normal bowel sounds; abdomen not distended Percussion/Palpation: + abdomen tender (only mild with deep palp lower abd, no guarding) and abdomen soft; no guarding Musculoskeletal Extremities: extremities normal to inspection; no cyanosis and no clubbing Skin no rashes, warm and dry Neurologic moves all extremities and awake; no focal motor deficits Psychiatric A+Ox3, euthymic affect Lymphatic no lymphedema Discharge Data Allergies Allergy/AdvReac Type Severity Reaction Status Date / Time No Known Allergies Allergy Unverified 10/24/20 23:09 Consultations 10/25/20 02:10 ED Decision to Admit Stat 10/25/20 03:27 Consult Gastroenterology Routine 10/25/20 06:28 Consult Nephrology Routine 10/27/20 07:58 Consult General Surgery Routine 10/31/20 16:41 Consult Vascular Surgery Routine Procedures Performed Operation Date: 10/26/20 16:30 Actual Procedures p EGD Polypectomy - Marten Washburn, DO s Colonoscopy Polypectomy - Yuni Washburn DO Ordered Studies 10/25/20 02:41 CT abd pelvis wo con Urgent 10/25/20 02:43 CT chest diagnostic wo con Urgent 11/01/20 08:04 CT angio abdomen pelvis w con Urgent Chest/Abdomen X-ray 10/24/20 21:19 PA CHEST WITH ABDOMINAL SERIES CLINICAL HISTORY: Generalized abdominal pain. FINDINGS: A PA chest radiograph is compared to study dated 08/31/2013. The heart is enlarged noting atherosclerotic calcification of the thoracic aorta. The pulmonary vasculature is noncongested. A coronary artery stent is suggested. Chronic interstitial thickening is similar to previous. There is bibasilar scarring/atelectasis. No airspace consolidation or large pleural effusion is identified. No pneumothorax is seen. The skeletal structures are osteopenic. The bony thorax is grossly intact. Supine and erect abdominal radiographs are correlated with abdominal CT dated 10/23/2020. There is a nonobstructed abdominal bowel gas pattern. No evidence of intraperitoneal free air is seen. There are no abnormal abdominal calcifications. There is advanced atherosclerotic calcification of the abdominal aorta at its major branches. Vascular calcifications are also seen in the pelvis. The lumbosacral spine and bony pelvis appear intact. There is mild lumbosacral spondylosis. IMPRESSION: 1. Cardiomegaly with no active disease in the chest. 2. Nonobstructed abdominal bowel gas pattern. ACT 112: Negative or not required by law. Electronically signed by: Geovanny Frye M.D. 10/25/2020 9:42 AM Abdomen/Pelvis CT 10/25/20 02:41 CT SCAN OF THE CHEST, ABDOMEN, AND PELVIS WITHOUT IV CONTRAST CLINICAL HISTORY: Hypoxia. Nausea and vomiting. Lower abdominal pain. COMPARISON STUDY: Chest x-ray and abdominal radiograph dated 10/24/2020. Abdominal CT dated 10/23/2020. TECHNIQUE: Unenhanced CT scan of the chest, abdomen, and pelvis was performed from the thoracic inlet to the proximal femora. Images are reviewed in the axial, sagittal, and coronal planes. IV contrast was not administered as per the referring clinician. Note that the examination was performed in suboptimal fashion without oral and IV contrast. A dose lowering technique was utilized adhering to the principles of ALARA. CT DOSE: 2447.45 mGy.cm FINDINGS: CHEST: Thyroid: Imaged portions of the thyroid gland are normal in size and attenuation. Thoracic aorta: There is atherosclerotic calcification of the thoracic aorta, which is normal in caliber and demonstrates standard 3-vessel arch anatomy. Heart: The heart is enlarged and without pericardial effusion. The coronary arteries are densely calcified. Lungs and pleural spaces: There is no airspace consolidation or pleural effusion. The trachea and central airways are clear. Scarring/atelectasis is noted at the lung bases. There are scattered calcified granulomas. A 5 mm right upper lobe pulmonary nodule is seen image 119. A 3 mm right middle lobe pulmonary nodule is seen on image #124, and a 3 mm left upper lobe pulmonary nodule is seen on image #116. A 3 mm right lower lobe pulmonary nodule is seen on image #148. Mediastinum: There is no mediastinal lymphadenopathy. Vielka: Not well assessed without IV contrast. Axillae: There is no axillary lymphadenopathy. Bony thorax: The skeletal structures are osteopenic. No lytic or blastic lesions are identified. ABDOMEN AND PELVIS: Liver: The unenhanced liver is normal in size, contour, and attenuation. There is no intrahepatic biliary ductal dilatation. A 12 mm left lobe hypodensity on image #59 is unchanged. This likely represents a hemangioma but cannot be characterized on today's examination. Gallbladder: Vicariously excreted contrast fills the gallbladder. Spleen: Normal in size and attenuation. Pancreas: The unenhanced pancreas is moderately atrophic and grossly unremarkable. Adrenal glands: Unremarkable. Kidneys: The unenhanced kidneys are atrophic and without hydronephrosis. There are extensive bilateral renovascular calcifications. No renal calculi are clearly identified. A 10 mm exophytic cyst arises from the left lower pole. Abdominal vasculature: The abdominal aorta is normal in course and caliber noting advanced atherosclerotic calcification. Bowel: Focal narrowing of the transverse colon on image #113 is unchanged. Submucosal fat deposition throughout the colon is nonspecific but has been described in the setting of chronic inflammation. There is no high-grade bowel obstruction. There are mildly distended and gas-filled loops of proximal jejunum in the upper abdomen which measure up to 3.4 cm. No transition point is identified. The appendix is well-visualized and normal. Peritoneum: There is no intraperitoneal free air or abdominal ascites. Lymphadenopathy: None. Pelvic viscera: The prostate gland is enlarged and heterogeneous noting median lobe hypertrophy. The bladder is decompressed and not evaluated. Excreted IV c ontrast is present within the bladder lumen. Skeletal structures: The skeletal structures are osteopenic. There is mild lumbosacral spondylosis. Bilateral pars defects are noted at L5. A large poste rior disc bulge is seen at L4-L5. No lytic or blastic lesions are seen. IMPRESSION: 1. Cardiomegaly with no acute cardiopulmonary abnormality. 2. Scattered pulmonary nodules measure up to 5 mm. These are nonspecific and can be followed as per the Fleischner criteria. See below. 3. No acute infectious or inflammatory findings are identified in the abdomen or pelvis. 4. Focal narrowing is again seen in the transverse colon. This is nonspecific and may be related to stricture. An underlying mass lesion is not excluded and follow-up with colonoscopy is recommended. 5. There are mildly distended and gas-filled loops of proximal jejunum. This is a nonspecific finding and may represent mild ileus. Low-grade obstruction is considered less likely and clinical correlation will be required. Consider follow-up KUB in 1-2 days time for reassessment. 6. Advanced atherosclerotic vascular disease. 7. Additional findings as above. Please refer to below summary of Fleischner criteria recommendations for follow- up of incidental CT nodules (Jeffrey Patten, Guidelines for management of small pulmonary nodules detected on CT scans: A statement from the Fleischner Society, Radiology 237: [phone].) SOLID NODULES Solitary nodule size: <6 mm * low risk patients: no follow-up needed * high risk patients: optional CT at 12 months Solitary nodule size: 6-8 mm * low risk patients: follow-up at 6-12 months, then consider further follow-up at 18-24 months * high risk patients: initial follow-up CT at 6-12 months and then at 18-24 months if no change Solitary nodule size: >8 mm * either low or high risk patients - consider follow-up CT at 3 months, and/or CT-PET, and/or biopsy Multiple nodules size: <6 mm * low risk patients: no routine follow-up * high risk patients: optional CT at 12 months Multiple nodules size: 6-8 mm * low risk patients: follow-up at 3-6 months, then consider further follow-up at 18-24 months * high risk patients: follow-up at 3-6 months, then at 18-24 months if no change Multiple nodules size: >8 mm * low risk patients: follow-up at 3-6 months, then consider further follow-up at 18-24 months * high risk patients: follow-up at 3-6 months, then at 18-24 months if no change Note: newly detected indeterminate nodule in persons 35 years of age or older. * low risk patients: minimal or absent history of smoking and/or other known risk factors * high risk patients: history of smoking or of other known risk factors (e.g. first degree relative with lung cancer, or exposure to asbestos, radon, uranium) * if a nodule up to 8 mm is partly solid or is ground glass further follow-up is required after 24 months to exclude possible slow growing adenocarcinoma (PRINCE) SUBSOLID NODULES Solitary pure ground-glass nodule * nodule size <6 mm - no CT follow-up required * nodule size >=6 mm - follow-up CT at 6-12 months, then every 2 years until 5 years Solitary part-solid nodule * nodule size <6 mm - no CT follow-up required * nodule size >=6 mm - follow-up CT at 3-6 months. If unchanged, and solid component remains <6 mm, then annual follow-up for 5 years Multiple subsolid nodules * nodule size <6 mm - follow-up CT at 3-6 months, consider further follow-up at 2 and 4 years if stable * nodule size >=6 mm - follow-up CT at 3-6 months, subsequent management based on the most suspicious nodule(s) ACT 112: Negative or not required by law. Electronically signed by: Geovanny Frye M.D. 10/25/2020 9:[address] 10/25/20 02:43 CT SCAN OF THE CHEST, ABDOMEN, AND PELVIS WITHOUT IV CONTRAST CLINICAL HISTORY: Hypoxia. Nausea and vomiting. Lower abdominal pain. COMPARISON STUDY: Chest x-ray and abdominal radiograph dated 10/24/2020. Ab dominal CT dated 10/23/2020. TECHNIQUE: Unenhanced CT scan of the chest, abdomen, and pelvis was performed from the thoracic inlet to the proximal femora. Images are reviewed in the axial, sagittal, and coronal planes. IV contrast was not administered as per the referring clinician. Note that the examination was performed in suboptimal fashion without oral and IV contrast. A dose lowering technique was utilized adhering to the principles of ALARA. CT DOSE: 2447.45 mGy.cm FINDINGS: CHEST: Thyroid: Imaged portions of the thyroid gland are normal in size and attenuation. Thoracic aorta: There is atherosclerotic calcification of the thoracic aorta, which is normal in caliber and demonstrates standard 3-vessel arch anatomy. Heart: The heart is enlarged and without pericardial effusion. The coronary arteries are densely calcified. Lungs and pleural spaces: There is no airspace consolidation or pleural effusion. The trachea and central airways are clear. Scarring/atelectasis is noted at the lung bases. There are scattered calcified granulomas. A 5 mm right upper lobe pulmonary nodule is seen image 119. A 3 mm right middle lobe pulmonary nodule is seen on image #124, and a 3 mm left upper lobe pulmonary nodule is seen on image #116. A 3 mm right lower lobe pulmonary nodule is seen on image #148. Mediastinum: There is no mediastinal lymphadenopathy. Vielka: Not well assessed without IV contrast. Axillae: There is no axillary lymphadenopathy. Bony thorax: The skeletal structures are osteopenic. No lytic or blastic lesions are identified. ABDOMEN AND PELVIS: Liver: The unenhanced liver is normal in size, contour, and attenuation. There is no intrahepatic biliary ductal dilatation. A 12 mm left lobe hypodensity on image #59 is unchanged. This likely represents a hemangioma but cannot be characterized on today's examination. Gallbladder: Vicariously excreted contrast fills the gallbladder. Spleen: Normal in size and attenuation. Pancreas: The unenhanced pancreas is moderately atrophic and grossly unremarkable. Adrenal glands: Unremarkable. Kidneys: The unenhanced kidneys are atrophic and without hydronephrosis. There are extensive bilateral renovascular calcifications. No renal calculi are clearly identified. A 10 mm exophytic cyst arises from the left lower pole. Abdominal vasculature: The abdominal aorta is normal in course and caliber noting advanced atherosclerotic calcification. Bowel: Focal narrowing of the transverse colon on image #113 is unchanged. Submucosal fat deposition throughout the colon is nonspecific but has been described in the setting of chronic inflammation. There is no high-grade bowel obstruction. There are mildly distended and gas-filled loops of proximal jejunum in the upper abdomen which measure up to 3.4 cm. No transition point is identified. The appendix is well-visualized and normal. Peritoneum: There is no intraperitoneal free air or abdominal ascites. Lymphadenopathy: None. Pelvic viscera: The prostate gland is enlarged and heterogeneous noting median lobe hypertrophy. The bladder is decompressed and not evaluated. Excreted IV contrast is present within the bladder lumen. Skeletal structures: The skeletal structures are osteopenic. There is mild lumbosacral spondylosis. Bilateral pars defects are noted at L5. A large posterior disc bulge is seen at L4-L5. No lytic or blastic lesions are seen. IMPRESSION: 1. Cardiomegaly with no acute cardiopulmonary abnormality. 2. Scattered pulmonary nodules measure up to 5 mm. These are nonspecific and can be followed as per the Fleischner criteria. See below. 3. No acute infectious or inflammatory findings are identified in the abdomen or pelvis. 4. Focal narrowing is again seen in the transverse colon. This is nonspecific and may be related to stricture. An underlying mass lesion is not excluded and follow-up with colonoscopy is recommended. 5. There are mildly distended and gas-filled loops of proximal jejunum. This is a nonspecific finding and may represent mild ileus. Low-grade obstruction is considered less likely and clinical correlation will be required. Consider follow-up KUB in 1-2 days time for reassessment. 6. Advanced atherosclerotic vascular disease. 7. Additional findings as above. Please refer to below summary of Fleischner criteria recommendations for follow- up of incidental CT nodules (Jeffrey Patten, Guidelines for management of small pulmonary nodules detected on CT scans: A statement from the Fleischner Society, Radiology 237: [phone].) SOLID NODULES Solitary nodule size: <6 mm * low risk patients: no follow-up needed * high risk patients: optional CT at 12 months Solitary nodule size: 6-8 mm * low risk patients: follow-up at 6-12 months, then consider further follow-up at 18-24 months * high risk patients: initial follow-up CT at 6-12 months and then at 18-24 months if no change Solitary nodule size: >8 mm * either low or high risk patients - consider follow-up CT at 3 months, and/or CT-PET, and/or biopsy Multiple nodules size: <6 mm * low risk patients: no routine follow-up * high risk patients: optional CT at 12 months Multiple nodules size: 6-8 mm * low risk patients: follow-up at 3-6 months, then consider further follow-up at 18-24 months * high risk patients: follow-up at 3-6 months, then at 18-24 months if no c hange Multiple nodules size: >8 mm * low risk patients: follow-up at 3-6 months, then consider further follow-up at 18-24 months * high risk patients: follow-up at 3-6 months, then at 18-24 months if no change Note: newly detected indeterminate nodule in persons 35 years of age or older. * low risk patients: minimal or absent history of smoking and/or other known risk factors * high risk patients: history of smoking or of other known risk factors (e.g. first degree relative with lung cancer, or exposure to asbestos, radon, uranium) * if a nodule up to 8 mm is partly solid or is ground glass further follow-up is required after 24 months to exclude possible slow growing adenocarcinoma (PRINCE) SUBSOLID NODULES Solitary pure ground-glass nodule * nodule size <6 mm - no CT follow-up required * nodule size >=6 mm - follow-up CT at 6-12 months, then every 2 years until 5 years Solitary part-solid nodule * nodule size <6 mm - no CT follow-up required * nodule size >=6 mm - follow-up CT at 3-6 months. If unchanged, and solid component remains <6 mm, then annual follow-up for 5 years Multiple subsolid nodules * nodule size <6 mm - follow-up CT at 3-6 months, consider further follow-up at 2 and 4 years if stable * nodule size >=6 mm - follow-up CT at 3-6 months, subsequent management based on the most suspicious nodule(s) ACT 112: Negative or not required by law. Electronically signed by: Geovanny Frye M.D. 10/25/2020 9:07 AM Abdomen/Pelvis CTA 11/01/20 08:04 CT angio abdomen pelvis w con CLINICAL HISTORY: 55 years-old Male with ischemic colitis acute generalized abdominal pain with reported colitis COMPARISON STUDY: CT abdomen and pelvis 10/25/2020 and 10/23/2020 TECHNIQUE: Following the IV administration of 120 cc of Optiray, CT angiogram of the abdomen and pelvis was performed from the lung bases the proximal femora. Images are reviewed in the axial, sagittal, and coronal planes. 3-D MIPS images are created and assessed. All measurements were obtained according to NASCET criteria. IV contrast was administered without complication. A dose lowering technique was utilized adhering to the principles of ALARA. CT DOSE: 1157.11 mGycm FINDINGS: CT ABDOMEN/PELVIS: Cardiomegaly. Coronary artery calcifications. Mild bibasilar atelectasis/scarring. No pneumatosis or pneumoperitoneum. The spleen, atrophic pancreas and adrenal glands are unremarkable. Distended gallbladder contains hyperdense material suggestive of vicarious excretion of contrast. No CT evidence of acute cholecystitis. A 12 mm hypodense focus of the left hepatic lobe is unchanged, possibly a hemangioma. The liver is otherwise unremarkable. No evidence of cirrhosis. A 10 mm cyst is present within the inferior pole left kidney. Atrophic kidneys without hydronephrosis. Urinary bladder wall thickening with partial distention. Prostamegaly. No adenopathy. Scattered air-fluid levels throughout the large bowel. Mild wall thickening of the mid transverse colon is less pronounced than prior. Submucosal fat deposition of the cecum and ascending colon redemonstrated. Normal appendix. Scattered small bowel air-fluid levels. Mildly dilated loop of jejunum within the upper abdomen measures up to 3.4 cm transversely. This is similar in appearance to the 10/25/2020 exam. No transition point. Unremarkable soft tissues. No acute fracture or suspicious bone lesion. Degenerative changes of the spine, pelvis and hips. CTA: Extensive atherosclerosis of the abdominal aorta and branch vessels. Patent celiac trunk. 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 Additional areas of high-grade stenosis are noted within the mid vessel as seen on image 204 series 3. The distal branches of the superior mesenteric artery are difficult to evaluate secondary to extensive calcifications. Moderate stenosis at the origin of the inferior mesenteric artery with multifocal at least mild luminal narrowing. Advanced atherosclerosis of the renal arteries without high-grade stenosis at the origin on the left. There is at least moderate multifocal luminal narrowing of the right renal artery. The common iliac, external iliac, common femoral and imaged superficial femoral arteries are patent. IMPRESSION: 1. Scattered air-fluid levels throughout loops of large and small bowel may reflect ileus versus enteritis with diarrheal illness. Mildly dilated loop of jejunum within the upper abdomen is similar to comparison. A low-grade small bowel obstruction and is also within the differential however is considered less likely. 2. Mild wall thickening involving the transverse colon is less pronounced than prior. Again, this finding could be closed with a follow-up colonoscopy. 3. 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 4. High-grade stenosis at the origin of the left renal artery. 5. Additional findings as above. ACT 112: Negative or not required by law. The above report was generated using voice recognition software. It may contain grammatical, syntax or spelling errors. Electronically signed by: Santana Smith M.D. 11/01/2020 12:13 PM Hospital Course (1) Acute ischemic colitis: Presented with abdominal pain and found to have evidence of colitis in the mid transverse colon and the cecum on both imaging and on colonoscopy CT abdomen/pelvis does note diffuse plaque in the aorta, and general surgery reviewed his initial CT with IV contrast and thought that his SMA was stenosed Abdominal pain is now much improved, but still some remains. His loose stools have almost resolved. Tolerating low fiber diet, and leukocytosis finally improving but slightly up to 17k on day of discharge, remains afebrile C. difficile is negative-on 2 occasions Stool cultures negative on 2 occasions Lactate normal at 1.4 Pathology with sessile serrated adenoma as well as ulcerations and inflammation- will need appropriate GI f/u with repeat colonoscopy likely in 3 years given sessile serrated adenoma -Appreciate general surgery consultation-discussed care with colorectal surgery at [place]-recommends no surgery unless signs of peritonitis or emergent as he is high risk -Checked CT angiogram abdomen/pelvis-shows multifocal severe stenoses of the SMA as well as moderate stenosis of the GERARDO; also shows improvement of the colitis -Appreciate vascular surgery consult--> "Pt with significant diffuse calcified arterial disease in abdomen, not amenable to endovascular treatment. Pt sx appear to have improved since admission. If pt sx recur or there are signs of peritonitis, recommend pt be eval at tertiary center for surgical options" -Received IV Cipro and Flagyl and will convert to p.o. for total 21-day course after discharge Continue pain control as needed -If develops worsening pain or fever, would re-image abdomen with IV contrast and recommended he be transferred to or go directly to [place] which he says is equidistant from his house as [facility] [address] -Continue low fiber diet after discharge -Check CBC in 1 week with PCP -will have Nurse Navigator arrange for outpatient consultation with Colorectal Surgeon at [facility] for second opinion (2) Leukocytosis: As above, sustained at 19 for a few days but now improving to 16-17 C. difficile twice several days apart given ongoing loose stools-negative Afebrile, but if spikes fever, would check blood cultures and reimage as above He makes very little urine and it appeared normal to him when he last went No evidence of infection anywhere else, no pneumonia or atelectasis, no rashes or cellulitis Follow CBC as outpt (3) Diarrhea: As above, secondary to ischemic colitis-finally improving now as above C. difficile negative, stool culture negative (4) HTN (hypertension): Acceptable blood pressures Continue labetalol 100 mg p.o. twice daily Avoid hypotension given ischemic colitis and SMA stenosis (5) CAD (coronary artery disease): No current anginafollow clinically Continue home aspirin, Plavix Continue labetalol, rosuvastatin (6) ESRD (end stage renal disease): Nephrology following, Saturday dialysis Continue sevelamer, Lasix 80 mg p.o. twice daily, cinacalcet, Nephrocaps (7) Congestive heart failure: 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; clinically well compensatedfluid removal with dialysis otherwise no change Continue Lasix (8) Diabetes type 1, controlled: With insulin pump in place Glucose is well controlled (9) Insulin pump in place: As above DVT prophylaxis-SQ heparin Disposition-dc to home Total Time Total Time Spent Total Time Spent (In Minutes): 35 min Discharge Plan Discharge Items Patient Disposition: Home - Self-Care Reason For Visit: INTRACTABLE NAUSEA Discharge Diagnosis: Ischemic colitis Superior mesenteric artery stenosis Condition on Discharge: Fair Activity: Resume your previous activity Non-emergency contact: Primary Care Provider and Surgeon Call non-emergency contact if: you have any medication questions, your symptoms worsen, your pain is not controlled, your pain is worsening, your pain is unusual for you, your pain is concerning for you and you have a fever Follow-up/Referrals: Den James MD, FACS [Physician] - (As needed, call if you have any questions or need help making an appt with colorectal surgery) Radha Alan CRNP [Primary Care Provider] - (Follow up within 1-2 weeks.) Diet: Dialysis Renal and Low Fiber Addtl Attending Provider Instructions: Continue on the antibiotics, cipro and Flagyl, for 7 more days for your colitis. Continue a low fiber diet until abdominal pain completely resolved. The nurse navigator made a referral to [facility] for you and Zaina should be reaching out to let you know your appointment date and time. If you have worsening abdominal pain, nausea, fevers, please go to the hospital right away. If you need to be admitted to a hospital, it would be better if you went to a tertiary care hospital such as [facility] where your complex case could be handled best. Please follow up with your PCP and have a repeat CBC in 1 week to check your white blood cell count to ensure it is returning to normal. Pending Studies at Discharge: No Stand-Alone Forms: [facility], Virtual Emergency Department, Important Visit Information Medications and DC Order Prescriptions: New acetaminophen 325 mg Tablet 650 mg PO Q4H PRN (Reason: pain) Qty: 30 RF: 0 pantoprazole 40 mg Tablet,Delayed Release (Dr/Ec) 40 mg PO BID Qty: 60 RF: 0 ciprofloxacin HCl 500 mg tablet 500 mg PO DAILY Qty: 7 RF: 0 metronidazole 500 mg tablet 500 mg PO Q8H 7 Days Qty: 21 RF: 0 Continued aspirin [Adult Aspirin Regimen] 81 mg tablet,delayed release (DR/EC) 81 mg PO DAILY RF: 0 calcitriol 0.25 mcg capsule 0.25 mcg PO Q OTHER DAY RF: 0 furosemide [Lasix] 80 mg tablet 80 mg PO BID Qty: 180 RF: 3 labetalol 100 mg tablet 100 mg PO BID Qty: 180 RF: 3 rosuvastatin 10 mg tablet 10 mg PO DAILY Qty: 90 RF: 1 insulin aspart U-100 [Novolog U-100 Insulin aspart] 100 unit/mL solution 70 unit continuous subcutaneous infusion DAILY 90 Days Qty: 63 RF: 3 cinacalcet [Sensipar] 90 mg tablet 90 mg PO DAILY RF: 0 clopidogrel 75 mg tablet 75 mg PO DAILY RF: 0 sevelamer carbonate 800 mg tablet 2,400 mg PO ACHS RF: 0 ondansetron HCl [Zofran] 4 mg tablet 4 mg PO Q6H PRN (Reason: nausea and vomiting) Qty: 10 RF: 0 Discharge Orders: Discharge Order (Routine); Ordered 11/03/20 Ordered By: Jasmyn Mathew/Other Patient Handouts: Managing Type 1 Diabetes, Special Foot Care for Diabetes Admission Data Admit Date/Time: 10/25/20 03:23 Attending Provider: Jasmyn Bedoya Admit Provider: Yasmine Wynn Primary Care Provider: Radha Alan Other Providers: Phyllis Clarke ; Andi Hemphill ; Aster Knapp ; Den James ; Long Tanner Other Interventions: Discharge Summary Assessment (RN) Last Done: 10/26/20 11:23 Coding Level of Care Code D/C DAY MANAGEMENT >30 MINS Diagnoses Acute ischemic colitis K55.039 Leukocytosis D72.829 Diarrhea R19.7 HTN (hypertension) I10 CAD (coronary artery disease) I25.10 ESRD (end stage renal disease) N18.6 Congestive heart failure I50.42 Heart failure type: combined systolic and diastolic Heart failure chronicity: chronic Diabetes type 1, controlled E10.[address] Z96.41
== END 2020-11-03 14:06 | disposition home or self-care (01) | DRG 393 ==
LOC: ED 18:55 → 3N 10-25 03:23 → SUATTDRO 10-25 03:23 → 3N 10-25 04:10